=== PATIENT | female | born 1930 | race Caucasian/White ===

== ENCOUNTER 2016-04-22 12:22 | Inpatient (IN) | payer MEDICARE, OTHER ==
[2016-04-22] MEDS ORDERED: FUROSEMIDE 10 MG/ML 4 ML VIAL IV STA (12:24)
[2016-04-22] MEDS ORDERED: IPRATROPIUM-ALBUTEROL 3 ML NEB INHALATION STA (12:24)
[2016-04-22] MEDS ORDERED: NITROGLYCERIN OINT 1 INCH/GM PACKET TOPICAL STA (12:24)
--- NOTE | 2016-04-22 12:26 | ED ---
SOB HPI - General Stated Complaint: ANGELITA Time Seen by Provider: 04/22/16 12:22 Source: patient, EMS, RN notes reviewed Mode of arrival: EMS - History of Present Illness Initial Comments: This is a 85-year-old female history of CHF who apparently has had 3 days of shortness of breath which is getting progressively worse. She was on Lasix but was given 40 mg Lasix IM this morning at 10 AM without much relief. She was given 2 DuoNeb's and route as well as nitro which did drop her pressure somewhat but also did help the breathing. She did reportedly have audible rhonchi. No fevers chills or sweats reported no chest pain. MD Complaint: shortness of breath - Related Data Home Medications Medication Instructions Recorded Confirmed Memantine [Namenda] 10 mg PO BID 04/10/15 04/22/16 Acetaminophen Tab [Tylenol Tab] 650 mg PO Q4H PRN 04/22/16 04/22/16 Ascorbic Acid [Vitamin C] 500 mg PO HS 04/22/16 04/22/16 Biotin 250 mg PO DAILY 04/22/16 04/22/16 Bisacodyl 10 mg RECTAL DAILY PRN 04/22/16 04/22/16 Dermaseptin Ointment 1 applic TOPICAL TID 04/22/16 04/22/16 Furosemide [Lasix] 40 mg PO ONCE 04/22/16 04/22/16 Ipratropium-Albuterol Nebulize 3 ml INHALATION Q6H PRN 04/22/16 04/22/16 [Duoneb 0.5 mg-3 mg/3 ml Soln] Magnesium Oxide [Mag-Ox] 250 mg PO DAILY 04/22/16 04/22/16 Multivitamins, Thera [Multivitamin] 1 tab PO HS 04/22/16 04/22/16 [place]-3 Fatty Acids/Fish Oil [Fish 1 cap PO HS 04/22/16 04/22/16 Oil 1,000 mg Softgel] Ubidecarenone [Co Q-10] 200 mg PO DAILY 04/22/16 04/22/16 Zinc 50 mg PO DAILY 04/22/16 04/22/16 guaiFENesin-DM 100-10MG/5ML 10 ml PO Q6H PRN 04/22/16 04/22/16 [Robitussin DM] predniSONE 40 mg PO DAILY 04/22/16 04/22/16 Previous Rx's Medication Instructions Recorded Aspirin 81 mg PO DAILY #1 chew 03/17/14 Allergies Allergy/AdvReac Type Severity Reaction Status Date / Time No Known Allergies Allergy Verified 04/22/16 12:36 Review of Systems ROS Statement: Those systems with pertinent positive or pertinent negative responses have been documented in the HPI. ROS Other: All systems not noted in ROS Statement are negative. Past Medical History Past Medical History: Heart Failure, Dementia, Thyroid Disorder History of Any Multi-Drug Resistant Organisms: None Reported Past Surgical History: Tonsillectomy Past Anesthesia/Blood Transfusion Reactions: No Reported Reaction Past Psychological History: No Psychological Hx Reported Smoking Status: Former smoker Past Alcohol Use History: None Reported Past Drug Use History: None Reported - Past Family History Mother Family Medical History: Diabetes Mellitus Father Family Medical History: No Reported History General Exam - General Exam Comments Initial Comments: This is a well-developed well-nourished awake alert anxious appearing female Limitations: no limitations General appearance: alert, anxious, in distress Head exam: Present: atraumatic, normocephalic, normal inspection Eye exam: Present: normal appearance, PERRL, EOMI. Absent: scleral icterus, conjunctival injection, periorbital swelling ENT exam: Present: mucous membranes dry Neck exam: Present: normal inspection. Absent: tenderness, meningismus, lymphadenopathy Respiratory exam: Present: rales, rhonchi, accessory muscle use, decreased breath sounds. Absent: respiratory distress, wheezes, stridor Cardiovascular Exam: Present: normal rhythm, tachycardia, normal heart sounds. Absent: systolic murmur, diastolic murmur, rubs, gallop, clicks GI/Abdominal exam: Present: soft, normal bowel sounds. Absent: distended, tenderness, guarding, rebound, rigid Extremities exam: Present: normal inspection, full ROM, normal capillary refill. Absent: tenderness, pedal edema, joint swelling, calf tenderness Back exam: Present: normal inspection Neurological exam: Present: alert, oriented X3, CN II-XII intact Psychiatric exam: Present: anxious Skin exam: Present: warm, dry, intact, normal color. Absent: rash Course Vital Signs 04/22/16 04/22/16 04/22/16 12:27 13:00 13:14 Temperature 97.5 F L Pulse Rate 90 94 105 H Respiratory 24 36 H 33 H Rate Blood Pressure 136/59 O2 Sat by Pulse 96 Oximetry 04/22/16 04/22/16 04/22/16 13:32 14:25 15:19 Temperature Pulse Rate 111 H 105 H 104 H Respiratory 22 18 22 Rate Blood Pressure 133/59 147/65 145/61 O2 Sat by Pulse 96 94 L 94 L Oximetry 04/22/16 17:09 Temperature Pulse Rate 133 H Respiratory 18 Rate Blood Pressure 113/69 O2 Sat by Pulse 97 Oximetry - Reevaluation(s) Reevaluation #1: 04/22/16 17:12 I did reevaluate the patient several occasions she get some improvement with the initial treatment. She still remained tachycardic. Reevaluation #2: 04/22/16 17:13 I did discuss the case with Dr. Pedroza did come in the emergency department see the patient. Pulmonalis and was considered. CAT scan was performed and there is no definitive evidence of embolism at this time. Pulmonary fibrotic changes are present however. Medical Decision Making - Medical Decision Making The patient will be admitted for evaluation of dyspnea. She is a former smoker primary fibrosis is considered as well as COPD. Though clinically the patient did appear to have evidence of congestive failure her BMP was within normal limits for her age. - Lab Data Result diagrams: 04/22/16 12:39 04/22/16 12:39 Lab Results 04/22/16 04/22/16 04/22/16 Range/Units 12:39 12:39 12:39 WBC 5.6 (3.8-10.6) k/uL RBC 4.22 (3.80-5.40) m/uL Hgb 13.2 (11.4-16.0) gm/dL Hct 39.7 (34.0-46.0) % MCV 94.2 (80.0-100.0) fL MCH 31.2 (25.0-35.0) pg MCHC 33.1 (31.0-37.0) g/dL RDW 12.4 (11.5-15.5) % Plt Count 169 (150-450) k/uL Neutrophils % 86 % Lymphocytes % 10 % Monocytes % 3 % Eosinophils % 0 % Basophils % 0 % Neutrophils # 4.8 (1.3-7.7) k/uL Lymphocytes # 0.6 L (1.0-4.8) k/uL Monocytes # 0.1 (0-1.0) k/uL Eosinophils # 0.0 (0-0.7) k/uL Basophils # 0.0 (0-0.2) k/uL PT (9.0-12.0) sec INR (<1.1) APTT (22.0-30.0) sec Sodium 135 L (137-145) mmol/L Potassium 4.5 (3.5-5.1) mmol/L Chloride 93 L (98-107) mmol/L Carbon Dioxide 31 H (22-30) mmol/L Anion Gap 11 mmol/L BUN 12 (7-17) mg/dL Creatinine 0.51 L (0.52-1.04) mg/dL Est GFR (MDRD) Af Amer >60 (>60 ml/min/1.73 sqM) Est GFR (MDRD) Non-Af >60 (>60 ml/min/1.73 sqM) Glucose 176 H (74-99) mg/dL Calcium 9.7 (8.4-10.2) mg/dL Magnesium 1.7 (1.6-2.3) mg/dL Total Bilirubin 0.3 (0.2-1.3) mg/dL AST 18 (14-36) U/L ALT 25 (9-52) U/L Alkaline Phosphatase 131 H (38-126) U/L Total Creatine Kinase <20 L (30-135) U/L CK-MB (CK-2) 0.7 (0.0-2.4) ng/mL CK-MB (CK-2) Rel Index 0.0 Troponin I <0.012 (0.000-0.034) ng/mL NT-Pro-B Natriuret Pep pg/mL Total Protein 6.9 (6.3-8.2) g/dL Albumin 3.7 (3.5-5.0) g/dL 04/22/16 04/22/16 Range/Units 12:39 12:39 WBC (3.8-10.6) k/uL RBC (3.80-5.40) m/uL Hgb (11.4-16.0) gm/dL Hct (34.0-46.0) % MCV (80.0-100.0) fL MCH (25.0-35.0) pg MCHC (31.0-37.0) g/dL RDW (11.5-15.5) % Plt Count (150-450) k/uL Neutrophils % % Lymphocytes % % Monocytes % % Eosinophils % % Basophils % % Neutrophils # (1.3-7.7) k/uL Lymphocytes # (1.0-4.8) k/uL Monocytes # (0-1.0) k/uL Eosinophils # (0-0.7) k/uL Basophils # (0-0.2) k/uL PT 10.1 (9.0-12.0) sec INR 1.0 (<1.1) APTT 23.5 (22.0-30.0) sec Sodium (137-145) mmol/L Potassium (3.5-5.1) mmol/L Chloride (98-107) mmol/L Carbon Dioxide (22-30) mmol/L Anion Gap mmol/L BUN (7-17) mg/dL Creatinine (0.52-1.04) mg/dL Est GFR (MDRD) Af Amer (>60 ml/min/1.73 sqM) Est GFR (MDRD) Non-Af (>60 ml/min/1.73 sqM) Glucose (74-99) mg/dL Calcium (8.4-10.2) mg/dL Magnesium (1.6-2.3) mg/dL Total Bilirubin (0.2-1.3) mg/dL AST (14-36) U/L ALT (9-52) U/L Alkaline Phosphatase (38-126) U/L Total Creatine Kinase (30-135) U/L CK-MB (CK-2) (0.0-2.4) ng/mL CK-MB (CK-2) Rel Index Troponin I (0.000-0.034) ng/mL NT-Pro-B Natriuret Pep 532 pg/mL Total Protein (6.3-8.2) g/dL Albumin (3.5-5.0) g/dL - EKG Data -: EKG Interpreted by Nd EKG shows normal: sinus rhythm (Sinus rhythm rate 92 [place] interval 150 QRS duration 90 QT/QTC of 336/[address] changes artifact is present) - Radiology Data Radiology results: report reviewed (I did review the x-rays and a CAT scan reports. There is evidence of pulmonary fibrotic changes no definite evidence of pulmonary embolism no filling defects. No hilar masses no mediastinal adenopathy. There is erythematous thoracic aorta.), image reviewed Critical Care Time Critical Care Time: Yes Critical Care Time: 34 minutes of critical care time which included initial monitoring the EMS run and discussed with paramedics. Social history and physical the patient. Labs and x-ray orders as well as evaluation of same. Evaluation the patient on multiple occasions for responsive therapy. Discussion with family members discussion with family. Discussion with the admitting physician. Admission orders and documentation of the above. Disposition Clinical Impression: Acute exacerbation of chronic obstructive airways disease, Adult respiratory distress syndrome, Pulmonary fibrosis, Tachycardia Disposition: ADMITTED IP TO THIS HOSP Condition: Stable
[2016-04-22 12:49] LABS: Basophils % (A) 0 %; CH 31.9; CHCM 34.1; Eosinophils % (A) 0 %; HCT 39.7 % (34.0-46.0); HDW 2.43; HGB 13.2 gm/dL (11.4-16.0); Luc # (Auto) 0.05; Luc % (Auto) 1; Lymphocytes # (A) 0.6 k/uL (1.0-4.8); Lymphocytes % (A) 10 %; MCH 31.2 pg (25.0-35.0); MCHC 33.1 g/dL (31.0-37.0); MCV 94.2 fL (80.0-100.0); Mean Platelet Volume 7.3; Monocytes # (A) 0.1 k/uL (0-1.0); Monocytes % (A) 3 %; Neutrophils # (A) 4.8 k/uL (1.3-7.7); Neutrophils % (A) 86 %; RBC 4.22 m/uL (3.80-5.40); RDW 12.4 % (11.5-15.5); WBC 5.6 k/uL (3.8-10.6); WBC (Perox) 5.62
[2016-04-22 12:57] LABS: ALT 25 U/L (9-52); AST 18 U/L (14-36); Alkaline Phosphatase 131 U/L (38-126); Anion Gap 11 mmol/L; Blood Urea Nitrogen 12 mg/dL (7-17); Calcium 9.7 mg/dL (8.4-10.2); Carbon Dioxide 31 mmol/L (22-30); Chloride 93 mmol/L (98-107); Glucose 176 mg/dL (74-99); Magnesium 1.7 mg/dL (1.6-2.3); Non-African American GFR(MDRD) >60 (>60 ml/min/1.73 sqM); Potassium 4.5 mmol/L (3.5-5.1); Sodium 135 mmol/L (137-145); Total Bilirubin 0.3 mg/dL (0.2-1.3); Total Protein 6.9 g/dL (6.3-8.2)
[2016-04-22 12:58] LABS: Partial Thromboplastin Time 23.5 sec (22.0-30.0); Prothrombin Time 10.1 sec (9.0-12.0)
--- NOTE | 2016-04-22 13:00 | XR ---
EXAMINATION TYPE: XR chest 2V DATE OF EXAM: 04/22/2016 12:52 PM COMPARISON: 04/09/2015 HISTORY: Difficulty breathing FINDINGS: The lungs are clear and there is no pneumothorax, pleural effusion, or focal pneumonia. The heart is enlarged. Diffuse osteopenia and arthropathy of the shoulders noted. Coarsened interstitium noted correlate for underlying COPD and interstitial lung disease. Hypertrophic and degenerative change of the spine. IMPRESSION: 1. Correlate for COPD. Interstitium is coarsened which can be seen with chronic interstitial lung dis ease. Acute interstitial pneumonitis or mild venous congestion not excluded correlate clinically.
[2016-04-22 13:11] LABS: Creatine Kinase <20 U/L (30-135)
[2016-04-22 13:24] LABS: Creatine Kinase MB 0.7 ng/mL (0.0-2.4); Troponin I <0.012 ng/mL (0.000-0.034)
[2016-04-22] MEDS ORDERED: guaiFENesin-DM 100-10MG/5ML 10 ML CUP PO PRN (15:33)
[2016-04-22] MEDS ORDERED: IPRATROPIUM-ALBUTEROL 3 ML NEB INHALATION PRN ×2 (15:33→20:38)
[2016-04-22] MEDS ORDERED: RX INFO: IV CONTRAST WAS GIVEN 1 EACH MISC MISCELLANE PRN (15:42)
--- NOTE | 2016-04-22 16:53 | CT ---
EXAMINATION TYPE: CT angio chest DATE OF EXAM: 04/22/2016 4:43 PM COMPARISON: NONE HISTORY: Patient poor historian. Patient shows signs of difficulty breathing and chest congestion. CT DLP: 286.9 mGycm Automated exposure control for dose reduction was used. CONTRAST: CTA scan of the thorax is performed with IV Contrast, patient injected with 100 mL of Omnipaque 350, pulmonary embolism protocol. MIP images are created and reviewed. 3D reconstructed images are creat ed on an independent workstation and reviewed. FINDINGS: There is mild coarsening of interstitial markings. There is no sign of a pulmonary mass. Heart is enl arged. Exam is limited slightly by motion. I see no filling defects in the pulmonary arteries. There are no hilar masses. There is no mediastina l adenopathy. Thoracic aorta is atheromatous. IMPRESSION: PULMONARY FIBROTIC CHANGES. CARDIOMEGALY. LIMITED EXAM DUE TO MOTION. NO DEFINITE EVIDENCE FOR PULMON JEWEL EMBOLISM.
[2016-04-22] MEDS ORDERED: ACETAMINOPHEN TAB 325 MG TAB PO PRN (17:24)
[2016-04-22] MEDS ORDERED: methylPREDNISolone SOD SUCCI 125 MG/2 ML VIAL IV SCH (18:00)
[2016-04-22] MEDS: SODIUM CHLORIDE 0.9% 1,000 ML IV SCH (18:50)
--- NOTE | 2016-04-22 19:23 | P.HPIM ---
History of Present Illness H&P Date: 04/22/16 Chief Complaint: Difficulty breathing 84-year-old female who is currently a resident of [facility] is admitted to the hospital with complaints of difficulty breathing. Patient was accompanied by her daughter's friend who apparently noted that she was in her normal health until 2 days ago. Patient apparently was progressively gotten worse in regards to her breathing and hence was sent to the hospital by the [place] [facility]. Most of the history is obtained from the chart as patient is minimally responsive to questions. States that she is fine. Denies having any cough, chest pain, abdominal pain or diarrhea. In the ER an EKG did not reveal any ST-T wave changes. A chest x-ray initially showed increased interstitial markings. Patient was on prednisone 40 mg prior to admission. Patient apparently does have a remote history of smoking. She was tachycardic and with patient being nonambulatory and suspicion of a pulmonary embolism a CT angiogram was done which was negative. Patient however does have signs of pulmonary fibrosis and increased interstitial markings. Review of Systems All systems: negative (Described in HPI) Past Medical History Past Medical History: Heart Failure, Dementia, Thyroid Disorder Additional Past Medical History / Comment(s): Parkinsons Disease History of Any Multi-Drug Resistant Organisms: None Reported Past Surgical History: Tonsillectomy Additional Past Surgical History / Comment(s): Right hip replacement Past Anesthesia/Blood Transfusion Reactions: No Reported Reaction Past Psychological History: No Psychological Hx Reported Smoking Status: Former smoker Past Alcohol Use History: None Reported Past Drug Use History: None Reported - Past Family History Mother Family Medical History: Diabetes Mellitus Father Family Medical History: No Reported History Medications and Allergies Home Medications Medication Instructions Recorded Confirmed Type Memantine [Namenda] 10 mg PO BID 04/10/15 04/22/16 History Acetaminophen Tab [Tylenol Tab] 650 mg PO Q4H PRN 04/22/16 04/22/16 History Ascorbic Acid [Vitamin C] 500 mg PO HS 04/22/16 04/22/16 History Biotin 250 mg PO DAILY 04/22/16 04/22/16 History Bisacodyl 10 mg RECTAL DAILY PRN 04/22/16 04/22/16 History Dermaseptin Ointment 1 applic TOPICAL TID 04/22/16 04/22/16 History Furosemide [Lasix] 40 mg PO ONCE 04/22/16 04/22/16 History Ipratropium-Albuterol Nebulize 3 ml INHALATION Q6H PRN 04/22/16 04/22/16 History [Duoneb 0.5 mg-3 mg/3 ml Soln] Magnesium Oxide [Mag-Ox] 250 mg PO DAILY 04/22/16 04/22/16 History Multivitamins, Thera [Multivitamin] 1 tab PO HS 04/22/16 04/22/16 History [place]-3 Fatty Acids/Fish Oil [Fish 1 cap PO HS 04/22/16 04/22/16 History Oil 1,000 mg Softgel] Ubidecarenone [Co Q-10] 200 mg PO DAILY 04/22/16 04/22/16 History Zinc 50 mg PO DAILY 04/22/16 04/22/16 History guaiFENesin-DM 100-10MG/5ML 10 ml PO Q6H PRN 04/22/16 04/22/16 History [Robitussin DM] predniSONE 40 mg PO DAILY 04/22/16 04/22/16 History Allergies Allergy/AdvReac Type Severity Reaction Status Date / Time No Known Allergies Allergy Verified 04/22/16 12:36 Physical Exam Vitals: Vital Signs Temp Pulse Pulse Resp BP BP Pulse Ox 04/22/16 18:38 97.4 F L 107 H 20 142/66 95 04/22/16 17:54 98.4 F 94 22 144/65 100 04/22/16 17:28 98.2 F 104 H 24 125/57 104 H Intake and Output 04/22/16 04/22/16 04/22/16 06:59 14:59 22:59 Other: Weight 61.235 kg Patient Weight 04/23/16 06:59 Weight 61.235 kg Gen. appearance patient answers only a few questions in no distress Lungs diffuse wheezes and no rhonchi appreciated Heart slightly tachycardic no murmur appreciated Abdomen is soft nontender no organomegaly. Lower extremity is 1+ edema is appreciated Neurologically moves all 4 extremities however does not follow all commands at this time. Results CBC & Chem 7: 04/22/16 12:39 04/22/16 12:39 Assessment and Plan Plan: #1 acute hypoxic respiratory failure secondary to an acute exacerbation of COPD likely from tracheobronchitis #2 history of diastolic heart failure #3 history of hypertension #4 history of dementia #5 previous history of a right hip fracture #6 metabolic alkalosis #7 debility Plan Start patient on IV Solu-Medrol 40 mg every 8 hours. Breathing treatments as scheduled.Code status will need to be addressed DVT prophyalxis.
[2016-04-22] MEDS ORDERED: IPRATROPIUM-ALBUTEROL 3 ML NEB INHALATION SCH (20:00)
[2016-04-22] MEDS ORDERED: NON-FORMULARY DRUG (Omega-3 Fatty Acids/Fish Oil [Fish Oil 1,000 Mg Softgel] 1 CAP) PO SCH (21:00)
[2016-04-22] MEDS: MULTIVITAMINS, THERA 1 EACH TAB PO SCH (21:04)
[2016-04-22] MEDS: MEMANTINE 10 MG TAB PO SCH (21:04)
[2016-04-22] MEDS: ASCORBIC ACID 500 MG TAB PO SCH (21:04)
[2016-04-22] MEDS: AZITHROMYCIN 250 MG TAB PO SCH (21:04)
[2016-04-23] MEDS: methylPREDNISolone SOD SUCCI 40 MG/ML 1 ML VIAL IV SCH ×4 (00:12→23:14)
[2016-04-23] MEDS: IPRATROPIUM-ALBUTEROL 3 ML NEB INHALATION SCH ×4 (07:09→20:02)
[2016-04-23] MEDS: ASPIRIN 81 MG CHEW PO SCH (08:09)
[2016-04-23] MEDS: MEMANTINE 10 MG TAB PO SCH ×2 (08:09→20:22)
[2016-04-23] MEDS: AZITHROMYCIN 250 MG TAB PO SCH (08:09)
[2016-04-23] MEDS: ZINC GLUCONATE 50 MG TAB PO SCH (08:09)
[2016-04-23] MEDS: MAGNESIUM OXIDE 250 MG TAB PO SCH (08:09)
[2016-04-23] MEDS ORDERED: AZITHROMYCIN 250 MG TAB PO SCH (09:00)
[2016-04-23] MEDS ORDERED: NON-FORMULARY DRUG (Ubidecarenone [Co Q-10] 200 MG) PO SCH (09:00)
[2016-04-23] MEDS ORDERED: predniSONE 20 MG TAB PO SCH (09:00)
[2016-04-23 09:27] LABS: Basophils % (A) 0 %; CH 31.5; Eosinophils % (A) 0 %; HCT 39.1 % (34.0-46.0); HDW 2.35; HGB 12.9 gm/dL (11.4-16.0); Luc # (Auto) 0.02; Luc % (Auto) 0; Lymphocytes # (A) 0.6 k/uL (1.0-4.8); Lymphocytes % (A) 6 %; MCH 30.9 pg (25.0-35.0); MCHC 33.1 g/dL (31.0-37.0); MCV 93.2 fL (80.0-100.0); Mean Platelet Volume 7.6; Monocytes # (A) 0.3 k/uL (0-1.0); Monocytes % (A) 4 %; Neutrophils # (A) 8.8 k/uL (1.3-7.7); Neutrophils % (A) 90 %; RDW 12.4 % (11.5-15.5); WBC 9.8 k/uL (3.8-10.6); WBC (Perox) 9.91
[2016-04-23 09:48] LABS: ALT 31 U/L (9-52); AST 15 U/L (14-36); Alkaline Phosphatase 133 U/L (38-126); Anion Gap 12 mmol/L; Blood Urea Nitrogen 18 mg/dL (7-17); Calcium 10.1 mg/dL (8.4-10.2); Carbon Dioxide 32 mmol/L (22-30); Chloride 96 mmol/L (98-107); Glucose 150 mg/dL (74-99); Non-African American GFR(MDRD) >60 (>60 ml/min/1.73 sqM); Potassium 3.8 mmol/L (3.5-5.1); Sodium 140 mmol/L (137-145); Total Bilirubin 0.3 mg/dL (0.2-1.3); Total Protein 6.7 g/dL (6.3-8.2)
[2016-04-23] MEDS: SODIUM CHLORIDE 0.9% 1,000 ML IV SCH (18:15)
[2016-04-23] MEDS: ASCORBIC ACID 500 MG TAB PO SCH (20:22)
[2016-04-23] MEDS: MULTIVITAMINS, THERA 1 EACH TAB PO SCH (20:22)
--- NOTE | 2016-04-23 21:00 | P.PN ---
Subjective Principal diagnosis: Change in mental status. 84-year-old female with history of COPD is admitted to the hospital with acute change in mental status. Patient initially was noted to have some changes in the interstitium. Patient was triaged to the hospital from a half-way where she currently resides. During my examination the ER on the day of admission patient was not able to answer any questions. Patient was noted to be wheezing. A CT angiogram was done to rule out PE which was noted to have some pulmonary fibrosis and no signs of pneumonia. Today patient is more arousable states her her breathing is significantly better. Is able to answer questions more appropriately. Denies having any fevers, chills, nausea, vomiting. Objective - Vital Signs Vital signs: Vital Signs Temp 97.4 F L 04/23/16 14:56 Pulse 80 04/23/16 20:12 Resp 20 04/23/16 14:56 BP 128/64 04/23/16 14:56 Pulse Ox 93 L 04/23/16 14:56 Intake & Output 04/23/16 04/23/16 04/24/16 06:59 18:59 06:59 Intake Total 100 Balance 100 Weight 71.5 kg Intake: Oral 100 Other: # Voids 2 3 # Bowel Movements 2 2 - Exam Gen. appearance alert oriented 3 in no distress Lungs good air movement trace respiratory crackles at the bases no wheezing appreciated today Heart regular rate and rhythm no murmurs appreciated Abdomen is soft nontender no organomegaly Lower extremities trace edema appreciated Neurologically is moving all 4 ext. cranial nerves 2-12 grossly intact - Labs CBC & Chem 7: 04/23/16 08:05 04/23/16 08:05 Labs: Abnormal Lab Results - Last 24 Hours (Table) 04/23/16 04/23/16 Range/Units 08:05 08:05 Neutrophils # 8.8 H (1.3-7.7) k/uL Lymphocytes # 0.6 L (1.0-4.8) k/uL Chloride 96 L (98-107) mmol/L Carbon Dioxide 32 H (22-30) mmol/L BUN 18 H (7-17) mg/dL Glucose 150 H (74-99) mg/dL Alkaline Phosphatase 133 H (38-126) U/L Assessment and Plan Plan: #1 acute hypoxic respiratory failure secondary to an acute exacerbation of COPD likely from tracheobronchitis #2 history of diastolic heart failure #3 history of hypertension #4 history of dementia #5 previous history of a right hip fracture #6 metabolic alkalosis #7 debility 8. Acute metabolic encephalopathy that is improved Plan Continue IV Solu-Medrol 40 mg every 8 hours. Breathing treatments as scheduled.Code status will need to be addressed Urinanalysis. Continue ongoing care. Dispo: if improvement continues, likely in the next 24-48 hrs. DVT prophyalxis.
[2016-04-24] MEDS: MEMANTINE 10 MG TAB PO SCH ×2 (08:06→20:53)
[2016-04-24] MEDS: ASPIRIN 81 MG CHEW PO SCH (08:06)
[2016-04-24] MEDS: MAGNESIUM OXIDE 250 MG TAB PO SCH (08:06)
[2016-04-24] MEDS: ZINC GLUCONATE 50 MG TAB PO SCH (08:06)
[2016-04-24] MEDS: AZITHROMYCIN 250 MG TAB PO SCH (08:06)
[2016-04-24] MEDS: methylPREDNISolone SOD SUCCI 40 MG/ML 1 ML VIAL IV SCH ×3 (08:06→23:05)
[2016-04-24] MEDS: IPRATROPIUM-ALBUTEROL 3 ML NEB INHALATION SCH ×4 (09:50→20:39)
[2016-04-24] MEDS ORDERED: FUROSEMIDE 10 MG/ML 4 ML VIAL IV STA (09:50)
[2016-04-24 10:24] LABS: Basophils % (A) 0 %; CH 31.1; CHCM 32.3; Eosinophils % (A) 0 %; HCT 42.6 % (34.0-46.0); HDW 2.33; HGB 13.5 gm/dL (11.4-16.0); Luc # (Auto) 0.05; Luc % (Auto) 1; Lymphocytes # (A) 0.8 k/uL (1.0-4.8); Lymphocytes % (A) 8 %; MCH 30.7 pg (25.0-35.0); MCHC 31.8 g/dL (31.0-37.0); MCV 96.5 fL (80.0-100.0); Mean Platelet Volume 6.6; Monocytes # (A) 0.2 k/uL (0-1.0); Monocytes % (A) 3 %; Neutrophils # (A) 8.5 k/uL (1.3-7.7); Neutrophils % (A) 89 %; RBC 4.42 m/uL (3.80-5.40); RDW 12.4 % (11.5-15.5); WBC 9.6 k/uL (3.8-10.6); WBC (Perox) 9.95
[2016-04-24 10:26] LABS: ALT 30 U/L (9-52); AST 30 U/L (14-36); Alkaline Phosphatase 107 U/L (38-126); Anion Gap 13 mmol/L; Blood Urea Nitrogen 21 mg/dL (7-17); Carbon Dioxide 30 mmol/L (22-30); Chloride 99 mmol/L (98-107); Glucose 215 mg/dL (74-99); Non-African American GFR(MDRD) >60 (>60 ml/min/1.73 sqM); Potassium 3.8 mmol/L (3.5-5.1); Sodium 142 mmol/L (137-145); Total Bilirubin 0.4 mg/dL (0.2-1.3); Total Protein 6.8 g/dL (6.3-8.2)
[2016-04-24 11:23] LABS: Appearance,Urine Clear (Clear); Bilirubin,Urine Negative (Negative); Glucose,Urine (UA) Negative (Negative); Ketones,Urine Negative (Negative); Leukocyte Esterase,Urine Negative (Negative); Nitrite,Urine Negative (Negative); PH, Urine 6.5 (5.0-8.0); Protein,Urine Negative (Negative); Specific Gravity,Urine 1.004 (1.001-1.035); UA Billing (MACRO vs. MICRO) CHEM; Urobilinogen,Urine <2.0 mg/dL (<2.0)
[2016-04-24] MEDS: SODIUM CHLORIDE 0.9% 1,000 ML IV SCH (15:23)
[2016-04-24] MEDS: ASCORBIC ACID 500 MG TAB PO SCH (20:53)
[2016-04-24] MEDS: MULTIVITAMINS, THERA 1 EACH TAB PO SCH (20:53)
--- NOTE | 2016-04-24 21:44 | P.PN ---
Subjective Principal diagnosis: Change in mental status. 84-year-old female with history of COPD is admitted to the hospital with acute change in mental status. Patient initially was noted to have some changes in the interstitium. Patient was triaged to the hospital from a intermediate where she currently resides. During my examination the ER on the day of admission patient was not able to answer any questions. Patient was noted to be wheezing. A CT angiogram was done to rule out PE which was noted to have some pulmonary fibrosis and no signs of pneumonia. Today patient is more arousable states her her breathing is significantly better. Is able to answer questions more appropriately. Denies having any fevers, chills, nausea, vomiting. 04/24/16 Is awake, answers questions. Cough is reported. No fevers, chills, change in bowel habits are reported. Spoke to the daughter in detail, her baseline is that she has dementia, answers some questions appropriately. Objective - Vital Signs Vital signs: Vital Signs Temp 97.3 F L 04/24/16 15:00 Pulse 100 04/24/16 20:49 Resp 16 04/24/16 15:00 BP 140/65 04/24/16 15:00 Pulse Ox 98 04/24/16 15:00 Intake & Output 04/24/16 04/24/16 04/25/16 06:59 18:59 06:59 Intake Total 350 Balance 350 Weight 73.5 kg Intake: Oral 350 Other: # Voids 3 2 - Exam Gen. appearance alert oriented 3 in no distress Lungs good air movement trace respiratory crackles at the bases no wheezing appreciated today Heart regular rate and rhythm no murmurs appreciated Abdomen is soft nontender no organomegaly Lower extremities trace edema appreciated Neurologically is moving all 4 ext. cranial nerves 2-12 grossly intact - Labs CBC & Chem 7: 04/24/16 09:57 04/24/16 09:57 Labs: Abnormal Lab Results - Last 24 Hours (Table) 04/24/16 04/24/16 Range/Units 09:57 09:57 Neutrophils # 8.5 H (1.3-7.7) k/uL Lymphocytes # 0.8 L (1.0-4.8) k/uL BUN 21 H (7-17) mg/dL Creatinine 0.45 L (0.52-1.04) mg/dL Glucose 215 H (74-99) mg/dL Microbiology - Last 24 Hours (Table) 04/24/16 11:00 Urine Culture - Preliminary Urine,Clean Catch Assessment and Plan Plan: #1 acute hypoxic respiratory failure secondary to an acute exacerbation of COPD likely from tracheobronchitis #2 history of diastolic heart failure #3 history of hypertension #4 history of dementia #5 previous history of a right hip fracture #6 metabolic alkalosis #7 debility 8. Acute metabolic encephalopathy that is improved Plan Continue IV Solu-Medrol 40 mg every 8 hours. Breathing treatments as scheduled.Code status will need to be addressed. Currently a Full code. Continue ongoing care. Dispo: once breathing imrproves, will likely dc home in the next 24-48 hrs.
[2016-04-25] MEDS: MEMANTINE 10 MG TAB PO SCH ×2 (07:49→20:33)
[2016-04-25] MEDS: ASPIRIN 81 MG CHEW PO SCH (07:50)
[2016-04-25] MEDS: MAGNESIUM OXIDE 250 MG TAB PO SCH (07:50)
[2016-04-25] MEDS: ZINC GLUCONATE 50 MG TAB PO SCH (07:50)
[2016-04-25] MEDS: methylPREDNISolone SOD SUCCI 40 MG/ML 1 ML VIAL IV SCH ×3 (07:50→23:55)
[2016-04-25] MEDS: AZITHROMYCIN 250 MG TAB PO SCH (07:50)
[2016-04-25 08:09] LABS: ALT 34 U/L (9-52); AST 23 U/L (14-36); Alkaline Phosphatase 105 U/L (38-126); Anion Gap 9 mmol/L; Blood Urea Nitrogen 23 mg/dL (7-17); Calcium 10.2 mg/dL (8.4-10.2); Carbon Dioxide 37 mmol/L (22-30); Chloride 97 mmol/L (98-107); Glucose 142 mg/dL (74-99); Non-African American GFR(MDRD) >60 (>60 ml/min/1.73 sqM); Potassium 4.1 mmol/L (3.5-5.1); Sodium 143 mmol/L (137-145); Total Bilirubin 0.3 mg/dL (0.2-1.3); Total Protein 6.6 g/dL (6.3-8.2)
[2016-04-25 08:10] LABS: Basophils % (A) 0 %; CH 31.2; CHCM 33.1; Eosinophils % (A) 0 %; HCT 42.5 % (34.0-46.0); HDW 2.39; HGB 13.7 gm/dL (11.4-16.0); Luc # (Auto) 0.06; Luc % (Auto) 1; Lymphocytes # (A) 0.7 k/uL (1.0-4.8); Lymphocytes % (A) 9 %; MCH 30.4 pg (25.0-35.0); MCHC 32.2 g/dL (31.0-37.0); MCV 94.5 fL (80.0-100.0); Mean Platelet Volume 6.5; Monocytes # (A) 0.3 k/uL (0-1.0); Monocytes % (A) 4 %; Neutrophils # (A) 7.3 k/uL (1.3-7.7); Neutrophils % (A) 87 %; RDW 12.3 % (11.5-15.5); WBC 8.4 k/uL (3.8-10.6)
[2016-04-25] MEDS: IPRATROPIUM-ALBUTEROL 3 ML NEB INHALATION SCH ×4 (08:55→20:28)
--- NOTE | 2016-04-25 15:48 | XR ---
EXAMINATION TYPE: XR chest 2V DATE OF EXAM: 04/25/2016 3:30 PM COMPARISON: Prior chest x-ray 22 April 2016 HISTORY: Congestive heart failure, cough and shortness of breath TECHNIQUE: Frontal and lateral views of the chest are obtained. FINDINGS: The heart remains enlarged, although patient is rotated. There is some improvement in aera tion. No pneumothorax or pleural effusion. Minimal patchy basilar density is noted. Prominent lung vo lumes suggests underlying COPD. Interstitium is less conspicuous. IMPRESSION: There is improvement in aeration, volume status. Follow-up as indicated.
[2016-04-25] MEDS: SODIUM CHLORIDE 0.9% 1,000 ML IV SCH (15:52)
--- NOTE | 2016-04-25 15:58 | P.PN ---
Subjective Principal diagnosis: Change in mental status. 84-year-old female with history of COPD is admitted to the hospital with acute change in mental status. Patient initially was noted to have some changes in the interstitium. Patient was triaged to the hospital from a assisted where she currently resides. During my examination the ER on the day of admission patient was not able to answer any questions. Patient was noted to be wheezing. A CT angiogram was done to rule out PE which was noted to have some pulmonary fibrosis and no signs of pneumonia. Today patient is more arousable states her her breathing is significantly better. Is able to answer questions more appropriately. Denies having any fevers, chills, nausea, vomiting. 04/24/16 Is awake, answers questions. Cough is reported. No fevers, chills, change in bowel habits are reported. Spoke to the daughter in detail, her baseline is that she has dementia, answers some questions appropriately. 04/25/2016. Patient's daughter was at bedside. Patient was having a significant amount of cough however was able to eat her entire meal. Patient has a lot of upper respiratory issues however she is not able to cough appropriately to bring her sputum. Objective - Vital Signs Vital signs: Vital Signs Temp 96.5 F L 04/25/16 07:00 Pulse 96 04/25/16 13:10 Resp 24 04/25/16 07:00 BP 150/75 04/25/16 07:00 Pulse Ox 96 04/25/16 07:00 Intake & Output 04/24/16 04/25/16 04/25/16 18:59 06:59 18:59 Weight 73.5 kg Other: # Voids 2 3 2 # Bowel Movements 1 - Exam Gen. appearance alert oriented 3 in no distress Lungs good air movement trace respiratory crackles at the bases no wheezing appreciated today Heart regular rate and rhythm no murmurs appreciated Abdomen is soft nontender no organomegaly Lower extremities trace edema appreciated Neurologically is moving all 4 ext. cranial nerves 2-12 grossly intact - Labs CBC & Chem 7: 04/25/16 07:25 04/25/16 07:25 Labs: Abnormal Lab Results - Last 24 Hours (Table) 04/25/16 04/25/16 Range/Units 07:25 07:25 Lymphocytes # 0.7 L (1.0-4.8) k/uL Chloride 97 L (98-107) mmol/L Carbon Dioxide 37 H (22-30) mmol/L BUN 23 H (7-17) mg/dL Creatinine 0.48 L (0.52-1.04) mg/dL Glucose 142 H (74-99) mg/dL Microbiology - Last 24 Hours (Table) 04/24/16 11:00 Urine Culture - Preliminary Urine,Clean Catch Gram Neg Bacilli Assessment and Plan Plan: #1 acute hypoxic respiratory failure secondary to an acute exacerbation of COPD likely from tracheobronchitis #2 history of diastolic heart failure #3 history of hypertension #4 history of dementia #5 previous history of a right hip fracture #6 metabolic alkalosis #7 debility 8. Acute metabolic encephalopathy that is improved Plan Continue IV Solu-Medrol 40 mg every 8 hours. Breathing treatments as scheduled.Code status will need to be addressed. Currently a Full code. Continue ongoing care. We'll need one time nasopharyngeal suctioning done by respiratory therapy. Patient will be continued on Mucinex. Patient also also be started on Lasix 20 mg by mouth daily. Dispo: once breathing imrproves, will likely dc home in the next 24-48 hrs.
[2016-04-25] MEDS: FUROSEMIDE 20 MG TAB PO SCH (17:41)
[2016-04-25] MEDS: MULTIVITAMINS, THERA 1 EACH TAB PO SCH (20:33)
[2016-04-25] MEDS: ASCORBIC ACID 500 MG TAB PO SCH (20:33)
[2016-04-26] MEDS: ASPIRIN 81 MG CHEW PO SCH (08:15)
[2016-04-26] MEDS: AZITHROMYCIN 250 MG TAB PO SCH (08:15)
[2016-04-26] MEDS: methylPREDNISolone SOD SUCCI 40 MG/ML 1 ML VIAL IV SCH ×3 (08:15→23:35)
[2016-04-26] MEDS: FUROSEMIDE 20 MG TAB PO SCH (08:15)
[2016-04-26] MEDS: ZINC GLUCONATE 50 MG TAB PO SCH (08:16)
[2016-04-26] MEDS: MAGNESIUM OXIDE 250 MG TAB PO SCH (08:16)
[2016-04-26] MEDS: MEMANTINE 10 MG TAB PO SCH ×2 (08:16→20:47)
[2016-04-26 09:15] LABS: Basophils % (A) 0 %; CH 31.4; CHCM 33.2; Eosinophils % (A) 0 %; HCT 42.8 % (34.0-46.0); HDW 2.39; HGB 13.7 gm/dL (11.4-16.0); Luc # (Auto) 0.08; Luc % (Auto) 1; Lymphocytes # (A) 0.7 k/uL (1.0-4.8); Lymphocytes % (A) 9 %; MCH 30.4 pg (25.0-35.0); MCHC 32.1 g/dL (31.0-37.0); MCV 94.8 fL (80.0-100.0); Mean Platelet Volume 7.3; Monocytes # (A) 0.4 k/uL (0-1.0); Monocytes % (A) 5 %; Neutrophils # (A) 6.7 k/uL (1.3-7.7); Neutrophils % (A) 85 %; RBC 4.52 m/uL (3.80-5.40); RDW 12.2 % (11.5-15.5); WBC 7.8 k/uL (3.8-10.6); WBC (Perox) 8.32
[2016-04-26 09:26] LABS: ALT 77 U/L (9-52); AST 45 U/L (14-36); Alkaline Phosphatase 106 U/L (38-126); Anion Gap 10 mmol/L; Blood Urea Nitrogen 23 mg/dL (7-17); Carbon Dioxide 37 mmol/L (22-30); Chloride 95 mmol/L (98-107); Glucose 142 mg/dL (74-99); Non-African American GFR(MDRD) >60 (>60 ml/min/1.73 sqM); Potassium 4.2 mmol/L (3.5-5.1); Sodium 142 mmol/L (137-145); Total Bilirubin 0.4 mg/dL (0.2-1.3); Total Protein 6.7 g/dL (6.3-8.2)
[2016-04-26] MEDS: IPRATROPIUM-ALBUTEROL 3 ML NEB INHALATION SCH ×4 (09:26→20:24)
[2016-04-26] MEDS: SODIUM CHLORIDE 0.9% 1,000 ML IV SCH (17:03)
[2016-04-26] MEDS: ASCORBIC ACID 500 MG TAB PO SCH (20:47)
[2016-04-26] MEDS: MULTIVITAMINS, THERA 1 EACH TAB PO SCH (20:47)
--- NOTE | 2016-04-27 07:44 | XR ---
EXAMINATION TYPE: XR chest 2V DATE OF EXAM: 04/27/2016 7:26 AM COMPARISON: 04/15/2016 HISTORY: Shortness of breath TECHNIQUE: Frontal and lateral views of the chest are obtained. FINDINGS: Scattered senescent parenchymal changes noted. Hyperinflation compatible with COPD. No evidence for infiltrate. No evidence for atelectasis. Heart size is stable. Improving pulmonary venous congestion without overt failure. Mediastinal structures are stable and grossly unremarkable. No evidence for hilar prominence. Degenerative changes dorsal spine. IMPRESSION: 1. Improving pulmonary venous congestion without overt failure.
[2016-04-27] MEDS: IPRATROPIUM-ALBUTEROL 3 ML NEB INHALATION SCH ×4 (08:38→18:57)
[2016-04-27 09:05] LABS: Basophils % (A) 0 %; CHCM 32.6; Eosinophils % (A) 0 %; HCT 42.6 % (34.0-46.0); HDW 2.39; HGB 13.7 gm/dL (11.4-16.0); Luc # (Auto) 0.06; Luc % (Auto) 1; Lymphocytes # (A) 0.6 k/uL (1.0-4.8); Lymphocytes % (A) 10 %; MCH 30.7 pg (25.0-35.0); MCHC 32.2 g/dL (31.0-37.0); MCV 95.4 fL (80.0-100.0); Mean Platelet Volume 6.5; Monocytes # (A) 0.2 k/uL (0-1.0); Monocytes % (A) 4 %; Neutrophils # (A) 5.6 k/uL (1.3-7.7); Neutrophils % (A) 86 %; RBC 4.46 m/uL (3.80-5.40); RDW 12.1 % (11.5-15.5); WBC 6.6 k/uL (3.8-10.6); WBC (Perox) 7.47
[2016-04-27] MEDS: methylPREDNISolone SOD SUCCI 40 MG/ML 1 ML VIAL IV SCH ×3 (09:08→23:56)
[2016-04-27] MEDS: FUROSEMIDE 20 MG TAB PO SCH ×2 (09:09→16:58)
[2016-04-27] MEDS: AZITHROMYCIN 250 MG TAB PO SCH (09:09)
[2016-04-27] MEDS: MAGNESIUM OXIDE 250 MG TAB PO SCH (09:09)
[2016-04-27] MEDS: ASPIRIN 81 MG CHEW PO SCH (09:09)
[2016-04-27] MEDS: MEMANTINE 10 MG TAB PO SCH ×2 (09:09→20:24)
[2016-04-27 09:10] LABS: ALT 87 U/L (9-52); AST 42 U/L (14-36); Alkaline Phosphatase 92 U/L (38-126); Anion Gap 11 mmol/L; Blood Urea Nitrogen 21 mg/dL (7-17); Carbon Dioxide 34 mmol/L (22-30); Chloride 98 mmol/L (98-107); Glucose 204 mg/dL (74-99); Non-African American GFR(MDRD) >60 (>60 ml/min/1.73 sqM); Sodium 143 mmol/L (137-145); Total Bilirubin 0.4 mg/dL (0.2-1.3); Total Protein 6.4 g/dL (6.3-8.2)
[2016-04-27] MEDS: ZINC GLUCONATE 50 MG TAB PO SCH (09:10)
--- NOTE | 2016-04-27 15:55 | P.PN ---
Subjective Principal diagnosis: Change in mental status. 84-year-old female with history of COPD is admitted to the hospital with acute change in mental status. Patient initially was noted to have some changes in the interstitium. Patient [facility]. During my examination the ER on the day of admission patient was not able to answer any questions. Patient was noted to be wheezing. A CT angiogram was done to rule out PE which was noted to have some pulmonary fibrosis and no signs of pneumonia. Today patient is more arousable states her her breathing is significantly better. Is able to answer questions more appropriately. Denies having any fevers, chills, nausea, vomiting. 04/24/16 Is awake, answers questions. Cough is reported. No fevers, chills, change in bowel habits are reported. Spoke to the daughter in detail, her baseline is that she has dementia, answers some questions appropriately. 04/25/2016. Patient's daughter was at bedside. Patient was having a significant amount of cough however was able to eat her entire meal. Patient has a lot of upper respiratory issues however she is not able to cough appropriately to bring her sputum. Patient was seen on 04/26/2016 04/27/2016 On 04/26/2016 patient continued to have a cough there was some difficulty with swallowing. A swallow eval was obtained. On 04/27/2016 patient stated to have improved continues to have a cough however is weak and has been nonproductive. However her breathing has significant improvement. Objective - Vital Signs Vital signs: Vital Signs Temp 97.2 F L 04/27/16 15:00 Pulse 90 04/27/16 15:23 Resp 20 04/27/16 15:00 BP 132/63 04/27/16 15:00 Pulse Ox 96 04/27/16 15:00 Intake & Output 04/26/16 04/27/16 04/27/16 18:59 06:59 18:59 Intake Total 240 480 700 Output Total 1 Balance 240 480 699 Weight 77.5 kg Intake: Oral 240 480 700 Output: Urine 1 Other: Voiding Method Diaper Diaper Diaper Incontinent Incontinent Incontinent # Voids 1 1 1 # Bowel Movements 0 1 - Exam Gen. appearance alert oriented 3 in no distress Lungs good air movement trace respiratory crackles at the bases no wheezing appreciated today Heart regular rate and rhythm no murmurs appreciated Abdomen is soft nontender no organomegaly Lower extremities trace edema appreciated Neurologically is moving all 4 ext. cranial nerves 2-12 grossly intact - Labs CBC & Chem 7: 04/27/16 08:15 04/27/16 08:15 Labs: Abnormal Lab Results - Last 24 Hours (Table) 04/27/16 04/27/16 Range/Units 08:15 08:15 Lymphocytes # 0.6 L (1.0-4.8) k/uL Carbon Dioxide 34 H (22-30) mmol/L BUN 21 H (7-17) mg/dL Creatinine 0.47 L (0.52-1.04) mg/dL Glucose 204 H (74-99) mg/dL AST 42 H (14-36) U/L ALT 87 H (9-52) U/L Albumin 3.4 L (3.5-5.0) g/dL Microbiology - Last 24 Hours (Table) 04/24/16 11:00 Urine Culture - Final Urine,Clean Catch Escherichia coli Assessment and Plan Plan: #1 acute hypoxic respiratory failure secondary to an acute exacerbation of COPD likely from tracheobronchitis #2 HF PEF with a mild exacerbation as patient is improving on by mouth Lasix. #3 history of hypertension #4 history of dementia #5 previous history of a right hip fracture #6 metabolic alkalosis #7 debility 8. Acute metabolic encephalopathy that is improved Plan Continue IV Solu-Medrol 40 mg every 8 hours. Breathing treatments as scheduled.Code status will need to be addressed. Currently a Full code. Continue ongoing care. We'll need one time nasopharyngeal suctioning done by respiratory therapy. Patient will be continued on Mucinex. Lasix will be increased to 20 mgs twice a day. Repeat labs name. Anticipate discharge in the next 24-48 hours. =.
[2016-04-27] MEDS: SODIUM CHLORIDE 0.9% 1,000 ML IV SCH (17:00)
[2016-04-27] MEDS: ASCORBIC ACID 500 MG TAB PO SCH (20:24)
[2016-04-27] MEDS: MULTIVITAMINS, THERA 1 EACH TAB PO SCH (20:24)
[2016-04-28] MEDS: IPRATROPIUM-ALBUTEROL 3 ML NEB INHALATION SCH ×4 (08:40→19:40)
[2016-04-28 08:44] LABS: Basophils % (A) 0 %; CH 31.3; CHCM 33.3; Eosinophils % (A) 0 %; HCT 42.1 % (34.0-46.0); HDW 2.41; HGB 13.5 gm/dL (11.4-16.0); Luc # (Auto) 0.05; Luc % (Auto) 1; Lymphocytes # (A) 0.6 k/uL (1.0-4.8); Lymphocytes % (A) 7 %; MCH 30.3 pg (25.0-35.0); MCHC 32.1 g/dL (31.0-37.0); MCV 94.4 fL (80.0-100.0); Mean Platelet Volume 7.5; Monocytes # (A) 0.4 k/uL (0-1.0); Monocytes % (A) 5 %; Neutrophils # (A) 6.8 k/uL (1.3-7.7); Neutrophils % (A) 87 %; RBC 4.46 m/uL (3.80-5.40); RDW 12.3 % (11.5-15.5); WBC 7.8 k/uL (3.8-10.6); WBC (Perox) 8.29
[2016-04-28 08:52] LABS: ALT 114 U/L (9-52); AST 48 U/L (14-36); Alkaline Phosphatase 85 U/L (38-126); Anion Gap 6 mmol/L; Blood Urea Nitrogen 22 mg/dL (7-17); Calcium 9.7 mg/dL (8.4-10.2); Carbon Dioxide 38 mmol/L (22-30); Chloride 98 mmol/L (98-107); Glucose 156 mg/dL (74-99); Magnesium 2.4 mg/dL (1.6-2.3); Non-African American GFR(MDRD) >60 (>60 ml/min/1.73 sqM); Potassium 4.2 mmol/L (3.5-5.1); Sodium 142 mmol/L (137-145); Total Bilirubin 0.4 mg/dL (0.2-1.3); Total Protein 5.7 g/dL (6.3-8.2)
[2016-04-28] MEDS: ASPIRIN 81 MG CHEW PO SCH (09:51)
[2016-04-28] MEDS: ZINC GLUCONATE 50 MG TAB PO SCH (09:51)
[2016-04-28] MEDS: MEMANTINE 10 MG TAB PO SCH ×2 (09:51→20:28)
[2016-04-28] MEDS: methylPREDNISolone SOD SUCCI 40 MG/ML 1 ML VIAL IV SCH ×3 (09:51→23:22)
[2016-04-28] MEDS: MAGNESIUM OXIDE 250 MG TAB PO SCH (09:51)
[2016-04-28] MEDS: AZITHROMYCIN 250 MG TAB PO SCH (09:51)
[2016-04-28] MEDS: FUROSEMIDE 20 MG TAB PO SCH ×2 (09:52→18:04)
[2016-04-28 13:51] VITALS: BMI 26.9
--- NOTE | 2016-04-28 16:07 | P.PN ---
Subjective Principal diagnosis: Change in mental status. 84-year-old female with history of COPD is admitted to the hospital with acute change in mental status. Patient initially was noted to have some changes in the interstitium. Patient was triaged to the hospital from a care home where she currently resides. During my examination the ER on the day of admission patient was not able to answer any questions. Patient was noted to be wheezing. A CT angiogram was done to rule out PE which was noted to have some pulmonary fibrosis and no signs of pneumonia. Today patient is more arousable states her her breathing is significantly better. Is able to answer questions more appropriately. Denies having any fevers, chills, nausea, vomiting. 04/24/16 Is awake, answers questions. Cough is reported. No fevers, chills, change in bowel habits are reported. Spoke to the daughter in detail, her baseline is that she has dementia, answers some questions appropriately. 04/25/2016. Patient's daughter was at bedside. Patient was having a significant amount of cough however was able to eat her entire meal. Patient has a lot of upper respiratory issues however she is not able to cough appropriately to bring her sputum. Patient was seen on 04/26/2016 04/27/2016 On 04/26/2016 patient continued to have a cough there was some difficulty with swallowing. A swallow eval was obtained. On 04/27/2016 patient stated to have improved continues to have a cough however is weak and has been nonproductive. However her breathing has significant improvement. 04/28/2016 Patient states to be improved significantly. Continue weak cough. Denies having any fevers, chills, nausea, vomiting. Currently on 2 L of supplement oxygen. No other overnight events reported by the staff. Objective - Vital Signs Vital signs: Vital Signs Temp 97.0 F L 04/28/16 15:00 Pulse 96 04/28/16 15:00 Resp 24 04/28/16 15:00 BP 160/78 04/28/16 15:00 Pulse Ox 96 04/28/16 15:00 Intake & Output 04/27/16 04/28/16 04/28/16 18:59 06:59 18:59 Intake Total 700 1140 Output Total 1 Balance 699 1140 Weight 78 kg 78 kg Intake: Oral 700 1140 Output: Urine 1 Other: Voiding Method Diaper Diaper Diaper Incontinent Incontinent Incontinent # Voids 1 2 2 # Bowel Movements 1 1 - Exam Gen. appearance alert oriented 3 in no distress Lungs good air movement no wheezing or rhonchi appreciated Heart regular rate and rhythm no murmurs appreciated Abdomen is soft nontender no organomegaly Lower extremities trace edema appreciated Neurologically is moving all 4 ext. cranial nerves 2-12 grossly intact - Labs CBC & Chem 7: 04/28/16 08:01 04/28/16 08:01 Labs: Abnormal Lab Results - Last 24 Hours (Table) 04/28/16 04/28/16 Range/Units 08:01 08:01 Lymphocytes # 0.6 L (1.0-4.8) k/uL Carbon Dioxide 38 H (22-30) mmol/L BUN 22 H (7-17) mg/dL Creatinine 0.40 L (0.52-1.04) mg/dL Glucose 156 H (74-99) mg/dL Magnesium 2.4 H (1.6-2.3) mg/dL AST 48 H (14-36) U/L ALT 114 H (9-52) U/L Total Protein 5.7 L (6.3-8.2) g/dL Albumin 3.1 L (3.5-5.0) g/dL Assessment and Plan Plan: #1 acute hypoxic respiratory failure secondary to an acute exacerbation of COPD likely from tracheobronchitis #2 HF PEF with a mild exacerbation as patient is improving on by mouth Lasix. #3 history of hypertension #4 history of dementia #5 previous history of a right hip fracture #6 metabolic alkalosis #7 debility 8. Acute metabolic encephalopathy that is improved Plan Continue IV Solu-Medrol 40 mg every 8 hours. Breathing treatments as scheduled.Code status will need to be addressed. Currently a Full code. Continue ongoing care. Patient is improving. However continues to have a weak cough hence her difficulty breathing has been prolonged. We'll likely discharge the patient 24-48 hours back to [facility]. This was discussed with the patient's daughter =.
[2016-04-28] MEDS: SODIUM CHLORIDE 0.9% 1,000 ML IV SCH (18:05)
[2016-04-28] MEDS: ASCORBIC ACID 500 MG TAB PO SCH (20:28)
[2016-04-28] MEDS: MULTIVITAMINS, THERA 1 EACH TAB PO SCH (20:28)
[2016-04-29 08:04] LABS: Basophils % (A) 0 %; CH 31.2; CHCM 33.1; Eosinophils % (A) 0 %; HCT 45.4 % (34.0-46.0); HDW 2.39; HGB 14.4 gm/dL (11.4-16.0); Luc # (Auto) 0.05; Luc % (Auto) 1; Lymphocytes # (A) 0.7 k/uL (1.0-4.8); Lymphocytes % (A) 8 %; MCH 29.9 pg (25.0-35.0); MCHC 31.6 g/dL (31.0-37.0); MCV 94.8 fL (80.0-100.0); Mean Platelet Volume 7.2; Monocytes # (A) 0.4 k/uL (0-1.0); Monocytes % (A) 4 %; Neutrophils # (A) 7.8 k/uL (1.3-7.7); Neutrophils % (A) 87 %; RBC 4.79 m/uL (3.80-5.40); RDW 12.3 % (11.5-15.5); WBC 8.9 k/uL (3.8-10.6); WBC (Perox) 9.48
[2016-04-29] MEDS: methylPREDNISolone SOD SUCCI 40 MG/ML 1 ML VIAL IV SCH ×2 (08:05→20:02)
[2016-04-29] MEDS: ASPIRIN 81 MG CHEW PO SCH (08:07)
[2016-04-29] MEDS: AZITHROMYCIN 250 MG TAB PO SCH (08:07)
[2016-04-29] MEDS: MAGNESIUM OXIDE 250 MG TAB PO SCH (08:07)
[2016-04-29] MEDS: FUROSEMIDE 20 MG TAB PO SCH ×2 (08:07→15:40)
[2016-04-29] MEDS: ZINC GLUCONATE 50 MG TAB PO SCH (08:07)
[2016-04-29] MEDS: IPRATROPIUM-ALBUTEROL 3 ML NEB INHALATION SCH ×4 (08:23→18:58)
[2016-04-29 08:29] LABS: ALT 135 U/L (9-52); AST 41 U/L (14-36); Alkaline Phosphatase 91 U/L (38-126); Blood Urea Nitrogen 25 mg/dL (7-17); Chloride 94 mmol/L (98-107); Glucose 156 mg/dL (74-99); Non-African American GFR(MDRD) >60 (>60 ml/min/1.73 sqM); Potassium 4.4 mmol/L (3.5-5.1); Sodium 144 mmol/L (137-145); Total Bilirubin 0.5 mg/dL (0.2-1.3); Total Protein 6.3 g/dL (6.3-8.2)
[2016-04-29 08:35] LABS: Anion Gap 12 mmol/L; Carbon Dioxide 38 mmol/L (22-30)
[2016-04-29] MEDS: MEMANTINE 10 MG TAB PO SCH ×2 (09:21→20:02)
--- NOTE | 2016-04-29 12:06 | P.PN ---
Subjective Principal diagnosis: Change in mental status. 84-year-old female with history of COPD is admitted to the hospital with acute change in mental status. Patient initially was noted to have some changes in the interstitium. Patient was triaged to the [facility] where she currently resides. During my examination the ER on the day of admission patient was not able to answer any questions. Patient was noted to be wheezing. A CT angiogram was done to rule out PE which was noted to have some pulmonary fibrosis and no signs of pneumonia. Today patient is more arousable states her her breathing is significantly better. Is able to answer questions more appropriately. Denies having any fevers, chills, nausea, vomiting. 04/24/16 Is awake, answers questions. Cough is reported. No fevers, chills, change in bowel habits are reported. Spoke to the daughter in detail, her baseline is that she has dementia, answers some questions appropriately. 04/25/2016. Patient's daughter was at bedside. Patient was having a significant amount of cough however was able to eat her entire meal. Patient has a lot of upper respiratory issues however she is not able to cough appropriately to bring her sputum. Patient was seen on 04/26/2016 04/27/2016 On 04/26/2016 patient continued to have a cough there was some difficulty with swallowing. A swallow eval was obtained. On 04/27/2016 patient stated to have improved continues to have a cough however is weak and has been nonproductive. However her breathing has significant improvement. 04/28/2016 Patient states to be improved significantly. Continue weak cough. Denies having any fevers, chills, nausea, vomiting. Currently on 2 L of supplement oxygen. No other overnight events reported by the staff. 04/29/2016 Patient states to improved significantly. Minimal oral secretions are reported. No fevers, chills, nausea, vomiting. Objective - Vital Signs Vital signs: Vital Signs Temp 97.2 F L 04/29/16 07:00 Pulse 76 04/29/16 11:51 Resp 16 04/29/16 11:45 BP 151/65 04/29/16 07:00 Pulse Ox 95 04/29/16 07:00 Intake & Output 04/28/16 04/29/16 04/29/16 18:59 06:59 18:59 Intake Total 300 Balance 300 Weight 78 kg 76 kg Intake: Oral 300 Other: Voiding Method Diaper Diaper Diaper Incontinent Incontinent Incontinent # Voids 2 2 # Bowel Movements 1 1 - Exam Gen. appearance alert oriented 3 in no distress Lungs good air movement no wheezing. Patient is doing well today. Heart regular rate and rhythm no murmurs appreciated Abdomen is soft nontender no organomegaly Lower extremities trace edema appreciated Neurologically is moving all 4 ext. cranial nerves 2-12 grossly intact - Labs CBC & Chem 7: 04/29/16 07:35 04/29/16 07:35 Labs: Abnormal Lab Results - Last 24 Hours (Table) 04/29/16 04/29/16 Range/Units 07:35 07:35 Neutrophils # 7.8 H (1.3-7.7) k/uL Lymphocytes # 0.7 L (1.0-4.8) k/uL Chloride 94 L (98-107) mmol/L Carbon Dioxide 38 H (22-30) mmol/L BUN 25 H (7-17) mg/dL Creatinine 0.42 L (0.52-1.04) mg/dL Glucose 156 H (74-99) mg/dL AST 41 H (14-36) U/L ALT 135 H (9-52) U/L Albumin 3.4 L (3.5-5.0) g/dL Assessment and Plan Plan: #1 acute hypoxic respiratory failure secondary to an acute exacerbation of COPD likely from tracheobronchitis #2 HF PEF with a mild exacerbation as patient is improving on by mouth Lasix. #3 history of hypertension #4 history of dementia #5 previous history of a right hip fracture #6 metabolic alkalosis #7 debility 8. Acute metabolic encephalopathy that is improved Plan Continue IV Solu-Medrol 40 mg every 8 hours. Breathing treatments as scheduled.Code status will need to be addressed. Currently a Full code. Decrease steroids to Solu-Medrol 39 g every 12 hours. Significantly improved. We'll likely discharge the patient on taper steroids. Discharged in the next 24 hours to [facility]. =.
[2016-04-29] MEDS: SODIUM CHLORIDE 0.9% 1,000 ML IV SCH (17:08)
[2016-04-29] MEDS: MULTIVITAMINS, THERA 1 EACH TAB PO SCH (20:02)
[2016-04-29] MEDS: ASCORBIC ACID 500 MG TAB PO SCH (20:02)
[2016-04-30] MEDS: IPRATROPIUM-ALBUTEROL 3 ML NEB INHALATION SCH ×3 (08:50→15:48)
[2016-04-30] MEDS: FUROSEMIDE 20 MG TAB PO SCH ×2 (10:03→16:08)
[2016-04-30] MEDS: ASPIRIN 81 MG CHEW PO SCH (10:03)
[2016-04-30] MEDS: AZITHROMYCIN 250 MG TAB PO SCH (10:03)
[2016-04-30] MEDS: MAGNESIUM OXIDE 250 MG TAB PO SCH (10:03)
[2016-04-30] MEDS: methylPREDNISolone SOD SUCCI 40 MG/ML 1 ML VIAL IV SCH (10:03)
[2016-04-30] MEDS: MEMANTINE 10 MG TAB PO SCH (10:03)
[2016-04-30] MEDS: ZINC GLUCONATE 50 MG TAB PO SCH (10:04)
[2016-04-30 10:41] VITALS: RESP 18
--- NOTE | 2016-04-30 14:47 | P.DS ---
Providers Date of admission: 04/22/16 17:21 Expected date of discharge: 04/30/16 Attending physician: Yaw Pedroza MD [facility] Course: Change in mental status. 84-year-old female with history of COPD is admitted to the hospital with acute change in mental status. Patient initially was noted to have some changes in the interstitium. Patient [facility]. During my examination the ER on the day of admission patient was not able to answer any questions. Patient was noted to be wheezing. A CT angiogram was done to rule out PE which was noted to have some pulmonary fibrosis and no signs of pneumonia. Today patient is more arousable states her her breathing is significantly better. Is able to answer questions more appropriately. Denies having any fevers, chills, nausea, vomiting. 04/24/16 Is awake, answers questions. Cough is reported. No fevers, chills, change in bowel habits are reported. Spoke to the daughter in detail, her baseline is that she has dementia, answers some questions appropriately. 04/25/2016. Patient's daughter was at bedside. Patient was having a significant amount of cough however was able to eat her entire meal. Patient has a lot of upper respiratory issues however she is not able to cough appropriately to bring her sputum. Patient was seen on 04/26/2016 04/27/2016 On 04/26/2016 patient continued to have a cough there was some difficulty with swallowing. A swallow eval was obtained. On 04/27/2016 patient stated to have improved continues to have a cough however is weak and has been nonproductive. However her breathing has significant improvement. 04/28/2016 Patient states to be improved significantly. Continue weak cough. Denies having any fevers, chills, nausea, vomiting. Currently on 2 L of supplement oxygen. No other overnight events reported by the staff. 04/29/2016 Patient states to improved significantly. Minimal oral secretions are reported. No fevers, chills, nausea, vomiting. - Exam Gen. appearance alert oriented 3 in no distress Lungs good air movement no wheezing. Patient is doing well today. Heart regular rate and rhythm no murmurs appreciated Abdomen is soft nontender no organomegaly Lower extremities trace edema appreciated Neurologically is moving all 4 ext. cranial nerves 2-12 grossly intact Assessment and Plan Plan: #1 acute hypoxic respiratory failure secondary to an acute exacerbation of COPD likely from tracheobronchitis #2 HF pEF with a mild exacerbation as patient is improving on by mouth Lasix. #3 history of hypertension #4 history of dementia #5 previous history of a right hip fracture #6 metabolic alkalosis #7 debility 8. Acute metabolic encephalopathy that is improved. Patient will be discharged on a prolonged taper of steroids. To continue Ceftin for the next 7 days. Patient is to have scheduled breathing treatments through the day. Patient is encouraged to cough. Patient is ideally weaker has a weak cough hence required a prolonged hospitalization for treatment of tracheo bronchitis. Patient Condition at Discharge: Stable Plan - Discharge Summary New Discharge Prescriptions: Budesonide-Formot 160-4.5 Mcg [Symbicort 160-4.5 Mcg Inhaler] 2 puff INHALATION BID #1 inhaler Cefuroxime Axetil [Ceftin] 500 mg PO BID #10 tab predniSONE 10 mg PO DIRECTED #30 tab Discharge Medication List Aspirin 81 mg PO DAILY #1 chew 03/17/14 [Rx] Memantine [Namenda] 10 mg PO BID 04/10/15 [History] Acetaminophen Tab [Tylenol] 650 mg PO Q4H PRN 04/22/16 [History] Ascorbic Acid [Vitamin C] 500 mg PO HS 04/22/16 [History] Biotin 250 mg PO DAILY 04/22/16 [History] Bisacodyl 10 mg RECTAL DAILY PRN 04/22/16 [History] Dermaseptin Ointment 1 applic TOPICAL TID 04/22/16 [History] Magnesium Oxide [Mag-Ox] 250 mg PO DAILY 04/22/16 [History] Multivitamins, Thera [Multivitamin] 1 tab PO HS 04/22/16 [History] Rawlings-3 Fatty Acids/Fish Oil [Fish Oil 1,000 mg Softgel] 1 cap PO HS 04/22/16 [ History] Ubidecarenone [Co Q-10] 200 mg PO DAILY 04/22/16 [History] Zinc 50 mg PO DAILY 04/22/16 [History] guaiFENesin-DM 100-10MG/5ML [Robitussin DM] 10 ml PO Q6H PRN 04/22/16 [History] Budesonide-Formot 160-4.5 Mcg [Symbicort 160-4.5 Mcg Inhaler] 2 puff INHALATION BID #1 inhaler 04/30/16 [Rx] Cefuroxime Axetil [Ceftin] 500 mg PO BID #10 tab 04/30/16 [Rx] Furosemide [Lasix] 20 mg PO BID@0900,1600 tab 04/30/16 [Rx] Ipratropium-Albuterol Nebulize [Duoneb 0.5 mg-3 mg/3 ml Soln] 3 ml INHALATION Q4H PRN #0 ampul.neb 04/30/16 [Rx] Ipratropium-Albuterol Nebulize [Duoneb 0.5 mg-3 mg/3 ml Soln] 3 ml INHALATION RT -QID ampul.neb 04/30/16 [Rx] predniSONE 10 mg PO DIRECTED #30 tab 04/30/16 [Rx] Follow up Appointment(s)/Referral(s): Milton Cheung MD [Primary Care Provider] - 3 Days Patient Instructions/Handouts: Heart Failure (DC), COPD (Chronic Obstructive Pulmonary Disease) (DC) Activity/Diet/Wound Care/Special Instructions: [facility] Cardiac diet/pured, honey thickened/strict aspiration precautions. CBC, BMP in 3 days Discharge Disposition: TRANSFER TO SNF/ECF
[2016-04-30 17:05] VITALS: BP 125/58; PULSE 98; TEMP 97.3
[2016-04-30] MEDS: SODIUM CHLORIDE 0.9% 1,000 ML IV SCH (18:30)
== END 2016-04-30 19:50 | DRG 190 ==
LOC: EC 12:22 → 5MS5E 17:21 → 4MS4W 17:39
PROVIDERS: ADMIT Internal Medicine; ATTEND Internal Medicine
DX: J44.0 Chronic obstructive pulmonary disease with (acute) lower respiratory infection (principal); G93.41 Metabolic encephalopathy; J96.01 Acute respiratory failure with hypoxia; E87.3 Alkalosis; I50.32 Chronic diastolic (congestive) heart failure; I11.0 Hypertensive heart disease with heart failure; J44.1 Chronic obstructive pulmonary disease with (acute) exacerbation; F03.90 Unspecified dementia, unspecified severity, without behavioral disturbance, psychotic disturbance, mood disturbance, and anxiety; G20 Parkinson's disease; J84.10 Pulmonary fibrosis, unspecified; J20.9 Acute bronchitis, unspecified; Z79.82 Long term (current) use of aspirin; Z87.891 Personal history of nicotine dependence; Z79.899 Other long term (current) drug therapy
CPT/HCPCS: 36415; 71020; 71275; 80053; 81003; 82550; 82553; 83735; 83880; 84484; 85025; 85610; 85730; 87077; 87086; 87186; 93005; 94640; 94760; 96374; 99291

== ENCOUNTER 2016-05-01 03:44 | Inpatient (IN) | payer MEDICARE, OTHER ==
[2016-05-01] MEDS ORDERED: IPRATROPIUM-ALBUTEROL 3 ML NEB INHALATION STA (03:46)
--- NOTE | 2016-05-01 03:49 | ED ---
General Adult HPI - General Stated complaint: ANGELITA Time Seen by Provider: 05/01/16 03:46 Source: patient, EMS, RN notes reviewed Mode of arrival: EMS Limitations: physical limitation - History of Present Illness Initial comments: Patient is a pleasant 85-year-old female presenting to the emergency department complaining of difficulty in breathing. Patient is on CPAP and is a poor historian. Patient amiss to having problems breathing. Patient was reportedly recently just discharged from the hospital with congestive heart failure and COPD. No leg pain or leg swelling. - Related Data Home Medications Medication Instructions Recorded Confirmed Memantine [Namenda] 10 mg PO BID 04/10/15 04/22/16 Acetaminophen Tab [Tylenol] 650 mg PO Q4H PRN 04/22/16 04/22/16 Ascorbic Acid [Vitamin C] 500 mg PO HS 04/22/16 04/22/16 Biotin 250 mg PO DAILY 04/22/16 04/22/16 Bisacodyl 10 mg RECTAL DAILY PRN 04/22/16 04/22/16 Dermaseptin Ointment 1 applic TOPICAL TID 04/22/16 04/22/16 Magnesium Oxide [Mag-Ox] 250 mg PO DAILY 04/22/16 04/22/16 Multivitamins, Thera [Multivitamin] 1 tab PO HS 04/22/16 04/22/16 [place]-3 Fatty Acids/Fish Oil [Fish 1 cap PO HS 04/22/16 04/22/16 Oil 1,000 mg Softgel] Ubidecarenone [Co Q-10] 200 mg PO DAILY 04/22/16 04/22/16 Zinc 50 mg PO DAILY 04/22/16 04/22/16 guaiFENesin-DM 100-10MG/5ML 10 ml PO Q6H PRN 04/22/16 04/22/16 [Robitussin DM] Previous Rx's Medication Instructions Recorded Aspirin 81 mg PO DAILY #1 chew 03/17/14 Budesonide-Formot 160-4.5 Mcg 2 puff INHALATION BID #1 inhaler 04/30/16 [Symbicort 160-4.5 Mcg Inhaler] Cefuroxime Axetil [Ceftin] 500 mg PO BID #10 tab 04/30/16 Furosemide [Lasix] 20 mg PO BID@0900,1600 tab 04/30/16 Ipratropium-Albuterol Nebulize 3 ml INHALATION Q4H PRN #0 04/30/16 [Duoneb 0.5 mg-3 mg/3 ml Soln] ampul.neb Ipratropium-Albuterol Nebulize 3 ml INHALATION RT-QID ampul.neb 04/30/16 [Duoneb 0.5 mg-3 mg/3 ml Soln] predniSONE 10 mg PO DIRECTED #30 tab 04/30/16 Allergies Allergy/AdvReac Type Severity Reaction Status Date / Time No Known Allergies Allergy Verified 05/01/16 03:59 Review of Systems ROS Statement: Those systems with pertinent positive or pertinent negative responses have been documented in the HPI. ROS Other: All systems not noted in ROS Statement are negative. Constitutional: Denies: fever Eyes: Denies: eye pain ENT: Denies: ear pain Respiratory: Reports: dyspnea Cardiovascular: Denies: palpitations Endocrine: Reports: fatigue Gastrointestinal: Denies: abdominal pain Genitourinary: Denies: urgency Musculoskeletal: Denies: back pain Skin: Denies: rash Neurological: Denies: headache Past Medical History Past Medical History: Heart Failure, Dementia, Thyroid Disorder Additional Past Medical History / Comment(s): Parkinsons Disease History of Any Multi-Drug Resistant Organisms: None Reported Past Surgical History: Tonsillectomy Additional Past Surgical History / Comment(s): Right hip replacement Past Anesthesia/Blood Transfusion Reactions: No Reported Reaction Past Psychological History: No Psychological Hx Reported Smoking Status: Former smoker Past Alcohol Use History: None Reported Past Drug Use History: None Reported - Past Family History Mother Family Medical History: Diabetes Mellitus Father Family Medical History: No Reported History General Exam Limitations: physical limitation General appearance: alert, in distress Head exam: Present: atraumatic Eye exam: Present: normal appearance ENT exam: Present: normal oropharynx Neck exam: Present: normal inspection Respiratory exam: Present: respiratory distress, wheezes, rales, accessory muscle use Cardiovascular Exam: Present: regular rate, normal rhythm GI/Abdominal exam: Present: soft. Absent: tenderness Extremities exam: Present: normal inspection. Absent: pedal edema, calf tenderness Neurological exam: Present: alert Psychiatric exam: Present: normal affect, normal mood Skin exam: Absent: rash Course Vital Signs 05/01/16 05/01/16 05/01/16 03:50 03:51 04:05 Temperature 98.7 F Pulse Rate 74 78 81 Respiratory 24 Rate Blood Pressure 188/81 O2 Sat by Pulse 98 Oximetry EKG Findings - EKG Comments: EKG Findings:: Sinus rhythm at 78 with PACs in the pattern of bigeminy. Normal intervals. Normal axis. T-wave inversion in leads V3 through V6. Medical Decision Making - Medical Decision Making Patient reexamined and improved with BiPAP. Patient updated on results and plan. Case discussed with practitioner Jamilah, who will admit for Dr. giraldo, will admit for Dr. Cheung. - Lab Data Result diagrams: 05/01/16 03:53 05/01/16 03:53 Lab Results 05/01/16 05/01/16 05/01/16 Range/Units 03:53 03:53 03:53 WBC 16.7 H (3.8-10.6) k/uL RBC 4.83 (3.80-5.40) m/uL Hgb 15.0 (11.4-16.0) gm/dL Hct 45.2 (34.0-46.0) % MCV 93.5 (80.0-100.0) fL MCH 31.1 (25.0-35.0) pg MCHC 33.3 (31.0-37.0) g/dL RDW 12.2 (11.5-15.5) % Plt Count 219 (150-450) k/uL Neutrophils % 81 % Lymphocytes % 11 % Monocytes % 6 % Eosinophils % 0 % Basophils % 1 % Neutrophils # 13.6 H (1.3-7.7) k/uL Lymphocytes # 1.9 (1.0-4.8) k/uL Monocytes # 1.0 (0-1.0) k/uL Eosinophils # 0.0 (0-0.7) k/uL Basophils # 0.1 (0-0.2) k/uL PT (9.0-12.0) sec INR (<1.1) APTT (22.0-30.0) sec Sodium 139 (137-145) mmol/L Potassium 4.8 (3.5-5.1) mmol/L Chloride 95 L (98-107) mmol/L Carbon Dioxide 39 H (22-30) mmol/L Anion Gap 5 mmol/L BUN 25 H (7-17) mg/dL Creatinine 0.40 L (0.52-1.04) mg/dL Est GFR (MDRD) Af Amer >60 (>60 ml/min/1.73 sqM) Est GFR (MDRD) Non-Af >60 (>60 ml/min/1.73 sqM) Glucose 128 H (74-99) mg/dL Calcium 9.6 (8.4-10.2) mg/dL Total Bilirubin 0.8 (0.2-1.3) mg/dL AST 20 (14-36) U/L ALT 81 H (9-52) U/L Alkaline Phosphatase 90 (38-126) U/L Total Creatine Kinase <20 L (30-135) U/L CK-MB (CK-2) 0.4 (0.0-2.4) ng/mL CK-MB (CK-2) Rel Index 0.0 Troponin I 0.024 (0.000-0.034) ng/mL NT-Pro-B Natriuret Pep pg/mL Total Protein 6.1 L (6.3-8.2) g/dL Albumin 3.3 L (3.5-5.0) g/dL 05/01/16 05/01/16 Range/Units 03:53 03:53 WBC (3.8-10.6) k/uL RBC (3.80-5.40) m/uL Hgb (11.4-16.0) gm/dL Hct (34.0-46.0) % MCV (80.0-100.0) fL MCH (25.0-35.0) pg MCHC (31.0-37.0) g/dL RDW (11.5-15.5) % Plt Count (150-450) k/uL Neutrophils % % Lymphocytes % % Monocytes % % Eosinophils % % Basophils % % Neutrophils # (1.3-7.7) k/uL Lymphocytes # (1.0-4.8) k/uL Monocytes # (0-1.0) k/uL Eosinophils # (0-0.7) k/uL Basophils # (0-0.2) k/uL PT 10.5 (9.0-12.0) sec INR 1.0 (<1.1) APTT 19.9 L (22.0-30.0) sec Sodium (137-145) mmol/L Potassium (3.5-5.1) mmol/L Chloride (98-107) mmol/L Carbon Dioxide (22-30) mmol/L Anion Gap mmol/L BUN (7-17) mg/dL Creatinine (0.52-1.04) mg/dL Est GFR (MDRD) Af Amer (>60 ml/min/1.73 sqM) Est GFR (MDRD) Non-Af (>60 ml/min/1.73 sqM) Glucose (74-99) mg/dL Calcium (8.4-10.2) mg/dL Total Bilirubin (0.2-1.3) mg/dL AST (14-36) U/L ALT (9-52) U/L Alkaline Phosphatase (38-126) U/L Total Creatine Kinase (30-135) U/L CK-MB (CK-2) (0.0-2.4) ng/mL CK-MB (CK-2) Rel Index Troponin I (0.000-0.034) ng/mL NT-Pro-B Natriuret Pep 861 pg/mL Total Protein (6.3-8.2) g/dL Albumin (3.5-5.0) g/dL - Radiology Data Radiology results: image reviewed (X-ray shows mild left-sided effusion, increased from previous. mild pulmonary vascular congestion) Critical Care Time Critical Care Time: Yes Total Critical Care Time: 32 Disposition Clinical Impression: Acute exacerbation of chronic obstructive airways disease, Acute respiratory failure Disposition: ADMITTED IP TO THIS HOSP
[2016-05-01 04:19] LABS: Basophils # (A) 0.1 k/uL (0-0.2); Basophils % (A) 1 %; CH 31.3; CHCM 33.6; Eosinophils % (A) 0 %; HCT 45.2 % (34.0-46.0); HDW 2.37; Luc # (Auto) 0.08; Luc % (Auto) 1; Lymphocytes # (A) 1.9 k/uL (1.0-4.8); Lymphocytes % (A) 11 %; MCH 31.1 pg (25.0-35.0); MCHC 33.3 g/dL (31.0-37.0); MCV 93.5 fL (80.0-100.0); Mean Platelet Volume 7.2; Monocytes % (A) 6 %; Neutrophils # (A) 13.6 k/uL (1.3-7.7); Neutrophils % (A) 81 %; RBC 4.83 m/uL (3.80-5.40); RDW 12.2 % (11.5-15.5); WBC 16.7 k/uL (3.8-10.6); WBC (Perox) 16.71
[2016-05-01 04:37] LABS: Prothrombin Time 10.5 sec (9.0-12.0)
[2016-05-01 04:43] LABS: ALT 81 U/L (9-52); AST 20 U/L (14-36); Alkaline Phosphatase 90 U/L (38-126); Anion Gap 5 mmol/L; Blood Urea Nitrogen 25 mg/dL (7-17); Calcium 9.6 mg/dL (8.4-10.2); Carbon Dioxide 39 mmol/L (22-30); Chloride 95 mmol/L (98-107); Creatine Kinase <20 U/L (30-135); Glucose 128 mg/dL (74-99); Non-African American GFR(MDRD) >60 (>60 ml/min/1.73 sqM); Potassium 4.8 mmol/L (3.5-5.1); Sodium 139 mmol/L (137-145); Total Bilirubin 0.8 mg/dL (0.2-1.3); Total Protein 6.1 g/dL (6.3-8.2)
[2016-05-01 04:48] LABS: Partial Thromboplastin Time 19.9 sec (22.0-30.0)
[2016-05-01 04:56] LABS: Creatine Kinase MB 0.4 ng/mL (0.0-2.4); Troponin I 0.024 ng/mL (0.000-0.034)
--- NOTE | 2016-05-01 04:56 | XR ---
EXAMINATION TYPE: XR chest 1V portable DATE OF EXAM: 05/01/2016 4:10 AM COMPARISON: 04/27/2016 HISTORY: Difficulty in breathing TECHNIQUE: Single frontal view of the chest is obtained. FINDINGS: There is mild left-sided pleural effusion and left basilar lung infiltrates and atelectasis. There is mild pulmonary vascular congestion. There is mild cardiomegaly. The osseous structures are intact. IMPRESSION: 1. Mild left-sided pleural effusion and left basilar lung infiltrate and atelectasis. 2. There is mild pulmonary vascular congestion.
[2016-05-01] MEDS ORDERED: IPRATROPIUM-ALBUTEROL 3 ML NEB INHALATION PRN (05:14)
[2016-05-01] MEDS: IPRATROPIUM-ALBUTEROL 3 ML NEB INHALATION SCH ×4 (07:58→19:20)
[2016-05-01] MEDS: methylPREDNISolone SOD SUCCI 125 MG/2 ML VIAL IV SCH ×3 (08:12→17:29)
[2016-05-01 08:19] LABS: Glucose,Whole Blood 170 mg/dL (75-99)
[2016-05-01] MEDS: INSULIN LISPRO (humaLOG) 300 UNIT/3 ML VIAL SQ SCH ×4 (08:21→22:20)
[2016-05-01] MEDS ORDERED: FUROSEMIDE 10 MG/ML 4 ML VIAL IV STA (10:24)
--- NOTE | 2016-05-01 10:51 | XR ---
EXAMINATION TYPE: XR chest 1V portable DATE OF EXAM: 05/01/2016 10:43 AM HISTORY: Shortness of breath. COMPARISON: 05/01/2016 TECHNIQUE: Single view of the chest is submitted. FINDINGS: Demonstrated are scattered senescent parenchymal change. There is no evidence for focal infiltrate. The heart is stable. Hilar and mediastinal structures are within normal limits. Degenerative changes are seen of the dorsal spine. IMPRESSION: 1. Chronic changes without evidence for acute pulmonary disease.
--- NOTE | 2016-05-01 11:06 | P.CNPUL ---
History of Present Illness Consult date: 05/01/16 Requesting physician: [place] Reason for consult: dyspnea Chief complaint: Shortness of breath History of present illness: This is an 85-year-old female who is a very poor historian, known history of dementia, patient was recently inpatient for shortness of breath which was felt to be related to COPD and congestive heart failure. She was discharged only yesterday, and she was readmitted similar symptoms. The patient herself is a poor historian, and she cannot volunteer any information. Looking at the records and the chart from the ER, patient was brought in with difficulty in breathing, she was on CPAP and her chest x-ray showed evidence of a left lower lobe atelectasis and possible left pleural effusion. I repeated the chest x- ray upon my evaluation, and the left lower lobe atelectasis has completely resolved, and there is no evidence of pleural effusion. Actually there is no evidence of active disease noted on the follow-up chest x-ray this morning. Patient remains on BiPAP, and she does not seem to be in any form of distress. Looking back at her last admission, the patient was just discharged on 04/30/2016 , and her admission diagnoses was COPD and change in mental status. We were not consulted on her last admission. Her other medical diagnoses included debility, metabolic encephalopathy, dementia, and hypertension. Review of Systems Review of systems cannot be obtained, patient is a very poor historian. Past Medical History Past Medical History: Heart Failure, COPD, Dementia, Hypertension, Musculoskeletal Disorder, Neurologic Disorder, Thyroid Disorder Additional Past Medical History / Comment(s): Pt recently admitted to [facility] On 04/22/16 with acute hypoxic respiratory failure, acute exacerbation of COPD likely from tracheobronchitis, CHF, acute metabolic encephalopathy. Other hx: Parkinsons Disease, hypothyroidism. History of Any Multi-Drug Resistant Organisms: None Reported Past Surgical History: Tonsillectomy Additional Past Surgical History / Comment(s): Right hip hemiarthroplasty. Past Anesthesia/Blood Transfusion Reactions: No Reported Reaction Past Psychological History: No Psychological Hx Reported Additional Psychological History / Comment(s): Pt resides at [facility]. She is nonambulatory. She is a mechanical lift to chair. She needs assist with all ADLs. Smoking Status: Former smoker Past Alcohol Use History: None Reported Past Drug Use History: None Reported - Past Family History Mother Family Medical History: Diabetes Mellitus Father Family Medical History: No Reported History Medications and Allergies Home Medications Medication Instructions Recorded Confirmed Type Memantine [Namenda] 10 mg PO BID 04/10/15 05/01/16 History Acetaminophen Tab [Tylenol] 650 mg PO Q4H PRN 04/22/16 05/01/16 History Ascorbic Acid [Vitamin C] 500 mg PO HS 04/22/16 05/01/16 History Biotin 250 mg PO DAILY 04/22/16 05/01/16 History Dermaseptin Ointment 1 applic TOPICAL TID 04/22/16 05/01/16 History Magnesium Oxide [Mag-Ox] 250 mg PO DAILY 04/22/16 05/01/16 History Multivitamins, Thera [Multivitamin] 1 tab PO HS 04/22/16 05/01/16 History [place]-3 Fatty Acids/Fish Oil [Fish 1 cap PO HS 04/22/16 05/01/16 History Oil 1,000 mg Softgel] Ubidecarenone [Co Q-10] 200 mg PO DAILY 04/22/16 05/01/16 History Zinc 50 mg PO DAILY 04/22/16 05/01/16 History guaiFENesin-DM 100-10MG/5ML 10 ml PO Q6H PRN 04/22/16 05/01/16 History [Robitussin DM] Budesonide-Formot 160-4.5 Mcg 2 puff INHALATION RT-BID 05/01/16 05/01/16 History [Symbicort 160-4.5 Mcg Inhaler] Ipratropium-Albuterol Nebulize 3 ml INHALATION RT-Q4H PRN 05/01/16 05/01/16 History [Duoneb 0.5 mg-3 mg/3 ml Soln] Ipratropium-Albuterol Nebulize 3 ml INHALATION RT-TID 05/01/16 05/01/16 History [Duoneb 0.5 mg-3 mg/3 ml Soln] predniSONE See Taper PO DAILY 05/01/16 05/01/16 History Allergies Allergy/AdvReac Type Severity Reaction Status Date / Time No Known Allergies Allergy Verified 05/01/16 03:59 Physical Exam Vitals: Vital Signs Temp Pulse Pulse Resp BP BP Pulse Ox 05/01/16 08:13 82 05/01/16 07:59 80 05/01/16 07:04 97.7 F 76 20 156/72 97 05/01/16 06:24 97.0 F L 72 19 136/92 99 05/01/16 05:21 71 18 147/66 96 Intake and Output 04/30/16 05/01/16 05/01/16 22:59 06:59 14:59 Intake Total 0 Balance 0 Intake: Oral 0 Physical Exam: Revealed an 85-year-old female in no distress on BiPAP. HEENT:[Neck is supple.] [No neck masses.] [No thyromegaly.] [No JVD.] Chest: [Diminished breath sounds at the bases, no crackles, no rhonchi, no wheezes.] Cardiac Exam: [Normal S1 and S2, no S3 gallop, no murmur.] Abdomen: [Soft, nontender, no megaly, no rebound, no guarding, normal bowel sounds.] Extremities: [No clubbing, no edema, no cyanosis.] Neurological Exam: Confused otherwise no focal neurologic deficit. Results - Laboratory Findings CBC and BMP: 05/01/16 03:53 05/01/16 03:53 PT/INR, D-dimer PT 10.5 sec (9.0-12.0) 05/01/16 03:53 INR 1.0 (<1.1) 05/01/16 03:53 Abnormal lab findings: Abnormal Labs 05/01/16 08:16 POC Glucose (mg/dL) 170 H - Diagnostic Findings Chest x-ray: image reviewed (2 x-rays were reviewed, the follow-up chest x-ray done at the time of my evaluation showed complete resolution of the left lower lobe atelectasis, and no evidence of pleural effusion.) Assessment and Plan Plan: Impression: Chronic hypoxic respiratory failure secondary to underlying COPD. Acute left lower lobe atelectasis resolved once the patient was placed on BiPAP. And follow-up chest x-ray this morning is reassuring. There is no evidence of pneumonia. History of multiple comorbidities including diastolic heart failure, hypertension, dementia, history of right hip fracture, and history of medical debility. Recommendation: Continue present treatment plan, continue bronchodilators, diuretics, incentive spirometry, updrafts, and we'll continue to follow. Time with Patient: Greater than 30
[2016-05-01 12:11] LABS: Glucose,Whole Blood 140 mg/dL (75-99)
[2016-05-01 13:54] LABS: ABG PCO2 50 mmHg (35-45); ABG PH 7.48 (7.35-7.45)
[2016-05-01 13:55] LABS: ABG Base Excess 12.1 mmol/L; ABG HCO3 37 mmol/L (21-25); ABG PO2 78 mmHg (83-108); ABG TCO2 38 mmol/L (19-24)
--- NOTE | 2016-05-01 14:52 | P.HPIM ---
History of Present Illness H&P Date: 05/01/16 Chief Complaint: Difficulty in breathing 85-year-old female was recently discharged from the hospital after being treated for an acute exacerbation of heart failure comes in to the hospital from medical [place] after patient was noted to be more lethargic in the middle of the night. Patient was hospitalized for a week for an acute bronchitis causing acute exacerbation of COPD. Patient had a weak cough hence required prolonged hospitalization at that time. Patient required minimal amounts of oxygen for comfort. Patient was however discharge on 2 L supplemental oxygen. On the day of discharge patient was able to communicate was able to breathe normally and doing well. However 5-6 hours upon discharge she apparently got more lethargic unsure if patient got hypoxic if oxygen came off her. Patient was started on BiPAP this morning the selective care unit and improved rapidly. Patient continues to have a poor cough even at this time intermittently Patient also noted to be breathing very shallow. Review of Systems All systems: negative (Noted in HPI) Past Medical History Past Medical History: Heart Failure, COPD, Dementia, Hypertension, Musculoskeletal Disorder, Neurologic Disorder, Thyroid Disorder Additional Past Medical History / Comment(s): Pt recently admitted to [facility] On 04/22/16 with acute hypoxic respiratory failure, acute exacerbation of COPD likely from tracheobronchitis, CHF, acute metabolic encephalopathy. Other hx: Parkinsons Disease, hypothyroidism. History of Any Multi-Drug Resistant Organisms: None Reported Past Surgical History: Tonsillectomy Additional Past Surgical History / Comment(s): Right hip hemiarthroplasty. Past Anesthesia/Blood Transfusion Reactions: No Reported Reaction Past Psychological History: No Psychological Hx Reported Additional Psychological History / Comment(s): Pt resides at [facility]. She is nonambulatory. She is a mechanical lift to chair. She needs assist with all ADLs. Smoking Status: Former smoker Past Alcohol Use History: None Reported Past Drug Use History: None Reported - Past Family History Mother Family Medical History: Diabetes Mellitus Father Family Medical History: No Reported History Medications and Allergies Home Medications Medication Instructions Recorded Confirmed Type Memantine [Namenda] 10 mg PO BID 04/10/15 05/01/16 History Acetaminophen Tab [Tylenol] 650 mg PO Q4H PRN 04/22/16 05/01/16 History Ascorbic Acid [Vitamin C] 500 mg PO HS 04/22/16 05/01/16 History Biotin 250 mg PO DAILY 04/22/16 05/01/16 History Dermaseptin Ointment 1 applic TOPICAL TID 04/22/16 05/01/16 History Magnesium Oxide [Mag-Ox] 250 mg PO DAILY 04/22/16 05/01/16 History Multivitamins, Thera [Multivitamin] 1 tab PO HS 04/22/16 05/01/16 History [place]-3 Fatty Acids/Fish Oil [Fish 1 cap PO HS 04/22/16 05/01/16 History Oil 1,000 mg Softgel] Ubidecarenone [Co Q-10] 200 mg PO DAILY 04/22/16 05/01/16 History Zinc 50 mg PO DAILY 04/22/16 05/01/16 History guaiFENesin-DM 100-10MG/5ML 10 ml PO Q6H PRN 04/22/16 05/01/16 History [Robitussin DM] Budesonide-Formot 160-4.5 Mcg 2 puff INHALATION RT-BID 05/01/16 05/01/16 History [Symbicort 160-4.5 Mcg Inhaler] Ipratropium-Albuterol Nebulize 3 ml INHALATION RT-Q4H PRN 05/01/16 05/01/16 History [Duoneb 0.5 mg-3 mg/3 ml Soln] Ipratropium-Albuterol Nebulize 3 ml INHALATION RT-TID 05/01/16 05/01/16 History [Duoneb 0.5 mg-3 mg/3 ml Soln] predniSONE See Taper PO DAILY 05/01/16 05/01/16 History Allergies Allergy/AdvReac Type Severity Reaction Status Date / Time No Known Allergies Allergy Verified 05/01/16 03:59 Physical Exam Vitals: Vital Signs Temp Pulse Pulse Resp BP BP Pulse Ox 05/01/16 12:05 78 05/01/16 12:00 73 18 136/62 99 05/01/16 08:13 82 05/01/16 08:00 96.2 F L 77 18 136/65 91 L 05/01/16 07:59 80 05/01/16 07:04 97.7 F 76 20 156/72 97 05/01/16 06:24 97.0 F L 72 19 136/92 99 05/01/16 05:21 71 18 147/66 96 Intake and Output 04/30/16 05/01/16 05/01/16 22:59 06:59 14:59 Intake Total 90 Balance 90 Intake: Oral 90 Other: Weight 68.5 kg Patient Weight 05/02/16 06:59 Weight 68.5 kg In appearance alert oriented 3. Lungs trace expiratory wheeze noted transited from the hypopharynx appears to be in respiratory distress very poor inspiratory effort Heart regular rate and rhythm no murmurs appreciable Abdomen soft nontender organomegaly Lower activities no edema appreciated Neurologically moves all 4 extremities. Results CBC & Chem 7: 05/01/16 03:53 05/01/16 03:53 Labs: Abnormal Lab Results - Last 24 Hours (Table) 05/01/16 05/01/16 05/01/16 Range/Units 08:16 11:54 13:36 ABG pH (7.35-7.45) ABG pCO2 (35-45) mmHg ABG pO2 (83-108) mmHg ABG HCO3 (21-25) mmol/L ABG Total CO2 (19-24) mmol/L POC Glucose (mg/dL) 170 H 140 H (75-99) mg/dL Plasma Lactic Acid [place] 2.7 H* (0.7-2.0) mmol/L 05/01/16 Range/Units 13:40 ABG pH 7.48 H (7.35-7.45) ABG pCO2 50 H (35-45) mmHg ABG pO2 78 L (83-108) mmHg ABG HCO3 37 H (21-25) mmol/L ABG Total CO2 38 H (19-24) mmol/L POC Glucose (mg/dL) (75-99) mg/dL Plasma Lactic Acid [place] (0.7-2.0) mmol/L Thrombosis Risk Factor Assmnt - Choose All That Apply Any of the Below Risk Factors Present?: Yes Each Factor Represents 1 point: Abnormal pulmonary function (COPD), Heart failure (<1month), Medical pt on bed rest, Obesity (BMI >25) Other Risk Factors: Yes Each Risk Factor Represents 3 Points: Age 75 years or older Other congenital or acquired thrombophilia - If yes, enter type in comment: No Thrombosis Risk Factor Assessment Total Risk Factor Score: 7 Thrombosis Risk Factor Assessment Level: High Risk Assessment and Plan Plan: Acute on chronic hypoxic respiratory failure #2 chronic hypercapnic respiratory failure #3 history of COPD with an acute exacerbation #4 dementia #5 hypertension #6 debility currently a resident of [facility] Plan Continue ongoing care. An ABG will be done. Patient appears to be slightly anxious. Place the patient back on BiPAP at this time. Continue antibiotic therapy. Left lower lobe finding is likely atelectasis. Patient was recently treated for a similar exacerbation was discharged on a prednisone taper and on Ceftin. Patient however had recurrence this is on all likelihood secondary to a weak cough and decreased respiratory drive be central. This could be an aspect of dementia as well. This case was discussed with the terminal makeup operator on the family was also at bedside. Continue ongoing care. Patient does have a history of dementia and as patient is bedridden prognosis does get worse over the next 6 months. DVT prophylaxis with subcu heparin 5000 units every 12 hours and
[2016-05-01 16:36] LABS: Glucose,Whole Blood 208 mg/dL (75-99)
[2016-05-01] MEDS: SYMBICORT 160-4.5 MCG INHALER INHALATION SCH (19:20)
[2016-05-01 20:50] LABS: Glucose,Whole Blood 111 mg/dL (75-99)
[2016-05-01] MEDS: HEPARIN SODIUM,PORCINE 5,000 UNIT/ML 1 ML VIAL SQ SCH (21:30)
[2016-05-01] MEDS: CEFUROXIME 250 MG TAB PO SCH (22:19)
[2016-05-02 05:57] LABS: Glucose,Whole Blood 191 mg/dL (75-99)
[2016-05-02] MEDS: methylPREDNISolone SOD SUCCI 125 MG/2 ML VIAL IV SCH ×4 (06:22→17:02)
[2016-05-02] MEDS: SYMBICORT 160-4.5 MCG INHALER INHALATION SCH ×2 (09:13→20:51)
[2016-05-02] MEDS: IPRATROPIUM-ALBUTEROL 3 ML NEB INHALATION SCH ×4 (09:13→20:51)
--- NOTE | 2016-05-02 09:23 | FL ---
EXAMINATION TYPE: FL sniff test without CXR DATE OF EXAM: 05/02/2016 8:28 AM COMPARISON: Radiograph 05/01/2016 HISTORY: 85-year-old female with shortness of breath. TECHNIQUE: Real time fluoroscopy of the diaphragm during normal respiration, deep breathing, and snif fing maneuver. FINDINGS: There is normal, appropriate movement of the diaphragm during all forms of breathing. There is very m inimal elevation of the left hemidiaphragm. IMPRESSION: Negative exam for diaphragmatic paralysis.
[2016-05-02] MEDS: INSULIN LISPRO (humaLOG) 300 UNIT/3 ML VIAL SQ SCH ×4 (09:38→21:37)
[2016-05-02] MEDS: HEPARIN SODIUM,PORCINE 5,000 UNIT/ML 1 ML VIAL SQ SCH ×2 (09:40→21:36)
[2016-05-02] MEDS ORDERED: FUROSEMIDE 10 MG/ML 4 ML VIAL IV STA (10:26)
[2016-05-02] MEDS: CEFUROXIME 250 MG TAB PO SCH (10:27)
[2016-05-02] MEDS: FUROSEMIDE 20 MG TAB PO SCH ×2 (10:27→16:08)
--- NOTE | 2016-05-02 12:25 | P.PN ---
Subjective Principal diagnosis: Chronic hypoxic respiratory failure This is an 85-year-old female who is a very poor historian, known history of dementia, patient was recently inpatient for shortness of breath which was felt to be related to COPD and congestive heart failure. She was discharged only yesterday, and she was readmitted similar symptoms. The patient herself is a poor historian, and she cannot volunteer any information. Looking at the records and the chart from the ER, patient was brought in with difficulty in breathing, she was on CPAP and her chest x-ray showed evidence of a left lower lobe atelectasis and possible left pleural effusion. I repeated the chest x- ray upon my evaluation, and the left lower lobe atelectasis has completely resolved, and there is no evidence of pleural effusion. Actually there is no evidence of active disease noted on the follow-up chest x-ray this morning. Patient remains on BiPAP, and she does not seem to be in any form of distress. Looking back at her last admission, the patient was just discharged on 04/30/2016 , and her admission diagnoses was COPD and change in mental status. We were not consulted on her last admission. Her other medical diagnoses included debility, metabolic encephalopathy, dementia, and hypertension. Patient was reevaluated today on 05/02/2016, I reviewed her sniff test which came back negative, no evidence of paralysis of hemidiaphragm. Going back to her old x-rays, there seems to be a chronic slight elevation of the left hemidiaphragm, but clearly is not paralyzed based on the sniff test. Her ABG today reflected a picture of metabolic alkalosis with compensatory hypercapnia. Her pO2 was actually 78 and this was on 32% FiO2. Her alkalosis is most likely contraction type of alkalosis, and will likely improve with holding diuretics or hydration slowly, and if we need to use any diuretics, I prefer that we use Diamox. Looking back at her previous history, patient clearly has chronic medical debility, deconditioning, Parkinson's disease, and possible intermittent episodes of aspiration. Patient obviously is having difficulty swallowing, and it may very well be related to her underlying Parkinson's disease. She also has a picture of spastic dysphonia. I believe all of these are factors contributing to her shortness of breath, not to mention the fact that the patient may have some underlying COPD since she had previous remote smoking history. It will be impossible to have a PFT done on this patient, but is not a bad idea to consider ordering a bedside PFT. Objective - Vital Signs Vital signs: Vital Signs Temp 96.9 F L 05/02/16 08:00 Pulse 86 05/02/16 09:28 Resp 20 05/02/16 08:00 BP 126/75 05/02/16 08:00 Pulse Ox 91 L 05/02/16 08:00 Intake & Output 05/01/16 05/02/16 05/02/16 18:59 06:59 18:59 Intake Total 440 480 Output Total 3 Balance 440 477 Weight 68.5 kg 71.5 kg Intake: IV 300 .9 saline 300 Oral 140 480 Output: Stool 3 Other: Voiding Method Diaper Diaper # Voids 1 1 # Bowel Movements 1 1 - Exam Physical Exam: Revealed an 85-year-old female in no distress on BiPAP. HEENT:[Neck is supple.] [No neck masses.] [No thyromegaly.] [No JVD.] Chest: [Diminished breath sounds at the bases, no crackles, no rhonchi, no wheezes.] Cardiac Exam: [Normal S1 and S2, no S3 gallop, no murmur.] Abdomen: [Soft, nontender, no megaly, no rebound, no guarding, normal bowel sounds.] Extremities: [No clubbing, no edema, no cyanosis.] Neurological Exam: Confused otherwise no focal neurologic deficit. - Labs CBC & Chem 7: 05/01/16 03:53 05/01/16 03:53 Labs: Abnormal Lab Results - Last 24 Hours (Table) 05/01/16 05/01/16 05/01/16 Range/Units 13:36 13:40 16:29 ABG pH 7.48 H (7.35-7.45) ABG pCO2 50 H (35-45) mmHg ABG pO2 78 L (83-108) mmHg ABG HCO3 37 H (21-25) mmol/L ABG Total CO2 38 H (19-24) mmol/L POC Glucose (mg/dL) 208 H (75-99) mg/dL Plasma Lactic Acid Saran 2.7 H* (0.7-2.0) mmol/L 05/01/16 05/01/16 05/02/16 Range/Units 17:21 20:45 05:55 ABG pH (7.35-7.45) ABG pCO2 (35-45) mmHg ABG pO2 (83-108) mmHg ABG HCO3 (21-25) mmol/L ABG Total CO2 (19-24) mmol/L POC Glucose (mg/dL) 111 H 191 H (75-99) mg/dL Plasma Lactic Acid Saran 2.2 H* (0.7-2.0) mmol/L Assessment and Plan Plan: Impression: Chronic hypoxic respiratory failure secondary to underlying COPD. Chronic shortness of breath, multifactorial, secondary to COPD, medical debility , deconditioning, Parkinson's disease, and possible intermittent episodes of aspiration. Recommendation: Continue present course of bronchodilators, hold on diuretics, patient developed apparently a picture of contraction metabolic alkalosis and she is developing compensatory hypercapnia. Sniff test was negative for hemidiaphragm paralysis, patient is being evaluated for swallow evaluation which is a good idea, patient may failed the swallow evaluation, and she will be placed on precautions. Patient may also have a component of diastolic heart failure. Acute left lower lobe atelectasis resolved once the patient was placed on BiPAP. And follow-up chest x-ray this morning is reassuring. There is no evidence of pneumonia. History of multiple comorbidities including diastolic heart failure, hypertension, dementia, history of right hip fracture, and history of medical debility. Recommendation: Continue present treatment plan, continue bronchodilators, if diuretics to be used, prefer that we use Diamox instead of Lasix. incentive spirometry, updrafts, and we'll continue to follow. Long-term prognosis remains very poor and guarded. Time with Patient: Less than 30
--- NOTE | 2016-05-02 14:49 | P.PN ---
Subjective 85-year-old female was recently discharged from the hospital after being treated for an acute exacerbation of heart failure comes in to the hospital from medical [facility] after patient was noted to be more lethargic in the middle of the night. Patient was hospitalized for a week for an acute bronchitis causing acute exacerbation of COPD. Patient had a weak cough hence required prolonged hospitalization at that time. Patient required minimal amounts of oxygen for comfort. Patient was however discharge on 2 L supplemental oxygen. On the day of discharge patient was able to communicate was able to breathe normally and doing well. However 5-6 hours upon discharge she apparently got more lethargic unsure if patient got hypoxic if oxygen came off her. Patient was started on BiPAP this morning the selective care unit and improved rapidly. Patient continues to have a poor cough even at this time intermittently Patient also noted to be breathing very shallow. 05/02/2016 Patient underwent a fluoroscopic study to evaluate diaphragmatic paralysis. There is some question regarding underlying parkinsonism. Patient also had an episode of choking. Patient underwent a modified barium swallow and had significant amount of penetration. Objective - Vital Signs Vital signs: Vital Signs Temp 97.1 F L 05/02/16 11:15 Pulse 67 05/02/16 11:15 Resp 22 05/02/16 11:15 BP 132/60 05/02/16 11:15 Pulse Ox 97 05/02/16 11:15 Intake & Output 05/01/16 05/02/16 05/02/16 18:59 06:59 18:59 Intake Total 440 480 Output Total 3 Balance 440 477 Weight 68.5 kg 71.5 kg Intake: IV 300 .9 saline 300 Oral 140 480 Output: Stool 3 Other: Voiding Method Diaper Diaper # Voids 1 1 1 # Bowel Movements 1 1 - Exam gen appearance flat affect is able to answer some questions Lungs wheezing appreciated transmitted from the hypopharynx Heart regular rate and rhythm systolic murmur is appreciated at the aortic region Abdomen is soft nontender no organomegaly bowel sounds are intact Lower extremities no edema is appreciated Neurologically moves all 4 extremities - Labs CBC & Chem 7: 05/01/16 03:53 05/01/16 03:53 Labs: Abnormal Lab Results - Last 24 Hours (Table) 05/01/16 05/01/16 05/01/16 Range/Units 16:29 17:21 20:45 POC Glucose (mg/dL) 208 H 111 H (75-99) mg/dL Plasma Lactic Acid Saran 2.2 H* (0.7-2.0) mmol/L 05/02/16 Range/Units 05:55 POC Glucose (mg/dL) 191 H (75-99) mg/dL Plasma Lactic Acid Saran (0.7-2.0) mmol/L Assessment and Plan Plan: Acute on chronic hypoxic respiratory failure #2 chronic hypercapnic respiratory failure #3 history of COPD with an acute exacerbation #4 dementia #5 hypertension #6 debility currently a resident of [facility] #7 dysphagia #8 parkinsonism? Plan Discussed with the family in regards to patient having dysphagia at this time. An NG tube will be placed temporary feeding will be attempted. Discussed that the tubes in patients with dementia or not indicated according to the current studies. Does not change morbidity or mortality. Patient's daughter seems to verbalized understanding. Stated that attempting temporary feeding and if patient does not tolerate it at that time goals of care will be changed to comfort measures and hospice will be consulted. The daughter stated that it seemed more appropriate. Repeat and serial swallow eval 's will be done by speech therapy as well. Prognosis appears very poor
[2016-05-02 16:47] LABS: Glucose,Whole Blood 188 mg/dL (75-99)
--- NOTE | 2016-05-02 17:29 | FL ---
MODIFIED SWALLOW / DEGLUTITION STUDY EXAMINATION TYPE: FL barium swallow w video DATE OF EXAM: 05/02/2016 1:53 PM CLINICAL HISTORY: 85-year-old female trouble swallowing, abnormal bedside exam. History of Parkinson' s disease. TECHNIQUE: Deglutition study is performed utilizing thin liquid barium and honey thick liquid barium . COMPARISON: None. FINDINGS: There is large amount of aspiration with thin liquid consistencies. Honey thickened liquid consistenc y was attempted and also showed aspiration. The exam was terminated. IMPRESSION: Exam terminated after ewa aspiration with thin liquid and honey thickened liquid consistencies. Ple ase refer to speech therapist notes for further details if necessary.
[2016-05-02 20:45] LABS: Glucose,Whole Blood 134 mg/dL (75-99)
[2016-05-03] MEDS: methylPREDNISolone SOD SUCCI 125 MG/2 ML VIAL IV SCH ×4 (00:41→17:12)
[2016-05-03 06:16] LABS: Glucose,Whole Blood 185 mg/dL (75-99)
[2016-05-03] MEDS: INSULIN LISPRO (humaLOG) 300 UNIT/3 ML VIAL SQ SCH ×4 (06:50→20:34)
[2016-05-03 06:58] LABS: Basophils % (A) 0 %; CH 31.5; CHCM 33.6; Eosinophils % (A) 0 %; HCT 46.1 % (34.0-46.0); HDW 2.28; HGB 14.7 gm/dL (11.4-16.0); Luc # (Auto) 0.02; Luc % (Auto) 0; Lymphocytes # (A) 0.6 k/uL (1.0-4.8); Lymphocytes % (A) 5 %; MCHC 31.8 g/dL (31.0-37.0); MCV 94.2 fL (80.0-100.0); Mean Platelet Volume 7.2; Monocytes # (A) 0.4 k/uL (0-1.0); Monocytes % (A) 4 %; Neutrophils % (A) 91 %; RDW 11.9 % (11.5-15.5); WBC (Perox) 10.91
[2016-05-03 07:20] LABS: ALT 53 U/L (9-52); AST 14 U/L (14-36); Alkaline Phosphatase 98 U/L (38-126); Blood Urea Nitrogen 38 mg/dL (7-17); Calcium 9.6 mg/dL (8.4-10.2); Chloride 94 mmol/L (98-107); Non-African American GFR(MDRD) >60 (>60 ml/min/1.73 sqM); Potassium 3.4 mmol/L (3.5-5.1); Sodium 144 mmol/L (137-145); Total Bilirubin 0.7 mg/dL (0.2-1.3); Total Protein 5.8 g/dL (6.3-8.2)
[2016-05-03 07:27] LABS: Anion Gap 9 mmol/L
[2016-05-03 07:37] LABS: Carbon Dioxide 41 mmol/L (22-30)
[2016-05-03 07:39] LABS: Glucose 184 mg/dL (74-99)
[2016-05-03] MEDS: SYMBICORT 160-4.5 MCG INHALER INHALATION SCH ×2 (08:33→19:29)
[2016-05-03] MEDS: IPRATROPIUM-ALBUTEROL 3 ML NEB INHALATION SCH ×4 (08:33→19:29)
[2016-05-03] MEDS: FUROSEMIDE 20 MG TAB PO SCH ×2 (09:25→16:41)
[2016-05-03] MEDS: HEPARIN SODIUM,PORCINE 5,000 UNIT/ML 1 ML VIAL SQ SCH ×2 (09:27→20:35)
[2016-05-03 11:50] LABS: Glucose,Whole Blood 138 mg/dL (75-99)
--- NOTE | 2016-05-03 12:35 | XR ---
EXAMINATION TYPE: XR abdomen 1V DATE OF EXAM: 05/03/2016 12:28 PM CLINICAL DATA: 85-year-old female verify NG placement for tube feeding, [facility] COMPARISON: None FINDINGS: NG tube courses below the diaphragm and is looped in the gastric fundus region below the left hemidia phragm. Supine imaging limited for assessment of free air. Gassy small bowel and colonic loops with retained oral contrast material in the right hemicolon likel y from patient's modified barium swallow yesterday. There is a large amount of stool within the pelvis distending the rectum up to 8.8 cm wide. IMPRESSION: 1. NG tube extends below the diaphragm and courses to the left upper quadrant with tip and sidehole i n the gastric fundus. 2. No evidence for bowel obstruction. Gassy bowel and oral contrast seen in the right hemicolon. 3. Correlate to exclude fecal impaction (rectum distended up to 8.8 cm wide with stool).
[2016-05-03] MEDS ORDERED: ACETAMINOPHEN IV (For NPO) 1,000 MG in EMPTY BAG 1 BAG IVPB ONE (14:40)
--- NOTE | 2016-05-03 15:30 | P.PN ---
Subjective This is a 85-year-old female patient who has significant dementia. She was admitted on 05/01/2016 for complaints of increasing shortness of breath. Her chest x-ray showed a left lower lobe atelectasis and possible left pleural effusion. There was some evidence of elevated hemidiaphragm however a sniff test was negative and there is no suggestion of paralysis of the hemidiaphragm. Some chronic elevations of the left hemidiaphragm. She had also undergone a swallow evaluation and there which needed to be stopped as she had significant aspiration thin liquids as well as honey thickened liquids. She has a nasogastric tube in place and is receiving tube feedings. She is seen again today in follow-up on the selective care unit. She is awake and alert in no acute distress. She is maintaining good O2 saturations in the mid 90s on 2 L/m per nasal cannula. She's been afebrile. Objective - Vital Signs Vital signs: Vital Signs Temp 98 F 05/03/16 12:00 Pulse 80 05/03/16 12:23 Resp 20 05/03/16 12:00 BP 144/60 05/03/16 12:00 Pulse Ox 95 05/03/16 12:00 Intake & Output 05/02/16 05/03/16 05/03/16 18:59 06:59 18:59 Intake Total 10 Output Total 1 Balance -1 10 Weight 73 kg 73.4 kg 73.4 kg Intake: Tube Feeding 10 Output: Urine/Stool Mix 1 Other: Voiding Method Diaper Diaper # Voids 1 1 - Exam GENERAL EXAM: Alert, confused to time and place, comfortable in no apparent distress. HEAD: Normocephalic. EYES: Normal reaction of pupils, equal size. NOSE: Clear with pink turbinates. Nasogastric tube secured in place. THROAT: No erythema or exudates. NECK: No masses, no JVD. CHEST: No chest wall deformity. LUNGS: Equal air entry with few scattered rhonchi. Diminished in the left base. CVS: S1 and S2 normal with no audible murmurs, regular rhythm. ABDOMEN: Distended, soft hypoactive bowel sounds, no guarding or rigidity. Extrema is: No significant peripheral edema. No clubbing, no cyanosis. Peripheral pulses are intact. - Labs CBC & Chem 7: 05/03/16 06:07 05/03/16 06:07 Labs: Abnormal Lab Results - Last 24 Hours (Table) 05/02/16 05/02/16 05/03/16 Range/Units 16:23 20:44 06:07 WBC 11.0 H (3.8-10.6) k/uL Hct 46.1 H (34.0-46.0) % Neutrophils # 10.0 H (1.3-7.7) k/uL Lymphocytes # 0.6 L (1.0-4.8) k/uL Potassium (3.5-5.1) mmol/L Chloride (98-107) mmol/L Carbon Dioxide (22-30) mmol/L BUN (7-17) mg/dL Creatinine (0.52-1.04) mg/dL Glucose (74-99) mg/dL POC Glucose (mg/dL) 188 H 134 H (75-99) mg/dL ALT (9-52) U/L Total Protein (6.3-8.2) g/dL Albumin (3.5-5.0) g/dL 05/03/16 05/03/16 05/03/16 Range/Units 06:07 06:14 11:39 WBC (3.8-10.6) k/uL Hct (34.0-46.0) % Neutrophils # (1.3-7.7) k/uL Lymphocytes # (1.0-4.8) k/uL Potassium 3.4 L (3.5-5.1) mmol/L Chloride 94 L (98-107) mmol/L Carbon Dioxide 41 H* (22-30) mmol/L BUN 38 H (7-17) mg/dL Creatinine 0.47 L (0.52-1.04) mg/dL Glucose 184 H (74-99) mg/dL POC Glucose (mg/dL) 185 H 138 H (75-99) mg/dL ALT 53 H (9-52) U/L Total Protein 5.8 L (6.3-8.2) g/dL Albumin 3.1 L (3.5-5.0) g/dL Assessment and Plan Plan: Impression: #1 Acute on chronic hypoxic respiratory failure secondary to underlying chronic obstructive pulmonary disease, medical debility, aspiration. #2 Parkinson's disease. #3 Congestive heart failure. #4 Hypothyroidism. #5 Dementia. Plan: The patient was seen and evaluated by Dr. Ashford. The patient is definitely aspirating and her swallow evaluation had to be stopped prematurely secondary to the same. Nasogastric tube remains in place. Tube feedings have been initiated. A sitter is in place. Continue with aspiration precautions. Keep the head of bed elevated. We'll continue to follow make further recommendations based on her clinical status.
[2016-05-03 16:56] LABS: Glucose,Whole Blood 172 mg/dL (75-99)
[2016-05-03 20:33] LABS: Glucose,Whole Blood 156 mg/dL (75-99)
[2016-05-03] MEDS ORDERED: NA PHOS,M-B/NA PHOS,DI-BA 133 ML ENEMA RECTAL ONE ×2 (22:43→22:46)
[2016-05-04] MEDS: methylPREDNISolone SOD SUCCI 125 MG/2 ML VIAL IV SCH ×3 (01:25→14:07)
[2016-05-04 07:35] LABS: Glucose,Whole Blood 205 mg/dL (75-99)
[2016-05-04] MEDS: HEPARIN SODIUM,PORCINE 5,000 UNIT/ML 1 ML VIAL SQ SCH ×2 (07:49→23:02)
[2016-05-04] MEDS: INSULIN LISPRO (humaLOG) 300 UNIT/3 ML VIAL SQ SCH ×4 (07:53→23:15)
[2016-05-04] MEDS: IPRATROPIUM-ALBUTEROL 3 ML NEB INHALATION SCH ×4 (08:46→19:00)
[2016-05-04] MEDS: SYMBICORT 160-4.5 MCG INHALER INHALATION SCH ×2 (08:54→08:58)
[2016-05-04] MEDS ORDERED: ACETAMINOPHEN IV (For NPO) 1,000 MG in EMPTY BAG 1 BAG IVPB PRN (09:56)
--- NOTE | 2016-05-04 10:51 | PN ---
DATE OF SERVICE: 05/03/2016 INTERVAL HISTORY: Ms. Pollock is an 85-year-old female who was recently discharged from the hospital while being treated for acute exacerbation of congestive heart failure, was sent back from [facility] due to worsening short of breath. Patient currently being treated for acute COPD exacerbation. Otherwise, patient has been aspirating and cannot tolerate p.o. diet. Patient had barium swallow study done, which was aborted in the middle of the study due to aspiration. Otherwise, patient was placed on NG tube which the patient pulled by herself. Today after discussing with the patient and also with the family, patient is agreeable for the NG tube to be replaced again. Bedside sitter was placed at this time and patient will be continued on aspiration precautions. Otherwise, the patient will be continued on current management. Her shortness of breath is much improved after BiPAP machine in the intensive care unit. Currently saturating well on nasal cannula. PEG tube placement is not recommended at this time due to underlying dementia and possible risk of aspiration is high as the patient is bedridden. Nutrition has been consulted for tube feedings by NG tube. Pulmonary is following this patient as well. Otherwise, patient denied any complaints of chest pain or shortness of breath. No nausea or vomiting. Patient is a poor historian and could not provide a complete history or review of systems. Current medications include DuoNeb, Symbicort, ceftriaxone, Lasix, heparin subcu, Humalog, methylprednisone. PHYSICAL EXAMINATION: An 85-year-old female, lying in bed, awake, alert, oriented x1 to 2, appears to be in no apparent distress. VITALS: Blood pressure is 162/76. Pulse is 55, respiratory rate 18, temperature afebrile, pulse ox 94% on 2 liters nasal cannula. HEENT: Atraumatic, normocephalic. Neck is supple. No JVD. CVS: S1, S2 heard. Systolic murmur appreciate in the aortic area. LUNGS: Bilateral prolonged expiration and minimal wheezing on the left base. Nonlabored breathing. ABDOMEN: Soft, nontender. Bowel sounds are present. [employer]: Awake, alert, oriented x1 to 2. Appears to be in no focal deficits. Able to move all her extremities. EXTREMITIES: No edema. Pulses palpable bilaterally. No clubbing or cyanosis. PSYCHIATRIC: Cooperative. Could not be assessed completely. LABORATORY DATA: WBC 11.0, hemoglobin 14.7, platelets 189. Sodium 141, potassium 3.4, chloride 94, bicarbonate 41, BUN 38, creatinine 0.47, albumin 3.1. IMPRESSION: 1. Acute on chronic hypoxic and hypercapnic respiratory failure, likely due to chronic obstructive pulmonary disease exacerbation. 2. Acute chronic obstructive pulmonary disease exacerbation. 3. Dementia. 4. Parkinson's disease. 5. Hypertension. 6. Medical debility and bedridden. 7. Poor oral intake due to aspiration and dysphagia. 8. Deep venous thrombosis prophylaxis. DISCUSSION AND PLAN: An 85-year-old female admitted to the hospital with worsening short of breath which is improved with BiPAP machine. Otherwise patient is aspirating with even honey-thickened liquids and failed barium swallow evaluation. NG tube was placed again today. Continue with a bedside sitter. Follow up on the abdominal x-ray. I did discuss with the family in detail. They all were in agreement with NG tube placement. Not a candidate for PEG tube placement due to dementia and possibility of aspiration is high. I will continue the current management. Prognosis is guarded. Further recommendations based on the clinical course. Prognosis appears to be poor. Discussed with family in detail.
[2016-05-04 12:13] LABS: Glucose,Whole Blood 168 mg/dL (75-99)
[2016-05-04 15:29] LABS: Basophils % (A) 0 %; CH 31.4; CHCM 33.5; Eosinophils % (A) 0 %; HCT 43.1 % (34.0-46.0); Luc # (Auto) 0.02; Luc % (Auto) 0; Lymphocytes # (A) 0.2 k/uL (1.0-4.8); Lymphocytes % (A) 2 %; MCH 30.5 pg (25.0-35.0); MCHC 32.5 g/dL (31.0-37.0); MCV 93.9 fL (80.0-100.0); Mean Platelet Volume 7.4; Monocytes # (A) 0.3 k/uL (0-1.0); Monocytes % (A) 3 %; Neutrophils # (A) 9.5 k/uL (1.3-7.7); Neutrophils % (A) 94 %; RBC 4.59 m/uL (3.80-5.40); RDW 11.9 % (11.5-15.5); WBC 10.1 k/uL (3.8-10.6); WBC (Perox) 10.63
[2016-05-04 15:41] LABS: Anion Gap 7 mmol/L; Blood Urea Nitrogen 39 mg/dL (7-17); Calcium 9.4 mg/dL (8.4-10.2); Chloride 97 mmol/L (98-107); Glucose 230 mg/dL (74-99); Non-African American GFR(MDRD) >60 (>60 ml/min/1.73 sqM); Potassium 3.2 mmol/L (3.5-5.1); Sodium 144 mmol/L (137-145)
--- NOTE | 2016-05-04 16:10 | P.PN ---
Subjective This is a 85-year-old female patient who has significant dementia. She was admitted on 05/01/2016 for complaints of increasing shortness of breath. Her chest x-ray showed a left lower lobe atelectasis and possible left pleural effusion. There was some evidence of elevated hemidiaphragm however a sniff test was negative and there is no suggestion of paralysis of the hemidiaphragm. Some chronic elevations of the left hemidiaphragm. She had also undergone a swallow evaluation and there which needed to be stopped as she had significant aspiration thin liquids as well as honey thickened liquids. She has a nasogastric tube in place and is receiving tube feedings. She is seen again today in follow-up on the 17 on the regular medical floor. She is awake and alert in no acute distress. A sitter is at the bedside to assure she does not pull out her NG tube. She is maintaining good O2 saturations in the mid 90s on 2 L/m per nasal cannula. She's been afebrile. Objective - Vital Signs Vital signs: Vital Signs Temp 98.0 F 05/04/16 15:00 Pulse 80 05/04/16 16:01 Resp 14 05/04/16 15:00 BP 138/63 05/04/16 15:00 Pulse Ox 81 L 05/04/16 15:00 Intake & Output 05/03/16 05/04/16 05/04/16 18:59 06:59 18:59 Intake Total 10 265 Balance 10 265 Weight 73.4 kg 72.5 kg Intake: Tube Feeding 10 265 Other: Voiding Method Diaper Diaper Incontinent Incontinent # Voids 1 1 # Bowel Movements 1 - Exam GENERAL EXAM: Alert, confused to time and place, comfortable in no apparent distress. HEAD: Normocephalic. EYES: Normal reaction of pupils, equal size. NOSE: Clear with pink turbinates. Nasogastric tube secured in place. THROAT: No erythema or exudates. NECK: No masses, no JVD. CHEST: No chest wall deformity. LUNGS: Equal air entry with few scattered rhonchi. Diminished in the left base. CVS: S1 and S2 normal with no audible murmurs, regular rhythm. ABDOMEN: Distended, soft hypoactive bowel sounds, no guarding or rigidity. Extrema is: No significant peripheral edema. No clubbing, no cyanosis. Peripheral pulses are intact. - Labs CBC & Chem 7: 05/04/16 15:11 05/04/16 15:11 Labs: Abnormal Lab Results - Last 24 Hours (Table) 05/03/16 05/03/16 05/04/16 Range/Units 16:45 20:32 07:29 Neutrophils # (1.3-7.7) k/uL Lymphocytes # (1.0-4.8) k/uL Potassium (3.5-5.1) mmol/L Chloride (98-107) mmol/L BUN (7-17) mg/dL Creatinine (0.52-1.04) mg/dL Glucose (74-99) mg/dL POC Glucose (mg/dL) 172 H 156 H 205 H (75-99) mg/dL 05/04/16 05/04/16 05/04/16 Range/Units 12:09 15:11 15:11 Neutrophils # 9.5 H (1.3-7.7) k/uL Lymphocytes # 0.2 L (1.0-4.8) k/uL Potassium 3.2 L (3.5-5.1) mmol/L Chloride 97 L (98-107) mmol/L BUN 39 H (7-17) mg/dL Creatinine 0.47 L (0.52-1.04) mg/dL Glucose 230 H (74-99) mg/dL POC Glucose (mg/dL) 168 H (75-99) mg/dL Assessment and Plan Plan: Impression: #1 Acute on chronic hypoxic respiratory failure secondary to underlying chronic obstructive pulmonary disease, medical debility, aspiration. #2 Parkinson's disease. #3 Congestive heart failure. #4 Hypothyroidism. #5 Dementia. Plan: The patient was seen and evaluated by Dr. Ashford. The patient was definitely aspirating and her swallow evaluation had to be stopped prematurely secondary to the same. She remains on antibiotics in the form of ceftriaxone. We'll back off on her steroids. He did desaturate into the 80s on room air. We'll continue O2 by nasal cannula. Nasogastric tube remains in place. Tube feedings have been initiated. A sitter is in place. Continue with aspiration precautions. Keep the head of bed elevated. We'll continue to follow make further recommendations based on her clinical status.
[2016-05-04 18:02] LABS: Glucose,Whole Blood 203 mg/dL (75-99)
[2016-05-04] MEDS: FUROSEMIDE 10 MG/ML 2 ML VIAL IV SCH ×2 (18:52→18:57)
[2016-05-04] MEDS: BUDESONIDE 1 MG/2 ML NEBU INHALATION SCH (19:00)
--- NOTE | 2016-05-04 19:04 | CONS ---
DATE OF CONSULTATION: REASON FOR CONSULTATION: Dysphagia. HISTORY: This is an 85-year-old white female who reportedly had a hip fracture.
--- NOTE | 2016-05-04 19:56 | CONS ---
DATE OF CONSULTATION: REASON FOR CONSULTATION: Dysphagia. HISTORY: This is an 85-year-old white female who reportedly had a hip fracture late March. She was admitted at that time, but then was ultimately discharged, but then readmitted 05/01/2016 with respiratory difficulty with acute exacerbation of COPD and respiratory failure. She has had some dysphagia and due to this had a modified barium swallow, which she failed having eaw aspiration with thin liquids as well as a thickened liquids. Therefore she has had an NG tube placed for nutrition and hydration. She does have dementia and was in a snf prior to coming here and apparently there had been some thought of her having Parkinson's disease. She does see Dr. Dsouza; however, we do not have any of his office notes or hospital notes at least from this admission. I did get history from her daughter as the patient herself is not a good historian due to the dementia and her daughter stated that she was placed on Sinemet at the snf and she had improvement of numerous symptoms. It does not appear that she is on this presently here. She is on IV antibiotics and Lasix as well as steroids. The patient herself is not a good historian and therefore the information was obtained from the hospital records as well as the patient's daughter over the phone. PAST MEDICAL HISTORY: Positive for heart failure, COPD, dementia, hypertension, musculoskeletal disorder, neurological disorder, thyroid disorder. PAST SURGICAL HISTORY: Tonsillectomy, right hip arthroscopy recently. ALLERGIES: No known drug allergies. Medications at the snf as well as here in the hospital will not be re-enumerated, as they are in the chart already. REVIEW OF SYSTEMS: Noncontributory as the patient is a poor historian. PHYSICAL EXAM: The patient is afebrile. Note that her pulse oximetry was low prior to replacing the 2 liters oxygen. She is afebrile. GENERAL: Well-developed, elderly white female in no acute distress. She is awake and alert, but not oriented. HEENT: Her voice is wet, but no hoarseness otherwise. HEAD: Normocephalic and atraumatic. EARS: Bilateral canals clear, tympanic membranes unremarkable and mobile. Nose shows NG-tube on the right. Left nasal cavity unremarkable. Oral cavity and oropharynx shows no abnormal masses or lesions. Normal palatal mobility. Neck is supple without adenopathy or tenderness. Hypopharynx and larynx attempted to be evaluated through the left nasal cavity with flexible laryngoscopy was not tolerated and the patient could not cooperate with this at all and therefore, this was not evaluated fully. ASSESSMENT: Dysphagia which is most likely neuromuscular in nature. This can be as a result of the dementia and Parkinson's, which apparently is thought to be part of her diagnosis. I did discuss her case with her daughter, who apparently thought that she might be a candidate for Botox for achalasia but she does not have evidence of achalasia including on her modified barium swallow. She should continue to be n.p.o. with tube feedings. Certainly, if her condition is not improved then PEG tube placement would be preferable to the NG tube for comfort as well as long-term as well as avoids long-term complications from NG tube. I did discuss this with her daughter in detail. I would recommend Neurology consult as her daughter feels that her neurologic symptoms and barium swallow from her previous admission had worsened. It does not appear that she is being actively treated for Parkinson's presently. Her general neurologist is Dr. Dsouza; however, I did explain to her that he may not be corrections cadet, and she may have another neurologist see her. I will leave this consultation to her primary service to decide as far as if this appropriate or not. If there are questions or concerns please feel free to contact me.
[2016-05-04] MEDS ORDERED: POTASSIUM CHLORIDE 20 MEQ in WATER FOR INJECTION 1 100ML.BAG IVPB STA (21:53)
[2016-05-04 23:21] LABS: Glucose,Whole Blood 166 mg/dL (75-99)
[2016-05-04] MEDS: POTASSIUM CHLORIDE 10 MEQ, LIDOCAINE 2% INJ 10 MG in SODIUM CHLORIDE 0.9% 100 ML IVPB SCH (23:59)
[2016-05-05] MEDS: FUROSEMIDE 10 MG/ML 2 ML VIAL IV SCH ×2 (00:02→08:59)
[2016-05-05] MEDS: methylPREDNISolone SOD SUCCI 40 MG/ML 1 ML VIAL IV SCH ×4 (00:09→23:06)
[2016-05-05] MEDS: POTASSIUM CHLORIDE 10 MEQ, LIDOCAINE 2% INJ 10 MG in SODIUM CHLORIDE 0.9% 100 ML IVPB SCH ×3 (02:00→21:55)
[2016-05-05 07:20] LABS: Glucose,Whole Blood 203 mg/dL (75-99)
[2016-05-05] MEDS: IPRATROPIUM-ALBUTEROL 3 ML NEB INHALATION SCH ×4 (07:20→19:33)
[2016-05-05] MEDS: BUDESONIDE 1 MG/2 ML NEBU INHALATION SCH ×2 (07:20→19:33)
--- NOTE | 2016-05-05 07:27 | PN ---
DATE OF SERVICE: 05/04/2016 INTERVAL HISTORY: Ms. Pollock is an 85-year-old female who recently was admitted for chronic obstructive pulmonary disease exacerbation, came to the hospital with worsening shortness of breath. Currently being treated for acute on chronic hypoxic respiratory failure secondary to chronic obstructive pulmonary disease. Otherwise, the patient is currently n.p.o. due to aspiration and barium swallow evaluation done, which could not be completed due to aspiration. Patient is currently maintained on NG tube feeding. Even though patient's dysphagia is most likely secondary to neuromuscular related secondary to underlying dementia and Parkinson disease. Upon her daughter's insistence, ENT has been consulted for further evaluation who recommended consultation with neurology at this time. Otherwise, patient is being treated for COPD exacerbation, saturating on oxygen via nasal cannula and she has been reduced to Solu-Medrol 40 mg q.8 hourly currently. The patient currently denied any complaints of worsening short of breath or chest pain. The patient is awake and alert and could not provide much history due to underlying dementia. Patient otherwise did have a bowel movement last night, which resolved her fecal impaction. Complete review of systems could not be obtained from the patient. CURRENT MEDICATIONS: Reviewed. PHYSICAL EXAMINATION: An 85-year-old female, lying in the bed, awake, alert, and oriented x1, appears to be in no apparent distress. VITALS: Blood pressure is 138/63, pulse is 92, respirations 14, temperature afebrile. Pulse ox is 81% on room air and saturated well on nasal cannula at 93% on 2 liters nasal cannula. HEENT: Atraumatic, normocephalic. Neck is supple. No JVD. NG tube is in place. CVS: S1, S2 heard. No murmurs, no gallop. LUNGS: Bilateral air entry is present. Diminished breath sounds basally. Prolonged expiratory phase and no wheezing noted. ABDOMEN: Soft, nontender. Bowel sounds are present. TRANSPLANT CASE MANAGER: Awake, alert, oriented x1. Able to move all her extremities. PSYCHIATRIC: Cooperative. Could not be assessed completely. LABORATORY DATA: WBC 10.1, hemoglobin 14.0, platelets 167. Sodium 144, potassium 3.2, chloride 97. BUN 39, creatinine 0.7. Blood sugar is 230, calcium 9.4. IMPRESSION: 1. Acute on chronic hypoxic respiratory failure secondary to chronic obstructive pulmonary disease exacerbation, currently maintained on nasal cannula. 2. Dysphagia, most likely neuromuscular related. Patient failed barium swallow evaluation. Currently n.p.o. and is on NG tube feeding. 3. Dementia. 4. Parkinson disease. 5. Hypertension. 6. Medical debility and bedridden. 7. Poor oral intake due to dysphagia and possibility of aspiration. Currently n.p.o. 8. Deep venous thrombosis prophylaxis. 9. Patient has poor prognosis. DISCUSSION AND PLAN: An 85-year-old female admitted to the hospital with worsening shortness of breath, improved with BiPAP machine and currently maintained on nasal cannula. Continue with steroids, continue with breathing treatments and antibiotics. Continue NG tube feeding and ENT says no intervention from their standpoint. Otherwise, will discuss with the family regarding long-term nutrition care including PEG tube placement. Further recommendations based on clinical course. Prognosis is poor.
[2016-05-05] MEDS: INSULIN LISPRO (humaLOG) 300 UNIT/3 ML VIAL SQ SCH ×4 (08:58→23:08)
[2016-05-05] MEDS: HEPARIN SODIUM,PORCINE 5,000 UNIT/ML 1 ML VIAL SQ SCH ×2 (08:59→20:44)
[2016-05-05 11:11] LABS: Glucose,Whole Blood 182 mg/dL (75-99)
[2016-05-05 11:37] LABS: Basophils % (A) 0 %; CHCM 32.7; Eosinophils # (A) 0.1 k/uL (0-0.7); Eosinophils % (A) 1 %; HCT 47.6 % (34.0-46.0); HDW 2.35; HGB 15.4 gm/dL (11.4-16.0); Luc # (Auto) 0.02; Luc % (Auto) 0; Lymphocytes # (A) 0.4 k/uL (1.0-4.8); Lymphocytes % (A) 4 %; MCH 30.7 pg (25.0-35.0); MCHC 32.3 g/dL (31.0-37.0); MCV 94.8 fL (80.0-100.0); Mean Platelet Volume 6.7; Monocytes # (A) 0.4 k/uL (0-1.0); Monocytes % (A) 4 %; Neutrophils # (A) 10.1 k/uL (1.3-7.7); Neutrophils % (A) 92 %; RBC 5.02 m/uL (3.80-5.40); RDW 11.9 % (11.5-15.5)
[2016-05-05 12:03] LABS: Blood Urea Nitrogen 39 mg/dL (7-17); Calcium 9.9 mg/dL (8.4-10.2); Chloride 98 mmol/L (98-107); Glucose 200 mg/dL (74-99); Non-African American GFR(MDRD) >60 (>60 ml/min/1.73 sqM); Potassium 3.1 mmol/L (3.5-5.1); Sodium 149 mmol/L (137-145)
[2016-05-05 12:10] LABS: Anion Gap 10 mmol/L
[2016-05-05 12:16] LABS: Carbon Dioxide 41 mmol/L (22-30)
--- NOTE | 2016-05-05 12:16 | XR ---
EXAMINATION TYPE: XR chest 2V DATE OF EXAM: 05/05/2016 11:43 AM COMPARISON: 05/01/2016 INDICATION: Recent NG tube, difficulty swallowing TECHNIQUE: Frontal and lateral views of the chest are obtained. FINDINGS: The heart size is normal. The pulmonary vasculature is normal. The lungs are clear. IMPRESSION: 1. No acute pulmonary process.
[2016-05-05] MEDS ORDERED: Potassium Replacement Protocol 1 EACH MISC MISCELLANE PRN (13:10)
[2016-05-05] MEDS: POTASSIUM CHLORIDE 10 MEQ, LIDOCAINE 2% INJ 10 MG in SODIUM CHLORIDE 0.9% 100 ML IV SCH ×2 (14:58→16:40)
[2016-05-05] MEDS: DEXTROSE 5%-0.45% NACL 1,000 ML IV SCH (15:41)
[2016-05-05 18:41] LABS: Glucose,Whole Blood 164 mg/dL (75-99)
[2016-05-05] MEDS ORDERED: FUROSEMIDE 10 MG/ML 2 ML VIAL IV SCH (21:00)
[2016-05-05 23:27] LABS: Glucose,Whole Blood 179 mg/dL (75-99)
[2016-05-06] MEDS: POTASSIUM CHLORIDE 10 MEQ, LIDOCAINE 2% INJ 10 MG in SODIUM CHLORIDE 0.9% 100 ML IVPB SCH ×2 (01:47→03:07)
[2016-05-06 05:17] LABS: Glucose,Whole Blood 151 mg/dL (75-99)
[2016-05-06] MEDS: INSULIN LISPRO (humaLOG) 300 UNIT/3 ML VIAL SQ SCH ×4 (05:17→23:15)
[2016-05-06] MEDS: IPRATROPIUM-ALBUTEROL 3 ML NEB INHALATION SCH ×4 (07:29→20:06)
[2016-05-06] MEDS: BUDESONIDE 1 MG/2 ML NEBU INHALATION SCH ×2 (07:29→20:06)
[2016-05-06] MEDS ORDERED: hydrALAZINE HCL 20 MG/ML 1 ML VIAL IVP STA (07:41)
[2016-05-06] MEDS: FUROSEMIDE 10 MG/ML 2 ML VIAL IV SCH (08:25)
[2016-05-06] MEDS: HEPARIN SODIUM,PORCINE 5,000 UNIT/ML 1 ML VIAL SQ SCH ×2 (08:25→20:36)
[2016-05-06] MEDS: methylPREDNISolone SOD SUCCI 40 MG/ML 1 ML VIAL IV SCH ×3 (08:25→20:36)
[2016-05-06 12:04] LABS: Glucose,Whole Blood 254 mg/dL (75-99)
--- NOTE | 2016-05-06 12:12 | P.CNNES ---
History of Present Illness Consult date: 05/06/16 Requesting physician: Argentina Angeles Reason for Consult: Dysphagia/parkinsonism History of Present Illness: Patient is a pleasant 85-year-old female who is being evaluated by the neurology service on 05/06/2016 per the request of Dr. Michele and Dr. Angeles for the above-mentioned complaints. Patient has a history of dementia and currently lives in a halfway. Patient had recent hospital admission for exacerbation of COPD was treated and sent back to halfway. Patient was home less than 24 hours and returned with same complaints. This admission, daughter states patient swallow worsened. ENT was consulted and did a barium swallow which patient failed. NG tube was placed however, patient unable to tolerate NG tube and continues to pull it out. Patient's dysphagia most likely consistent with underlying dementia and Parkinson's disease. Daughter states patient did have swallowing improvement when taking Sinemet. However now the patient is unable to swallow Sinemet cannot be given. Patient is currently being treated for COPD. At the time of my evaluation, patient is resting comfortably in bed and appears to be in no acute distress. Review of Systems REVIEW OF SYSTEMS: Otherwise unremarkable and noncontributory. Past Medical History Past Medical History: Heart Failure, COPD, Dementia, Hypertension, Musculoskeletal Disorder, Neurologic Disorder, Thyroid Disorder Additional Past Medical History / Comment(s): Pt recently admitted to [facility] On 04/22/16 with acute hypoxic respiratory failure, acute exacerbation of COPD likely from tracheobronchitis, CHF, acute metabolic encephalopathy. Other hx: Parkinsons Disease, hypothyroidism. History of Any Multi-Drug Resistant Organisms: None Reported Past Surgical History: Tonsillectomy Additional Past Surgical History / Comment(s): Right hip hemiarthroplasty. Past Anesthesia/Blood Transfusion Reactions: No Reported Reaction Past Psychological History: No Psychological Hx Reported Additional Psychological History / Comment(s): Pt resides at [facility]. She is nonambulatory. She is a mechanical lift to chair. She needs assist with all ADLs. Smoking Status: Former smoker Past Alcohol Use History: None Reported Past Drug Use History: None Reported - Past Family History Mother Family Medical History: Diabetes Mellitus Father Family Medical History: No Reported History Medications and Allergies Home Medications Medication Instructions Recorded Confirmed Type Memantine [Namenda] 10 mg PO BID 04/10/15 05/01/16 History Acetaminophen Tab [Tylenol] 650 mg PO Q4H PRN 04/22/16 05/01/16 History Ascorbic Acid [Vitamin C] 500 mg PO HS 04/22/16 05/01/16 History Biotin 250 mg PO DAILY 04/22/16 05/01/16 History Dermaseptin Ointment 1 applic TOPICAL TID 04/22/16 05/01/16 History Magnesium Oxide [Mag-Ox] 250 mg PO DAILY 04/22/16 05/01/16 History Multivitamins, Thera [Multivitamin] 1 tab PO HS 04/22/16 05/01/16 History Bicknell-3 Fatty Acids/Fish Oil [Fish 1 cap PO HS 04/22/16 05/01/16 History Oil 1,000 mg Softgel] Ubidecarenone [Co Q-10] 200 mg PO DAILY 04/22/16 05/01/16 History Zinc 50 mg PO DAILY 04/22/16 05/01/16 History guaiFENesin-DM 100-10MG/5ML 10 ml PO Q6H PRN 04/22/16 05/01/16 History [Robitussin DM] Budesonide-Formot 160-4.5 Mcg 2 puff INHALATION RT-BID 05/01/16 05/01/16 History [Symbicort 160-4.5 Mcg Inhaler] Ipratropium-Albuterol Nebulize 3 ml INHALATION RT-Q4H PRN 05/01/16 05/01/16 History [Duoneb 0.5 mg-3 mg/3 ml Soln] Ipratropium-Albuterol Nebulize 3 ml INHALATION RT-TID 05/01/16 05/01/16 History [Duoneb 0.5 mg-3 mg/3 ml Soln] predniSONE See Taper PO DAILY 05/01/16 05/01/16 History Allergies Allergy/AdvReac Type Severity Reaction Status Date / Time No Known Allergies Allergy Verified 05/01/16 03:59 Physical Examination - Vital Signs Vital Signs: Vital Signs Temp Pulse Pulse Resp BP BP BP 05/06/16 11:38 72 05/06/16 11:31 72 05/06/16 07:47 80 05/06/16 07:31 76 05/06/16 07:00 97.7 F 68 18 160/105 192/100 05/06/16 03:10 16 05/06/16 02:00 97.8 F 60 16 144/69 05/05/16 23:56 16 05/05/16 20:00 98.1 F 83 16 143/77 05/05/16 19:46 81 05/05/16 19:35 81 05/05/16 16:19 61 05/05/16 16:09 65 05/05/16 14:44 97.8 F 69 16 142/67 05/05/16 12:05 81 Pulse Ox 05/06/16 11:38 05/06/16 11:31 05/06/16 07:47 05/06/16 07:31 05/06/16 07:00 94 L 05/06/16 03:10 05/06/16 02:00 96 05/05/16 23:56 05/05/16 20:00 95 05/05/16 19:46 05/05/16 19:35 96 05/05/16 16:19 05/05/16 16:09 05/05/16 14:44 93 L 05/05/16 12:05 Intake and Output 05/05/16 05/06/16 05/06/16 22:59 06:59 14:59 Other: Voiding Method Diaper Diaper Diaper Incontinent Incontinent Incontinent # Voids 1 1 Weight 70 kg PHYSICAL EXAM: GENERAL APPEARANCE: Patient is a well-developed, female who appears to be in no acute distress. HEENT: Normocephalic, atraumatic, no facial asymmetry is seen. Neck is supple with no masses felt. CARDIOVASCULAR: Regular rate and rhythm. ABDOMEN: Nontender, nondistended. EXTREMITIES: Show no edema or clubbing. NEUROLOGICAL EXAM: Patient is awake, alert, and oriented 2. Patient knows year and self but is unable to state where she is. Speech is mildly dysarthric. Voice is weak. Language is normal. Rigidity is noted in all 4 extremities. Patient able to move all 4 extremities on her own. No facial asymmetry on cranial nerve testing. Motor/sensory exam difficult to assess due to patient dementia. No tremors or seizure-like activity is noted. Results - Laboratory Findings CBC and BMP: 05/05/16 11:17 05/06/16 05:16 Abnormal Lab Findings: Abnormal Labs 05/01/16 05/01/16 05/01/16 08:16 11:54 13:36 WBC Hct Neutrophils # Lymphocytes # ABG pH ABG pCO2 ABG pO2 ABG HCO3 ABG Total CO2 Sodium Potassium Chloride Carbon Dioxide BUN Creatinine Glucose POC Glucose (mg/dL) 170 H 140 H Plasma Lactic Acid Saran 2.7 H* ALT Total Protein Albumin 05/01/16 05/01/16 05/01/16 13:40 16:29 17:21 WBC Hct Neutrophils # Lymphocytes # ABG pH 7.48 H ABG pCO2 50 H ABG pO2 78 L ABG HCO3 37 H ABG Total CO2 38 H Sodium Potassium Chloride Carbon Dioxide BUN Creatinine Glucose POC Glucose (mg/dL) 208 H Plasma Lactic Acid Saran 2.2 H* ALT Total Protein Albumin 05/01/16 05/02/16 05/02/16 20:45 05:55 16:23 WBC Hct Neutrophils # Lymphocytes # ABG pH ABG pCO2 ABG pO2 ABG HCO3 ABG Total CO2 Sodium Potassium Chloride Carbon Dioxide BUN Creatinine Glucose POC Glucose (mg/dL) 111 H 191 H 188 H Plasma Lactic Acid Saran ALT Total Protein Albumin 05/02/16 05/03/16 05/03/16 20:44 06:07 06:07 WBC 11.0 H Hct 46.1 H Neutrophils # 10.0 H Lymphocytes # 0.6 L ABG pH ABG pCO2 ABG pO2 ABG HCO3 ABG Total CO2 Sodium Potassium 3.4 L Chloride 94 L Carbon Dioxide 41 H* BUN 38 H Creatinine 0.47 L Glucose 184 H POC Glucose (mg/dL) 134 H Plasma Lactic Acid Saran ALT 53 H Total Protein 5.8 L Albumin 3.1 L 05/03/16 05/03/16 05/03/16 06:14 11:39 16:45 WBC Hct Neutrophils # Lymphocytes # ABG pH ABG pCO2 ABG pO2 ABG HCO3 ABG Total CO2 Sodium Potassium Chloride Carbon Dioxide BUN Creatinine Glucose POC Glucose (mg/dL) 185 H 138 H 172 H Plasma Lactic Acid Saran ALT Total Protein Albumin 05/03/16 05/04/16 05/04/16 20:32 07:29 12:09 WBC Hct Neutrophils # Lymphocytes # ABG pH ABG pCO2 ABG pO2 ABG HCO3 ABG Total CO2 Sodium Potassium Chloride Carbon Dioxide BUN Creatinine Glucose POC Glucose (mg/dL) 156 H 205 H 168 H Plasma Lactic Acid Saran ALT Total Protein Albumin 05/04/16 05/04/1617 15:11 15:11 17:32 WBC Hct Neutrophils # 9.5 H Lymphocytes # 0.2 L ABG pH ABG pCO2 ABG pO2 ABG HCO3 ABG Total CO2 Sodium Potassium 3.2 L Chloride 97 L Carbon Dioxide BUN 39 H Creatinine 0.47 L Glucose 230 H POC Glucose (mg/dL) 203 H Plasma Lactic Acid Saran ALT Total Protein Albumin 05/04/16 05/05/16 05/05/16 23:05 07:07 11:09 WBC Hct Neutrophils # Lymphocytes # ABG pH ABG pCO2 ABG pO2 ABG HCO3 ABG Total CO2 Sodium Potassium Chloride Carbon Dioxide BUN Creatinine Glucose POC Glucose (mg/dL) 166 H 203 H 182 H Plasma Lactic Acid Saran ALT Total Protein Albumin 05/05/16 05/05/16 05/05/16 11:17 11:17 18:29 WBC 11.0 H Hct 47.6 H Neutrophils # 10.1 H Lymphocytes # 0.4 L ABG pH ABG pCO2 ABG pO2 ABG HCO3 ABG Total CO2 Sodium 149 H Potassium 3.1 L Chloride Carbon Dioxide 41 H* BUN 39 H Creatinine 0.38 L Glucose 200 H POC Glucose (mg/dL) 164 H Plasma Lactic Acid Saran ALT Total Protein Albumin 05/05/16 05/06/16 23:08 05:16 WBC Hct Neutrophils # Lymphocytes # ABG pH ABG pCO2 ABG pO2 ABG HCO3 ABG Total CO2 Sodium Potassium Chloride Carbon Dioxide BUN Creatinine Glucose POC Glucose (mg/dL) 179 H 151 H Plasma Lactic Acid Saran ALT Total Protein Albumin Assessment and Plan Plan: Impression: 1. Dysphagia, consistent with dementia and parkinsonian-like symptoms 2. Dementia 3. Hypertension 4. Debility/bed bound Recommendation: It does appear the patient has dysphagia which is consistent with dementia and underlying Parkinsonian like symptoms. Patient does have muscle rigidity in all 4 extremities. Patient is not ambulatory and has been bed bound for some time now. Daughter states patient did do better with swallowing when placed on Sinemet. Patient is unable to swallow at this point. I recommend PEG placement and Neupro patch 2 mg/every 24 hours with titration up to therapeutic dose. Neupro patch is not formulary here therefore I recommend Sinemet which may be restarted via PEG tube once placed. In time, if swallow improves with Sinemet dosing, patient may be reevaluated for possible pured diet. I will continue to follow with you on an as-needed basis. Feel free to call with any questions or concerns. Thank you for allowing me to participate in the care of your patient. Feel free to call with any questions or concerns. I performed an examination of the patient and discussed the management with the TYPISTS SUPERVISOR. I have reviewed the TYPISTS SUPERVISOR notes and agree with the findings and plan of care.
[2016-05-06] MEDS: DEXTROSE 5%-0.45% NACL 1,000 ML IV SCH (13:40)
[2016-05-06] MEDS ORDERED: SODIUM CHLORIDE 0.45% 1,000 ML IV SCH (13:45)
[2016-05-06 17:37] LABS: Glucose,Whole Blood 122 mg/dL (75-99)
[2016-05-06] MEDS: cloNIDine 0.1 MG/24HR PATCH 1 PATCH PATCH TRANSDERM SCH (17:45)
[2016-05-06 23:34] LABS: Glucose,Whole Blood 170 mg/dL (75-99)
[2016-05-07] MEDS: INSULIN LISPRO (humaLOG) 300 UNIT/3 ML VIAL SQ SCH ×3 (05:36→18:15)
[2016-05-07 05:40] LABS: Glucose,Whole Blood 185 mg/dL (75-99)
[2016-05-07 07:20] LABS: Basophils % (A) 0 %; CH 30.6; CHCM 31.9; Eosinophils % (A) 0 %; HCT 44.9 % (34.0-46.0); HDW 2.28; HGB 14.1 gm/dL (11.4-16.0); Luc # (Auto) 0.01; Luc % (Auto) 0; Lymphocytes # (A) 0.5 k/uL (1.0-4.8); Lymphocytes % (A) 6 %; MCH 30.3 pg (25.0-35.0); MCHC 31.5 g/dL (31.0-37.0); MCV 96.2 fL (80.0-100.0); Mean Platelet Volume 6.6; Monocytes # (A) 0.3 k/uL (0-1.0); Monocytes % (A) 3 %; Neutrophils # (A) 7.3 k/uL (1.3-7.7); Neutrophils % (A) 90 %; RBC 4.67 m/uL (3.80-5.40); RDW 11.9 % (11.5-15.5); WBC 8.1 k/uL (3.8-10.6); WBC (Perox) 8.12
[2016-05-07 07:48] LABS: Blood Urea Nitrogen 34 mg/dL (7-17); Chloride 106 mmol/L (98-107); Glucose 166 mg/dL (74-99); Non-African American GFR(MDRD) >60 (>60 ml/min/1.73 sqM); Sodium 154 mmol/L (137-145)
[2016-05-07 07:54] LABS: Anion Gap 8 mmol/L
[2016-05-07 08:01] LABS: Carbon Dioxide 40 mmol/L (22-30)
[2016-05-07] MEDS: BUDESONIDE 1 MG/2 ML NEBU INHALATION SCH ×2 (08:49→20:34)
[2016-05-07] MEDS: IPRATROPIUM-ALBUTEROL 3 ML NEB INHALATION SCH ×4 (08:49→20:34)
[2016-05-07] MEDS: HEPARIN SODIUM,PORCINE 5,000 UNIT/ML 1 ML VIAL SQ SCH ×2 (09:08→20:11)
[2016-05-07] MEDS: POTASSIUM CHLORIDE 10 MEQ, LIDOCAINE 2% INJ 10 MG in SODIUM CHLORIDE 0.9% 100 ML IV SCH ×2 (09:08→13:15)
[2016-05-07] MEDS: methylPREDNISolone SOD SUCCI 40 MG/ML 1 ML VIAL IV SCH ×2 (09:09→20:11)
[2016-05-07] MEDS: FUROSEMIDE 10 MG/ML 2 ML VIAL IV SCH (09:09)
[2016-05-07 11:34] LABS: Glucose,Whole Blood 143 mg/dL (75-99)
[2016-05-07] MEDS: DEXTROSE 5% IN WATER 1,000 ML with POTASSIUM CHLORIDE 40 MEQ IV SCH (13:04)
--- NOTE | 2016-05-07 14:49 | PN ---
DATE OF SERVICE: 05/05/2016 INTERVAL HISTORY: Mrs. Pollock is an 85 -year-old female who was recently admitted to the hospital for chronic obstructive pulmonary disease exacerbation admitted to the hospital with worsening short of breath. Currently being treated for acute on chronic hypoxic respiratory failure secondary to COPD exacerbation. Breathing ( ) much improved now. Otherwise, steroid dose has been reduced and currently patient failed swallowing study and currently n.p.o. and the patient pulled out NG tube but unsuccessful. ( ) the patient will be started on IV fluids now. Otherwise, the patient was seen by ENT and recommended neurology consultation, dysphagia most likely secondary to ( ) dementia and Parkinson disease. Sinemet could not be started with the patient being n.p.o. Otherwise patient denied any complaints of chest pain or worsening short of breath. The patient is a poor historian due to underlying dementia. I did discuss with her daughter at the bedside in detail. Neurology has been consulted for further evaluation. Complete review of systems could not be obtained from the patient. CURRENT MEDICATIONS: Reviewed. PHYSICAL EXAMINATION: An 85 -year-old female lying in the bed. Awake, alert, oriented, x3. Appears to be in no apparent distress. VITALS: Blood pressure is 143/77, pulse 83, respirations 16, temperature afebrile, pulse ox 95% on 3 liters nasal cannula. HEENT: Atraumatic. Normocephalic. Neck is supple. No JVD. CARDIOVASCULAR: S1, S2 heard. No murmurs. No gallops. LUNGS: Bilateral air entry is present. Basilar crackles positive. Nonlabored breathing. ABDOMEN: Soft, nontender. Bowel sounds present. BLOWN FILM EXTRUSION OPERATOR: Awake, alert and oriented times one. Able to move all her extremities. EXTREMITIES: No edema. Pulses palpable bilaterally. No clubbing or cyanosis. PSYCHIATRY: Cooperative. LABORATORY DATA: Reviewed. WBC 11.0, hemoglobin 15.4, platelets 152. Sodium 114, potassium 3.1, chloride 98, bicarb is 41, BUN 39, creatinine 0.38, calcium 9.9. IMPRESSION: 1. Dysphagia most likely neuromuscular related with underlying delirium and dementia and Parkinson disease. Neurology has been consulted for further evaluation. 2. The patient pulled out NG tube. Currently n.p.o. and family wanting the PEG tube to be placed after neurology evaluation. 3. Acute on chronic hypoxic respiratory failure secondary to chronic obstructive pulmonary disease exacerbation, improving now. 4. Dementia. 5. Parkinson's disease. 6. Hypertension. 7. Medical debility and bedridden. 8. Failed barium swallow ( ) and aspiration. Currently n.p.o. 9. Deep venous thrombosis prophylaxis. 10. The patient has poor prognosis. DISCUSSION AND PLAN: 85 -year-old female admitted to the hospital for worsening shortness of breath. Breathing status improved now. Otherwise, the patient has significant dysphagia with failed swallow evaluation and barium swallow. Currently n.p.o. and continue with IV fluids, continue to monitor electrolytes. Neurology has been consulted for further evaluation. I discussed with the family regarding mental status and poor prognosis with the family in detail.
--- NOTE | 2016-05-07 15:47 | PN ---
DATE OF SERVICE: 05/06/2016 INTERVAL HISTORY: Ms. Pollock is an 85 -year-old female with known history of COPD exacerbation, was admitted to hospital with COPD exacerbation ( ). Breathing ( ) much improved now. Otherwise, the patient is still n.p.o. and failed swallow evaluation. Continued on IV fluids. Neurology recommended starting on Sinemet once the patient able to tolerate p.o. diet ( ) PEG tube placement. The family wants PEG tube to be placed and I did consult Dr. Watt for evaluation of the PEG tube placement. Otherwise, the patient remains on NPO now. We will continue to replace electrolytes and follow up closely. We will get the Solu-Medrol to 40 mg q.12. Complete review of systems could not be obtained from the patient. CURRENT MEDICATIONS: Reviewed. PHYSICAL EXAMINATION: An 85 -year-old female lying in the bed, awake, alert and oriented times one, appears to be in no apparent distress. VITALS: Blood pressure is 144/69, pulse is 60, respiration 16, temperature afebrile, pulse ox 96% on 3 L nasal cannula. HEENT: Atraumatic, normocephalic. Neck is supple. No JVD. CVS: S1, S2 heard. No murmurs, no gallop. LUNGS: Bilateral air entry is present. No wheezing. No crackles. Nonlabored breathing. ABDOMEN: Soft, nontender. Bowel sounds present. CENTRAL NERVOUS SYSTEM: Awake, alert, oriented x1. Able to move all her extremities. No focal deficit. EXTREMITIES: No edema. Pulses palpable bilaterally. ( ). No clubbing or cyanosis. PSYCHIATRIC: Cooperative. LABORATORY DATA: Reviewed. IMPRESSION: 1. Dysphagia, failed swallow evaluation with barium swallow and most likely neuromuscular in nature. Upon discussion with the family, the patient is being evaluated for PEG tube placement. We will consult general surgeon at this time. Continue with the IV fluids. 2. Acute chronic obstructive pulmonary disease exacerbation, currently ( ) have been reduced now and currently ( ) nasal cannula. 3. Dementia. 4. Parkinson's disease. 5. Medical debility and bedridden. 6. Hypertension. 7. Poor oral intake and dysphagia, with aspiration. 8. Deep venous thrombosis prophylaxis. 9. Prognosis poor. 10. FULL CODE. DISCUSSION AND PLAN: An 85 -year-old female admitted to the hospital with worsening short of breath and currently the patient is having dysphagia, failed swallow evaluation. Currently being evaluated for percutaneous endoscopic gastrostomy feeding tube placement. ( ) discussed with the family in detail. Spent more than 45 minutes in patient care and coordinating care. Further recommendations based on clinical course.
[2016-05-07 17:30] LABS: Glucose,Whole Blood 192 mg/dL (75-99)
--- NOTE | 2016-05-07 19:11 | P.GSCN ---
History of Present Illness Consult date: 05/07/16 Reason for Consult: Malnutrition History of present illness: We're asked see this patient for PEG tube placement. She has had very poor oral intake over the last 2 weeks per the family. She did have a feeding tube in last week but was never up to goal feeds. She has failed her bedside swallow evaluations. She had previously failed her modified barium swallow. The patient's family is concerned that the patient does not need a feeding tube in that she is in fact able to swallow. They do believe she is getting weaker as it relates to her poor nutritional status. Apparently they went through something very similar this with her father recently. Review of Systems ROS unobtainable: due to mental status Past Medical History Past Medical History: Heart Failure, COPD, Dementia, Hypertension, Musculoskeletal Disorder, Neurologic Disorder, Thyroid Disorder Additional Past Medical History / Comment(s): Pt recently admitted to [facility] On 04/22/16 with acute hypoxic respiratory failure, acute exacerbation of COPD likely from tracheobronchitis, CHF, acute metabolic encephalopathy. Other hx: Parkinsons Disease, hypothyroidism. History of Any Multi-Drug Resistant Organisms: None Reported Past Surgical History: Tonsillectomy Additional Past Surgical History / Comment(s): Right hip hemiarthroplasty. Past Anesthesia/Blood Transfusion Reactions: No Reported Reaction Past Psychological History: No Psychological Hx Reported Additional Psychological History / Comment(s): Pt resides at [facility]. She is nonambulatory. She is a mechanical lift to chair. She needs assist with all ADLs. Smoking Status: Former smoker Past Alcohol Use History: None Reported Past Drug Use History: None Reported - Past Family History Mother Family Medical History: Diabetes Mellitus Father Family Medical History: No Reported History Medications and Allergies Home Medications Medication Instructions Recorded Confirmed Type Memantine [Namenda] 10 mg PO BID 04/10/15 05/01/16 History Acetaminophen Tab [Tylenol] 650 mg PO Q4H PRN 04/22/16 05/01/16 History Ascorbic Acid [Vitamin C] 500 mg PO HS 04/22/16 05/01/16 History Biotin 250 mg PO DAILY 04/22/16 05/01/16 History Dermaseptin Ointment 1 applic TOPICAL TID 04/22/16 05/01/16 History Magnesium Oxide [Mag-Ox] 250 mg PO DAILY 04/22/16 05/01/16 History Multivitamins, Thera [Multivitamin] 1 tab PO HS 04/22/16 05/01/16 History [place]-3 Fatty Acids/Fish Oil [Fish 1 cap PO HS 04/22/16 05/01/16 History Oil 1,000 mg Softgel] Ubidecarenone [Co Q-10] 200 mg PO DAILY 04/22/16 05/01/16 History Zinc 50 mg PO DAILY 04/22/16 05/01/16 History guaiFENesin-DM 100-10MG/5ML 10 ml PO Q6H PRN 04/22/16 05/01/16 History [Robitussin DM] Budesonide-Formot 160-4.5 Mcg 2 puff INHALATION RT-BID 05/01/16 05/01/16 History [Symbicort 160-4.5 Mcg Inhaler] Ipratropium-Albuterol Nebulize 3 ml INHALATION RT-Q4H PRN 05/01/16 05/01/16 History [Duoneb 0.5 mg-3 mg/3 ml Soln] Ipratropium-Albuterol Nebulize 3 ml INHALATION RT-TID 05/01/16 05/01/16 History [Duoneb 0.5 mg-3 mg/3 ml Soln] predniSONE See Taper PO DAILY 05/01/16 05/01/16 History Allergies Allergy/AdvReac Type Severity Reaction Status Date / Time No Known Allergies Allergy Verified 05/01/16 03:59 Surgical - Exam Vital Signs Pulse 74 05/01/16 03:50 Physical exam: General: Elderly white female in no distress HEENT: Normocephalic, sclerae nonicteric Abdomen: Nontender, nondistended Extremities: No edema Neuro: Unable to speak well Results - Labs 05/07/16 06:45 05/07/16 06:45 Abnormal Lab Results - Last 24 Hours (Table) 05/06/16 05/07/16 05/07/16 Range/Units 23:14 05:35 06:45 Plt Count (150-450) k/uL Lymphocytes # (1.0-4.8) k/uL Sodium 154 H (137-145) mmol/L Potassium 3.0 L* (3.5-5.1) mmol/L Carbon Dioxide 40 H* (22-30) mmol/L BUN 34 H (7-17) mg/dL Creatinine 0.45 L (0.52-1.04) mg/dL Glucose 166 H (74-99) mg/dL POC Glucose (mg/dL) 170 H 185 H (75-99) mg/dL 05/07/16 05/07/16 05/07/16 Range/Units 06:45 11:31 17:26 Plt Count 100 L (150-450) k/uL Lymphocytes # 0.5 L (1.0-4.8) k/uL Sodium (137-145) mmol/L Potassium (3.5-5.1) mmol/L Carbon Dioxide (22-30) mmol/L BUN (7-17) mg/dL Creatinine (0.52-1.04) mg/dL Glucose (74-99) mg/dL POC Glucose (mg/dL) 143 H 192 H (75-99) mg/dL Diabetes panel 05/07/16 Range/Units 06:45 Sodium 154 H (137-145) mmol/L Potassium 3.0 L* (3.5-5.1) mmol/L Chloride 106 (98-107) mmol/L Carbon Dioxide 40 H* (22-30) mmol/L BUN 34 H (7-17) mg/dL Creatinine 0.45 L (0.52-1.04) mg/dL Glucose 166 H (74-99) mg/dL Calcium 10.0 (8.4-10.2) mg/dL Calcium panel 05/07/16 Range/Units 06:45 Calcium 10.0 (8.4-10.2) mg/dL Pituitary panel 05/07/16 Range/Units 06:45 Sodium 154 H (137-145) mmol/L Potassium 3.0 L* (3.5-5.1) mmol/L Chloride 106 (98-107) mmol/L Carbon Dioxide 40 H* (22-30) mmol/L BUN 34 H (7-17) mg/dL Creatinine 0.45 L (0.52-1.04) mg/dL Glucose 166 H (74-99) mg/dL Calcium 10.0 (8.4-10.2) mg/dL Adrenal panel 05/07/16 Range/Units 06:45 Sodium 154 H (137-145) mmol/L Potassium 3.0 L* (3.5-5.1) mmol/L Chloride 106 (98-107) mmol/L Carbon Dioxide 40 H* (22-30) mmol/L BUN 34 H (7-17) mg/dL Creatinine 0.45 L (0.52-1.04) mg/dL Glucose 166 H (74-99) mg/dL Calcium 10.0 (8.4-10.2) mg/dL Assessment and Plan (1) Malnutrition Narrative/Plan: The patient's family plans to discuss this further with the admitting physicians. We'll also try to touch base with them. Will remain on standby for possible PEG tube placement if needed. The risks of the PEG tube were discussed with the family. These were noted to include but not limited to bleeding, infection, bowel injury, and anesthesia-related complications Status: Acute
[2016-05-08] MEDS: INSULIN LISPRO (humaLOG) 300 UNIT/3 ML VIAL SQ SCH ×4 (00:22→20:37)
[2016-05-08 00:28] LABS: Glucose,Whole Blood 186 mg/dL (75-99)
[2016-05-08] MEDS: DEXTROSE 5% IN WATER 1,000 ML with POTASSIUM CHLORIDE 40 MEQ IV SCH ×2 (01:30→11:40)
[2016-05-08] MEDS: POTASSIUM CHLORIDE 10 MEQ in WATER FOR INJECTION 1 100ML.BAG IVPB SCH ×2 (04:30→06:08)
[2016-05-08 06:02] LABS: Glucose,Whole Blood 174 mg/dL (75-99)
[2016-05-08] MEDS: IPRATROPIUM-ALBUTEROL 3 ML NEB INHALATION SCH ×4 (07:06→21:11)
[2016-05-08] MEDS: BUDESONIDE 1 MG/2 ML NEBU INHALATION SCH ×2 (07:06→21:10)
[2016-05-08 07:53] LABS: Basophils % (A) 0 %; CH 30.6; CHCM 31.8; Eosinophils % (A) 1 %; HCT 44.6 % (34.0-46.0); HDW 2.28; HGB 14.3 gm/dL (11.4-16.0); Luc # (Auto) 0.02; Luc % (Auto) 0; Lymphocytes # (A) 0.6 k/uL (1.0-4.8); Lymphocytes % (A) 7 %; MCHC 32.1 g/dL (31.0-37.0); MCV 96.7 fL (80.0-100.0); Mean Platelet Volume 7.2; Monocytes # (A) 0.2 k/uL (0-1.0); Monocytes % (A) 2 %; Neutrophils # (A) 7.3 k/uL (1.3-7.7); Neutrophils % (A) 90 %; RBC 4.61 m/uL (3.80-5.40); RDW 11.9 % (11.5-15.5); WBC 8.1 k/uL (3.8-10.6); WBC (Perox) 8.91
[2016-05-08 08:03] LABS: Anion Gap 7 mmol/L; Blood Urea Nitrogen 34 mg/dL (7-17); Calcium 9.8 mg/dL (8.4-10.2); Carbon Dioxide 36 mmol/L (22-30); Chloride 109 mmol/L (98-107); Glucose 141 mg/dL (74-99); Non-African American GFR(MDRD) >60 (>60 ml/min/1.73 sqM); Potassium 4.9 mmol/L (3.5-5.1); Sodium 152 mmol/L (137-145)
[2016-05-08 08:47] LABS: Manual Review Performed
[2016-05-08 08:48] LABS: RBC Morphology Normal
--- NOTE | 2016-05-08 09:47 | PN ---
DATE OF SERVICE: 05/07/2016 INTERVAL HISTORY: Ms. Pollock is an 85-year-old female with known history of COPD with recent exacerbation admitted to the hospital with worsening short of breath. Otherwise, the patient is also having difficulty breathing. Also has dysphagia mostly secondary to neuromuscular related. Currently, patient is n.p.o. and failed swallow evaluation at bedside as well as barium swallow. Otherwise, the patient seems very dehydrated today and pulled out her IV female line. Upon family request, I consulted General Surgery, Dr. Watt for evaluation for PEG tube placement. Otherwise, the patient is a poor historian. Awake, alert, could not provide any history. Patient does have underlying dementia. No acute overnight issues. Complete review of systems could not be obtained from the patient. CURRENT MEDICATIONS: Reviewed. PHYSICAL EXAMINATION: An 85-year-old female, lying in the bed, awake, alert. Could not provide any history. Awake, alert, oriented x1. VITALS: Blood pressure is 136/64, pulse is 60, respirations 16, temperature afebrile, pulse ox 98% on room air. HEENT: Atraumatic, normocephalic. Neck is supple. No JVD. CVS EXAM: S1, S2 heard. No murmurs. No gallop. LUNGS: Bilateral air entry is present. No wheezing, no crackles. ABDOMEN: Soft, nontender. Bowel sounds are present. COSTUME DRAPER: Awake, alert, oriented x1. Able to move all her extremities. EXTREMITIES: No edema. Pulses palpable bilaterally. No clubbing or cyanosis. PSYCHIATRIC: Cooperative. LABORATORY DATA: Sodium 154, potassium 3.0, chloride 106, bicarb is 40, BUN 34, creatinine 0.45. WBC 8.1, hemoglobin 14.1, platelets 100. Calcium 10.0. IMPRESSION: 1. Dysphagia, failed swallow evaluation with barium swallow. This is most likely secondary to neuromuscular in nature. Patient was evaluated by ENT and Neurology as well. Patient also pulled out IV line today. Patient will be continued on IV fluids. General Surgery has been consulted for possible PEG tube evaluation as per family's request. I did explain to the patient's daughter that due to underlying dementia and multiple other medical problems. PEG tube placement is not a good choice for nutrition at this time. 2. Dehydration, volume depletion. 3. Hypernatremia secondary to dehydration. 4. Acute chronic obstructive pulmonary disease exacerbation, improved. 5. Dementia. 6. Parkinson's disease. 7. Medical debility and bedridden. 8. Hypertension, patient is currently on Catapres patch. 9. Deep venous thrombosis prophylaxis. 10. Prognosis poor. 11. FULL CODE. DISCUSSION AND PLAN: An 85-year-old female admitted to the hospital with worsening short of breath and dysphagia. The patient failed barium swallow evaluation and NG tube was placed, but patient pulled out NG tube x3. Patient pulled out IV line as well today. Discussed with her daughter in detail regarding her medical condition and upon her family ( ) towards PEG tube placement I did consult General Surgery for further evaluation. Prognosis poor. Further recommendations based on the clinical course.
[2016-05-08] MEDS: HEPARIN SODIUM,PORCINE 5,000 UNIT/ML 1 ML VIAL SQ SCH ×2 (10:40→22:36)
[2016-05-08] MEDS: methylPREDNISolone SOD SUCCI 40 MG/ML 1 ML VIAL IV SCH ×2 (10:40→22:36)
[2016-05-08 11:58] LABS: Glucose,Whole Blood 123 mg/dL (75-99)
--- NOTE | 2016-05-08 14:21 | FL ---
MODIFIED SWALLOW / DEGLUTITION STUDY DATE OF EXAM: 05/08/2016 2:07 PM CLINICAL HISTORY: 85 year-old female history of Parkinson's with prior exams showing aspiration. This is a follow-up study. TECHNIQUE: Deglutition study is performed utilizing honey thick liquid barium and barium thick apple sauce. COMPARISON: 05/02/2016 FINDINGS: Small quantities of honey thickened liquid were first tested and show ewa aspiration. Pureed was al so tested and also shows aspiration. The study was terminated. IMPRESSION: Exam terminated after ewa aspiration seen with honey thickened liquid and pureed consistencies. Ple ase refer to speech therapist notes for further details if necessary.
--- NOTE | 2016-05-08 16:44 | P.PN ---
Subjective Principal diagnosis: Malnutrition Patient tried another modified barium swallow today and failed that. She is lucid. Denies abdominal pain. Objective - Vital Signs Vital signs: Vital Signs Temp 97.7 F 05/08/16 07:00 Pulse 82 05/08/16 11:12 Resp 16 05/08/16 07:00 BP 159/69 05/08/16 07:00 Pulse Ox 81 L 05/08/16 07:00 Intake & Output 05/07/16 05/08/16 05/08/16 18:59 06:59 18:59 Intake Total 400 875 Balance 400 875 Weight 69.5 kg 68 kg Intake: IV 400 675 .9 saline 400 Dextrose 5% in Water 1, 675 000 ml @ 75 mls/hr IV . [id number] ERIC with Potassium Chloride 40 meq Rx#:[id number] Intake, IV Titration 200 Amount Potassium Chloride 10 meq 200 In Water For Injection 1 100ml.bag @ 100 mls/hr IVPB Q1H ERIC Rx#: [id number] Other: Voiding Method Diaper Diaper Incontinent Incontinent # Voids 1 3 1 - Exam Abdomen: Soft, nontender, nondistended - Labs CBC & Chem 7: 05/08/16 07:26 05/08/16 07:26 Labs: Abnormal Lab Results - Last 24 Hours (Table) 05/07/16 05/07/16 05/08/16 Range/Units 17:26 18:49 00:21 Plt Count (150-450) k/uL Lymphocytes # (1.0-4.8) k/uL Sodium (137-145) mmol/L Potassium 3.4 L (3.5-5.1) mmol/L Chloride (98-107) mmol/L Carbon Dioxide (22-30) mmol/L BUN (7-17) mg/dL Creatinine (0.52-1.04) mg/dL Glucose (74-99) mg/dL POC Glucose (mg/dL) 192 H 186 H (75-99) mg/dL 05/08/16 05/08/16 05/08/16 Range/Units 05:59 07:26 07:26 Plt Count 84 L (150-450) k/uL Lymphocytes # 0.6 L (1.0-4.8) k/uL Sodium 152 H (137-145) mmol/L Potassium (3.5-5.1) mmol/L Chloride 109 H (98-107) mmol/L Carbon Dioxide 36 H (22-30) mmol/L BUN 34 H (7-17) mg/dL Creatinine 0.36 L (0.52-1.04) mg/dL Glucose 141 H (74-99) mg/dL POC Glucose (mg/dL) 174 H (75-99) mg/dL 05/08/16 Range/Units 11:54 Plt Count (150-450) k/uL Lymphocytes # (1.0-4.8) k/uL Sodium (137-145) mmol/L Potassium (3.5-5.1) mmol/L Chloride (98-107) mmol/L Carbon Dioxide (22-30) mmol/L BUN (7-17) mg/dL Creatinine (0.52-1.04) mg/dL Glucose (74-99) mg/dL POC Glucose (mg/dL) 123 H (75-99) mg/dL Assessment and Plan (1) Malnutrition Narrative/Plan: Patient's daughter by with the patient present discussed the options once again. They are at this time agreeable to PEG tube placement. The daughter plans to discuss this further with her brother but would like me to go ahead and schedule. The risks of bleeding, infection, bowel injury, respiratory and cardiac complications were discussed. They understand and wish for us to proceed. Status: Acute
[2016-05-08 17:20] LABS: Glucose,Whole Blood 219 mg/dL (75-99)
[2016-05-08] MEDS: NEUPRO 2 MG/24 HR TRANSDERM SCH (17:27)
[2016-05-09 00:10] LABS: Glucose,Whole Blood 178 mg/dL (75-99)
[2016-05-09] MEDS: INSULIN LISPRO (humaLOG) 300 UNIT/3 ML VIAL SQ SCH ×4 (00:36→18:18)
[2016-05-09 06:09] LABS: Glucose,Whole Blood 172 mg/dL (75-99)
[2016-05-09 07:04] LABS: Basophils % (A) 0 %; CH 30.6; CHCM 31.8; Eosinophils % (A) 0 %; HCT 42.8 % (34.0-46.0); HDW 2.28; HGB 13.7 gm/dL (11.4-16.0); Luc # (Auto) 0.02; Luc % (Auto) 0; Lymphocytes # (A) 0.4 k/uL (1.0-4.8); Lymphocytes % (A) 6 %; MCH 30.9 pg (25.0-35.0); MCV 96.4 fL (80.0-100.0); Mean Platelet Volume 6.9; Monocytes # (A) 0.1 k/uL (0-1.0); Monocytes % (A) 2 %; Neutrophils # (A) 6.4 k/uL (1.3-7.7); Neutrophils % (A) 92 %; RBC 4.44 m/uL (3.80-5.40); RDW 11.8 % (11.5-15.5); WBC 6.9 k/uL (3.8-10.6); WBC (Perox) 7.53
[2016-05-09 07:51] LABS: Anion Gap 7 mmol/L; Blood Urea Nitrogen 28 mg/dL (7-17); Calcium 9.6 mg/dL (8.4-10.2); Carbon Dioxide 33 mmol/L (22-30); Chloride 107 mmol/L (98-107); Glucose 193 mg/dL (74-99); Non-African American GFR(MDRD) >60 (>60 ml/min/1.73 sqM); Potassium 4.5 mmol/L (3.5-5.1); Sodium 147 mmol/L (137-145)
[2016-05-09] MEDS: BUDESONIDE 1 MG/2 ML NEBU INHALATION SCH ×2 (08:16→19:55)
[2016-05-09] MEDS: IPRATROPIUM-ALBUTEROL 3 ML NEB INHALATION SCH ×4 (08:16→19:55)
[2016-05-09 09:11] LABS: INR 1.1 (<1.1); Partial Thromboplastin Time 23.1 sec (22.0-30.0); Prothrombin Time 11.1 sec (9.0-12.0)
[2016-05-09] MEDS: HEPARIN SODIUM,PORCINE 5,000 UNIT/ML 1 ML VIAL SQ SCH ×2 (10:10→20:44)
[2016-05-09] MEDS: methylPREDNISolone SOD SUCCI 40 MG/ML 1 ML VIAL IV SCH ×2 (10:15→20:43)
--- NOTE | 2016-05-09 10:22 | PN ---
DATE OF SERVICE: 05/08/2016 INTERVAL HISTORY: Ms. Pollock is an 85-year-old female with a known history of COPD, dementia, Parkinson's disease and multiple other medical problems, admitted to the hospital with worsening short of breath, and is being treated for acute COPD exacerbation. Her breathing status is much improved now. Otherwise, patient has dysphagia since admission. This is most likely secondary to neuromuscular related. Patient underwent barium swallow evaluation and bedside swallow evaluation and was seen by Speech for swallow evaluation multiple times as per the family's request. Patient was placed on NG tube which patient has pulled 3 times. Today patient had a barium swallow evaluation done again, the second time. Patient's daughter wants her to be placed on PEG tube, currently patient is scheduled for PEG tube placement for tomorrow morning. Otherwise, the patient's breathing status is much improved now. Patient is more awake. Patient is oriented and tries to speak, but patient does have dysarthria. Sodium level improved to 152 today. Patient is being currently continued on D5 water at 75 mL/h. Chest x-ray yesterday showed no cardiopulmonary process. Complete review of systems could not be obtained from the patient. CURRENT MEDICATIONS: DuoNeb, Pulmicort, ceftriaxone, clonidine, Catapres patch, potassium chloride, heparin subQ, Humalog, Solu-Medrol 40 q.12, sodium chloride flush. PHYSICAL EXAMINATION: An 85-year-old female, lying in bed. Awake, alert, oriented x1 to 2, could not provide any history, in no apparent distress. VITALS: Blood pressure is 157/69, pulse is 65, respirations 18, temperature afebrile, pulse ox 95% on 2 L nasal cannula. HEENT: Atraumatic, normocephalic. Neck is supple. No JVD. CVS EXAM: S1, S2 heard. No murmur, no rub. LUNGS: Bilateral air entry is present. No wheezing. No crackles, nonlabored breathing, diminished breath sounds basally. Abdomen is soft, nontender, bowel sounds present. BEADING MACHINE OPERATOR: Awake, alert, oriented x1 to 2. Able to move her extremities. No focal deficit. EXTREMITIES: No edema, pulses palpable bilaterally. No clubbing or cyanosis. PSYCHIATRY: Could not be assessed completely. LABORATORY DATA: WBC is 81, hemoglobin is 14.3, platelets 84. Sodium 152, potassium 4.9, chloride 109, bicarb is 36, BUN 34, creatinine 0.36, calcium 9.8, blood sugar is fairly controlled. Barium swallow exam terminated after ewa aspiration seen with honey-thickened liquid and pureed consistencies. IMPRESSION: 1. Dysphagia, failed swallow evaluation multiple times including barium swallow twice. Her dysphagia is most likely secondary to neuromuscular in nature with underlying dementia and Parkinson's disease. Neurology and the ENT have seen the patient. Neurology recommends Sinemet once patient has access for feeding. even though PEG tube placement in a patient with dementia does not change mortality and morbidity and family insisting on placing the PEG tube and agrees for the PEG tube placement for tomorrow. Dr. Watt is following this patient. Risks and benefits have been discussed in detail with her daughter. Today, patient's daughter wants the patient to be seen by ethics team. Will consult transplant case manager and involve ethics committee at this time. Patient will be discussed further regarding a PEG tube placement and if she wants this consult to be done, it has to be done before the PEG tube placement or any surgical procedure. Otherwise, the patient is scheduled for PEG tube placement for tomorrow morning. Discussed in length with the patient's daughter. 2. Dehydration volume depletion and with hyponatremia, improved with D5 water IV. 3. Acute chronic obstructive pulmonary disease exacerbation on admission, improved now, currently on tapered steroid dose. 4. Dementia. 5. Parkinson's disease. 6. Medical debility and bedridden. 7. Hypertension. Patient is not able to take pills, currently on Catapres patch. 8. Poor prognosis. 9. Deep venous thrombosis prophylaxis with heparin subQ. 10. The patient is a FULL CODE at this time. DISCUSSION AND PLAN: Patient will be continued on IV fluids, continue on breathing treatments and taper the steroids. Will follow up sodium level. The patient failed swallow evaluation multiple times. Currently undergoing PEG tube placement ambulatory placement tomorrow a.m. Patent cannot communicate but seems able to understand and patient's daughter is also in agreement with PEG tube placement. Will continue the current management. Prognosis is poor. Further recommendations based on the clinical course. Discussed multiple times with the patient's family and her daughter. CHE
[2016-05-09 11:24] LABS: Glucose,Whole Blood 147 mg/dL (75-99)
--- NOTE | 2016-05-09 11:51 | P.PN ---
Progress Note - Text Patient was scheduled for PEG tube placement today. Apparently per the hospitalist service the patient's daughter requested a ethics evaluation last night. His appears to be more related to a request for transfer of the patient than the issues surrounding the PEG tube placement. I was notified that the PEG tube would be on hold until the ethics evaluation could be completed as there could be some impact on the decision making regarding the procedure. I will remain on standby for feeding tube placement if needed. Will tentatively plan EGD with PEG tube placement tomorrow at approximately 1 PM if consent is agreed upon by all parties. Consider PPN today if decision for ongoing supportive care is agreed upon.
[2016-05-09] MEDS ORDERED: MVI, ADULT NO.4 WITH VIT K 10 ML, TRACE (CONC-1ML/DOSE) 1 ML in AMINO ACID 4.25%-D10W+L... IV ONE ×3 (15:00)
[2016-05-09 16:54] LABS: Glucose,Whole Blood 245 mg/dL (75-99)
[2016-05-09 17:07] LABS: ALT 45 U/L (9-52); AST 13 U/L (14-36); Alkaline Phosphatase 77 U/L (38-126); Anion Gap 6 mmol/L; Blood Urea Nitrogen 23 mg/dL (7-17); Calcium 9.5 mg/dL (8.4-10.2); Carbon Dioxide 32 mmol/L (22-30); Chloride 103 mmol/L (98-107); Glucose 231 mg/dL (74-99); Magnesium 2.1 mg/dL (1.6-2.3); Non-African American GFR(MDRD) >60 (>60 ml/min/1.73 sqM); Phosphorous 2.9 mg/dL (2.5-4.5); Potassium 4.6 mmol/L (3.5-5.1); Sodium 141 mmol/L (137-145); Total Bilirubin 0.7 mg/dL (0.2-1.3); Total Protein 5.2 g/dL (6.3-8.2); Triglycerides 143 mg/dL (<150)
[2016-05-09] MEDS: FAT EMULSION 20% 250 ML in EMPTY BAG 1 BAG IV SCH (18:19)
[2016-05-09] MEDS: NEUPRO 2 MG/24 HR TRANSDERM SCH (18:19)
--- NOTE | 2016-05-09 19:08 | P.PN ---
Subjective 85-year-old female was recently discharged from the hospital after being treated for an acute exacerbation of heart failure comes in to the hospital from medical [place] after patient was noted to be more lethargic in the middle of the night. Patient was hospitalized for a week for an acute bronchitis causing acute exacerbation of COPD. Patient had a weak cough hence required prolonged hospitalization at that time. Patient required minimal amounts of oxygen for comfort. Patient was however discharge on 2 L supplemental oxygen. On the day of discharge patient was able to communicate was able to breathe normally and doing well. However 5-6 hours upon discharge she apparently got more lethargic unsure if patient got hypoxic if oxygen came off her. Patient was started on BiPAP this morning the selective care unit and improved rapidly. Patient continues to have a poor cough even at this time intermittently Patient also noted to be breathing very shallow. 05/02/2016 Patient underwent a fluoroscopic study to evaluate diaphragmatic paralysis. There is some question regarding underlying parkinsonism. Patient also had an episode of choking. Patient underwent a modified barium swallow and had significant amount of penetration. Intermittent hospital course Patient apparently has not tolerated NG tube treatment. There has been some discussion about a PEG tube placement. However due to misunderstanding and ethics consult was placed. Patient apparently was supposed to undergo a PEG tube placement however that was held up. I had a prolonged discussion with the family and another family member who was admitted bedside that my previous discussion before I went off service was that patient has poor prognosis and that feeding tubes do not prolong patient life and not necessarily require them additional procedures. However, apparently the family is adamant that a PEG be placed. It is also my understanding at that time patient was refusing any IVs or NG tube placements at that time.. Currently there is a long discussion , in questioning in regards to why this tube was in place today. I tried to re-explained the situation that these patients to not do well even if the PEG tube is placed that patient's end up having episodes of aspiration and this does not necessarily decrease the morbidity. . However family appears to be adamant that this be done. PEG tube will be placed. General surgery has evaluated the patient. Patient appears to be weak today does not answer many questions. States that she wants to leave. Objective - Vital Signs Vital signs: Vital Signs Temp 97.7 F 05/09/16 14:54 Pulse 74 05/09/16 16:20 Resp 16 01/25/17 14:54 BP 129/61 05/09/16 14:54 Pulse Ox 99 05/09/16 14:54 Intake & Output 05/08/16 05/09/16 05/09/16 18:59 06:59 18:59 Intake Total 675 Balance 675 Weight 68 kg 68 kg Intake: IV 675 Dextrose 5% in Water 1, 675 000 ml @ 75 mls/hr IV . [id number] ERIC with Potassium Chloride 40 meq Rx#:[id number] Other: Voiding Method Diaper Diaper Diaper Incontinent Incontinent Incontinent # Voids 1 2 1 - Exam gen appearance flat affect is able to answer some questions Lungs wheezing appreciated transmitted from the hypopharynx Heart regular rate and rhythm systolic murmur is appreciated at the aortic region Abdomen is soft nontender no organomegaly bowel sounds are intact Lower extremities no edema is appreciated Neurologically moves all 4 extremities - Labs CBC & Chem 7: 05/09/16 06:47 05/09/16 15:54 Labs: Abnormal Lab Results - Last 24 Hours (Table) 05/08/16 05/09/16 05/09/16 Range/Units 23:53 06:03 06:45 Plt Count (150-450) k/uL Lymphocytes # (1.0-4.8) k/uL Sodium 147 H (137-145) mmol/L Carbon Dioxide 33 H (22-30) mmol/L BUN 28 H (7-17) mg/dL Creatinine 0.41 L (0.52-1.04) mg/dL Glucose 193 H (74-99) mg/dL POC Glucose (mg/dL) 178 H 172 H (75-99) mg/dL AST (14-36) U/L Total Protein (6.3-8.2) g/dL Albumin (3.5-5.0) g/dL 05/09/16 05/09/16 05/09/16 Range/Units 06:47 11:20 15:54 Plt Count 68 L (150-450) k/uL Lymphocytes # 0.4 L (1.0-4.8) k/uL Sodium (137-145) mmol/L Carbon Dioxide 32 H (22-30) mmol/L BUN 23 H (7-17) mg/dL Creatinine 0.45 L (0.52-1.04) mg/dL Glucose 231 H (74-99) mg/dL POC Glucose (mg/dL) 147 H (75-99) mg/dL AST 13 L (14-36) U/L Total Protein 5.2 L (6.3-8.2) g/dL Albumin 2.8 L (3.5-5.0) g/dL 05/09/16 Range/Units 16:52 Plt Count (150-450) k/uL Lymphocytes # (1.0-4.8) k/uL Sodium (137-145) mmol/L Carbon Dioxide (22-30) mmol/L BUN (7-17) mg/dL Creatinine (0.52-1.04) mg/dL Glucose (74-99) mg/dL POC Glucose (mg/dL) 245 H (75-99) mg/dL AST (14-36) U/L Total Protein (6.3-8.2) g/dL Albumin (3.5-5.0) g/dL Assessment and Plan Plan: Acute on chronic hypoxic respiratory failure #2 chronic hypercapnic respiratory failure #3 history of COPD with an acute exacerbation #4 dementia #5 hypertension #6 debility currently a resident of long term #7 dysphagia #8 parkinsonism? Plan I spent over 45 minutes and the patient's family meeting explaining some of my recommendations and answering their questions. It appears there was a lot of miscommunication with the patient's daughter. I have answered this plan on my note does reflect that. However it appears there is still some confusion in regards to why a PEG tube was initially not offered I tried to explain that it's that studies are shown to patients do not necessarily benefit from a feeding tube when they're bedridden and have some degree of dementia. However with the current decision being made a PEG tube will be placed. It PPN was started as patient has been not fed a few days. As goals of care are to feed the patient at this time. I did discuss there is some risks of patient undergoing anesthesia this will also be addressed by the anesthesiologist. A PEG will be placed tomorrow and thereafter disposition will be discussed. Again prognosis appears to be poor
[2016-05-09] MEDS: DEXTROSE 5% IN WATER 1,000 ML with POTASSIUM CHLORIDE 40 MEQ IV SCH (21:58)
[2016-05-10 00:06] LABS: Glucose,Whole Blood 222 mg/dL (75-99)
[2016-05-10] MEDS: INSULIN LISPRO (humaLOG) 300 UNIT/3 ML VIAL SQ SCH ×4 (00:28→17:42)
[2016-05-10 06:14] LABS: Glucose,Whole Blood 306 mg/dL (75-99)
[2016-05-10] MEDS: BUDESONIDE 1 MG/2 ML NEBU INHALATION SCH ×2 (07:50→20:25)
[2016-05-10] MEDS: IPRATROPIUM-ALBUTEROL 3 ML NEB INHALATION SCH ×4 (07:50→20:25)
[2016-05-10 08:47] LABS: Ionized Calcium 5.7 mg/dL (4.5-5.3)
[2016-05-10] MEDS: HEPARIN SODIUM,PORCINE 5,000 UNIT/ML 1 ML VIAL SQ SCH ×2 (09:03→21:30)
[2016-05-10] MEDS: methylPREDNISolone SOD SUCCI 40 MG/ML 1 ML VIAL IV SCH (09:06)
[2016-05-10 09:11] LABS: Anion Gap 6 mmol/L; Blood Urea Nitrogen 25 mg/dL (7-17); Calcium 9.5 mg/dL (8.4-10.2); Carbon Dioxide 30 mmol/L (22-30); Chloride 104 mmol/L (98-107); Glucose 262 mg/dL (74-99); Magnesium 2.3 mg/dL (1.6-2.3); Non-African American GFR(MDRD) >60 (>60 ml/min/1.73 sqM); Potassium 4.7 mmol/L (3.5-5.1); Sodium 140 mmol/L (137-145)
[2016-05-10] MEDS ORDERED: [UNRECOGNIZED DRUG - REMARK] IV SCH ×4 (10:00)
[2016-05-10 11:34] LABS: Glucose,Whole Blood 121 mg/dL (75-99)
[2016-05-10] MEDS: 1: MVI, ADULT NO.4 WITH VIT K 10 ML, TRACE (CONC-1ML/DOSE) 1 ML in AMINO ACID 4.25%-D10W IV SCH ×6 (11:35→21:31)
[2016-05-10] MEDS ORDERED: LIDOCAINE 1% 20 ML VIAL (10MG/ML) FOR IV START SQ ONE (14:00)
[2016-05-10] MEDS ORDERED: PROPOFOL 10 MG/ML 20 ML VIAL IV ONE (14:02)
--- NOTE | 2016-05-10 14:55 | P.PCN ---
Date of Procedure: 05/10/16 Procedure(s) Performed: PREOPERATIVE DIAGNOSIS: Malnutrition POSTOPERATIVE DIAGNOSIS: Same PROCEDURE: EGD with PEG tube placement SURGEON: Alysa EBL: Minimal ANESTHESIA: Sedation COMPLICATIONS: None OPERATIVE PROCEDURE: The patient was placed in the supine position on the endoscopy table. The patient was sedated per anesthesia that time. The Olympus gastroscope was inserted into the oropharynx and passed under direct visualization to the region of the duodenum. No obstruction was seen. The pylorus was widely patent. The stomach was carefully inspected. The stomach was fully insufflated with air. The abdominal wall was inspected. The light was seen shining through the abdominal wall in the left upper quadrant. This site was chosen for PEG tube placement. The area was prepped in the usual sterile fashion. This area was then localized with lidocaine. A small vertical incision was made using the scalpel. The Seldinger needle was advanced into the lumen of the stomach the wire was advanced. The wire was grasped with an endoscopic snare. The wire was pulled through the oropharynx. The catheter was then threaded over the guidewire and the guidewire and catheter were pulled anteriorly until the hub of the PEG tube catheter was seated against the anterior wall the stomach. The circular bolster was applied and tightened down. The endoscope was then readvanced into the stomach. There was no evidence of any bleeding and there was appropriate tightness on the bolster. The catheter was cut appropriately. The dual port feeding adapter was applied. DISPOSITION: Stable to recovery room
[2016-05-10 17:29] LABS: Glucose,Whole Blood 240 mg/dL (75-99)
[2016-05-10] MEDS: FAT EMULSION 20% 250 ML in EMPTY BAG 1 BAG IV SCH (17:41)
[2016-05-10] MEDS: NEUPRO 2 MG/24 HR TRANSDERM SCH (17:42)
--- NOTE | 2016-05-10 19:37 | P.PN ---
Subjective 85-year-old female was recently discharged from the hospital after being treated for an acute exacerbation of heart failure comes in to the hospital from medical [place] after patient was noted to be more lethargic in the middle of the night. Patient was hospitalized for a week for an acute bronchitis causing acute exacerbation of COPD. Patient had a weak cough hence required prolonged hospitalization at that time. Patient required minimal amounts of oxygen for comfort. Patient was however discharge on 2 L supplemental oxygen. On the day of discharge patient was able to communicate was able to breathe normally and doing well. However 5-6 hours upon discharge she apparently got more lethargic unsure if patient got hypoxic if oxygen came off her. Patient was started on BiPAP this morning the selective care unit and improved rapidly. Patient continues to have a poor cough even at this time intermittently Patient also noted to be breathing very shallow. 05/02/2016 Patient underwent a fluoroscopic study to evaluate diaphragmatic paralysis. There is some question regarding underlying parkinsonism. Patient also had an episode of choking. Patient underwent a modified barium swallow and had significant amount of penetration. Intermittent hospital course Patient apparently has not tolerated NG tube treatment. There has been some discussion about a PEG tube placement. However due to misunderstanding and ethics consult was placed. Patient apparently was supposed to undergo a PEG tube placement however that was held up. I had a prolonged discussion with the family and another family member who was admitted bedside that my previous discussion before I went off service was that patient has poor prognosis and that feeding tubes do not prolong patient life and not necessarily require them additional procedures. However, apparently the family is adamant that a PEG be placed. It is also my understanding at that time patient was refusing any IVs or NG tube placements at that time.. Currently there is a long discussion , in questioning in regards to why this tube was in place today. I tried to re-explained the situation that these patients to not do well even if the PEG tube is placed that patient's end up having episodes of aspiration and this does not necessarily decrease the morbidity. . However family appears to be adamant that this be done. PEG tube will be placed. General surgery has evaluated the patient. Patient appears to be weak today does not answer many questions. States that she wants to leave. 05/10/16 Pt apparently pulled her IV out again this am. Discussed with the family at bedside. Pt verbalizes to understanding that she will have this procedure. pt is more awake. No new other complaints. Objective - Vital Signs Vital signs: Vital Signs Temp 97.8 F 05/10/16 15:00 Pulse 78 05/10/16 15:36 Resp 16 05/10/16 15:00 BP 148/65 05/10/16 15:00 Pulse Ox 100 05/10/16 15:00 Intake & Output 05/10/16 05/10/16 05/11/16 06:59 18:59 06:59 Intake Total 910.667 Balance 910.667 Weight 63.5 kg 63.5 kg Intake: IV 284 Fat Emulsion 20% 250 ml 84 In Empty Bag 1 bag @ 21 mls/hr IV DAILY@1800 [facility] Rx#:[id number] Mvi, Adult No.4 with Vit 200 K 10 ml Trace (Conc-1Ml/ Dose) 1 ml In Amino Acid 4.25%-D10w+Lytes*E* 1,000 ml @ 50 mls/hr IV . [id number] [facility] Rx#:[id number] Intake, IV Titration 626.667 Amount Mvi, Adult No.4 with Vit 626.667 K 10 ml Trace (Conc-1Ml/ Dose) 1 ml In Amino Acid 4.25%-D10w+Lytes*E* 1,000 ml @ 50 mls/hr IV . [id number] [facility] Rx#:[id number] Other: Voiding Method Diaper Diaper Incontinent Incontinent # Voids 1 2 - Exam gen appearance flat affect is able to answer some questions Lungs wheezing appreciated transmitted from the hypopharynx, improved. Heart regular rate and rhythm systolic murmur is appreciated at the aortic region Abdomen is soft nontender no organomegaly bowel sounds are intact Lower extremities no edema is appreciated Neurologically moves all 4 extremities - Labs CBC & Chem 7: 05/09/16 06:47 05/10/16 07:57 Labs: Abnormal Lab Results - Last 24 Hours (Table) 05/10/16 05/10/16 05/10/16 Range/Units 00:04 06:11 07:57 BUN 25 H (7-17) mg/dL Creatinine 0.36 L (0.52-1.04) mg/dL Glucose 262 H (74-99) mg/dL POC Glucose (mg/dL) 222 H 306 H (75-99) mg/dL Ionized Calcium Jacobo 5.7 H (4.5-5.3) mg/dL Albumin 2.8 L (3.5-5.0) g/dL 05/10/16 05/10/16 Range/Units 11:31 17:26 BUN (7-17) mg/dL Creatinine (0.52-1.04) mg/dL Glucose (74-99) mg/dL POC Glucose (mg/dL) 121 H 240 H (75-99) mg/dL Ionized Calcium Jacobo (4.5-5.3) mg/dL Albumin (3.5-5.0) g/dL Assessment and Plan Plan: Acute on chronic hypoxic respiratory failure #2 chronic hypercapnic respiratory failure #3 history of COPD with an acute exacerbation #4 dementia #5 hypertension #6 debility currently a resident of shelter #7 dysphagia #8 parkinsonism? Plan Clear for PEG tube placement Continue PPN. Will need to moniter for refeeding syndrome. Start tube feeding when cleared by Dr Watt. Prognosis is poor. D/c rocephin, steroids.
[2016-05-11 00:31] LABS: Glucose,Whole Blood 239 mg/dL (75-99)
[2016-05-11] MEDS: INSULIN LISPRO (humaLOG) 300 UNIT/3 ML VIAL SQ SCH ×4 (00:41→17:34)
[2016-05-11] MEDS: 1: MVI, ADULT NO.4 WITH VIT K 10 ML, TRACE (CONC-1ML/DOSE) 1 ML in AMINO ACID 4.25%-D10W IV SCH ×3 (04:36)
[2016-05-11 06:09] LABS: Glucose,Whole Blood 190 mg/dL (75-99)
[2016-05-11] MEDS: BUDESONIDE 1 MG/2 ML NEBU INHALATION SCH ×2 (06:56→19:51)
[2016-05-11] MEDS: IPRATROPIUM-ALBUTEROL 3 ML NEB INHALATION SCH ×4 (06:56→19:52)
[2016-05-11] MEDS: HEPARIN SODIUM,PORCINE 5,000 UNIT/ML 1 ML VIAL SQ SCH (08:08)
[2016-05-11 08:23] LABS: Basophils % (A) 0 %; CH 30.9; CHCM 33.5; Eosinophils % (A) 1 %; HCT 39.1 % (34.0-46.0); HDW 2.33; Luc # (Auto) 0.02; Luc % (Auto) 0; Lymphocytes # (A) 0.9 k/uL (1.0-4.8); Lymphocytes % (A) 11 %; MCH 30.7 pg (25.0-35.0); MCHC 33.2 g/dL (31.0-37.0); MCV 92.5 fL (80.0-100.0); Mean Platelet Volume 8.2; Monocytes # (A) 0.2 k/uL (0-1.0); Monocytes % (A) 2 %; Neutrophils # (A) 6.9 k/uL (1.3-7.7); Neutrophils % (A) 86 %; RBC 4.23 m/uL (3.80-5.40); RDW 11.9 % (11.5-15.5); WBC (Perox) 8.23
[2016-05-11 08:33] LABS: ALT 45 U/L (9-52); AST 15 U/L (14-36); Alkaline Phosphatase 71 U/L (38-126); Anion Gap 7 mmol/L; Blood Urea Nitrogen 31 mg/dL (7-17); Calcium 8.9 mg/dL (8.4-10.2); Carbon Dioxide 28 mmol/L (22-30); Chloride 106 mmol/L (98-107); Glucose 188 mg/dL (74-99); Magnesium 2.2 mg/dL (1.6-2.3); Non-African American GFR(MDRD) >60 (>60 ml/min/1.73 sqM); Phosphorous 2.8 mg/dL (2.5-4.5); Potassium 4.5 mmol/L (3.5-5.1); Sodium 141 mmol/L (137-145); Total Bilirubin 0.5 mg/dL (0.2-1.3); Total Protein 4.9 g/dL (6.3-8.2)
[2016-05-11 10:14] LABS: Glucose,Whole Blood 128 mg/dL (75-99)
[2016-05-11] MEDS ORDERED: ACETAMINOPHEN IV (For NPO) 1,000 MG in EMPTY BAG 1 BAG IVPB PRN (11:25)
[2016-05-11 12:13] LABS: Glucose,Whole Blood 128 mg/dL (75-99)
--- NOTE | 2016-05-11 15:48 | P.PN ---
Subjective Principal diagnosis: Malnutrition Patient tolerating tube feeds at 20 mL per hour. She still appears weak. Able to verbalize but very difficult to understand her speech. Objective - Vital Signs Vital signs: Vital Signs Temp 97.7 F 05/11/16 15:00 Pulse 68 05/11/16 15:46 Resp 16 05/11/16 15:00 BP 95/52 05/11/16 15:00 Pulse Ox 100 05/11/16 15:00 Intake & Output 05/10/16 05/11/16 05/11/16 18:59 06:59 18:59 Intake Total 1089 80 Balance 1089 80 Weight 63.5 kg 64.5 kg 63.8 kg Intake: IV 1089 Amino Acid 4.25%-D10w+ 900 Lytes*E* 1,000 ml @ 100 mls/hr IV .BY DURATION [facility] Rx#:[id number] Fat Emulsion 20% 250 ml 189 In Empty Bag 1 bag @ 21 mls/hr IV DAILY@1800 [facility] Rx#:[id number] Tube Feeding 80 Other: Voiding Method Diaper Diaper Diaper Incontinent Incontinent Incontinent # Voids 2 2 # Bowel Movements 1 - Exam Abdomen: Soft, nondistended, minimal tenderness at PEG site - Labs CBC & Chem 7: 05/11/16 07:38 05/11/16 07:38 Labs: Abnormal Lab Results - Last 24 Hours (Table) 05/10/16 05/11/16 05/11/16 Range/Units 17:26 00:30 06:07 Plt Count (150-450) k/uL Lymphocytes # (1.0-4.8) k/uL BUN (7-17) mg/dL Creatinine (0.52-1.04) mg/dL Glucose (74-99) mg/dL POC Glucose (mg/dL) 240 H 239 H 190 H (75-99) mg/dL Total Protein (6.3-8.2) g/dL Albumin (3.5-5.0) g/dL 05/11/16 05/11/16 05/11/16 Range/Units 07:38 07:38 10:13 Plt Count 54 L (150-450) k/uL Lymphocytes # 0.9 L (1.0-4.8) k/uL BUN 31 H (7-17) mg/dL Creatinine 0.42 L (0.52-1.04) mg/dL Glucose 188 H (74-99) mg/dL POC Glucose (mg/dL) 128 H (75-99) mg/dL Total Protein 4.9 L (6.3-8.2) g/dL Albumin 2.6 L (3.5-5.0) g/dL 05/11/16 Range/Units 12:10 Plt Count (150-450) k/uL Lymphocytes # (1.0-4.8) k/uL BUN (7-17) mg/dL Creatinine (0.52-1.04) mg/dL Glucose (74-99) mg/dL POC Glucose (mg/dL) 128 H (75-99) mg/dL Total Protein (6.3-8.2) g/dL Albumin (3.5-5.0) g/dL Assessment and Plan (1) Malnutrition Narrative/Plan: Continue gradually advancing tube feeds as tolerated. Dr. Vázquez will be covering me over the weekend. I will resume care on Saturday. I will not ask Dr. Vázquez to see this patient unless there are surgical issues. Please contact him if needed. Status: Acute
--- NOTE | 2016-05-11 17:01 | P.PN ---
Subjective 85-year-old female was recently discharged from the hospital after being treated for an acute exacerbation of heart failure comes in to the hospital from medical [place] after patient was noted to be more lethargic in the middle of the night. Patient was hospitalized for a week for an acute bronchitis causing acute exacerbation of COPD. Patient had a weak cough hence required prolonged hospitalization at that time. Patient required minimal amounts of oxygen for comfort. Patient was however discharge on 2 L supplemental oxygen. On the day of discharge patient was able to communicate was able to breathe normally and doing well. However 5-6 hours upon discharge she apparently got more lethargic unsure if patient got hypoxic if oxygen came off her. Patient was started on BiPAP this morning the selective care unit and improved rapidly. Patient continues to have a poor cough even at this time intermittently Patient also noted to be breathing very shallow. 05/02/2016 Patient underwent a fluoroscopic study to evaluate diaphragmatic paralysis. There is some question regarding underlying parkinsonism. Patient also had an episode of choking. Patient underwent a modified barium swallow and had significant amount of penetration. Intermittent hospital course Patient apparently has not tolerated NG tube treatment. There has been some discussion about a PEG tube placement. However due to misunderstanding and ethics consult was placed. Patient apparently was supposed to undergo a PEG tube placement however that was held up. I had a prolonged discussion with the family and another family member who was admitted bedside that my previous discussion before I went off service was that patient has poor prognosis and that feeding tubes do not prolong patient life and not necessarily require them additional procedures. However, apparently the family is adamant that a PEG be placed. It is also my understanding at that time patient was refusing any IVs or NG tube placements at that time.. Currently there is a long discussion , in questioning in regards to why this tube was in place today. I tried to re-explained the situation that these patients to not do well even if the PEG tube is placed that patient's end up having episodes of aspiration and this does not necessarily decrease the morbidity. . However family appears to be adamant that this be done. PEG tube will be placed. General surgery has evaluated the patient. Patient appears to be weak today does not answer many questions. States that she wants to leave. 05/10/16 Pt apparently pulled her IV out again this am. Discussed with the family at bedside. Pt verbalizes to understanding that she will have this procedure. pt is more awake. No new other complaints. 05/11/2016. Patient was again drowsy is tolerating her tube feeds at 20 mL per hour. No residuals were noted. No other new complaints were reported by the nursing staff. I did discuss in length with the daughter and the son of the patient regarding her prognosis. Objective - Vital Signs Vital signs: Vital Signs Temp 97.7 F 05/11/16 15:00 Pulse 68 05/11/16 15:46 Resp 16 05/11/16 15:00 BP 95/52 05/11/16 15:00 Pulse Ox 100 05/11/16 15:00 Intake & Output 05/10/16 05/11/16 05/11/16 18:59 06:59 18:59 Intake Total 1089 80 Balance 1089 80 Weight 63.5 kg 64.5 kg 63.8 kg Intake: IV 1089 Amino Acid 4.25%-D10w+ 900 Lytes*E* 1,000 ml @ 100 mls/hr IV .BY DURATION [facility] Rx#:[id number] Fat Emulsion 20% 250 ml 189 In Empty Bag 1 bag @ 21 mls/hr IV DAILY@1800 [facility] Rx#:[id number] Tube Feeding 80 Other: Voiding Method Diaper Diaper Diaper Incontinent Incontinent Incontinent # Voids 2 2 # Bowel Movements 1 - Exam gen appearance flat affect is able to answer some questions Lungs wheezing appreciated transmitted from the hypopharynx, improved. Heart regular rate and rhythm systolic murmur is appreciated at the aortic region Abdomen is soft nontender no organomegaly bowel sounds are intact Lower extremities no edema is appreciated Neurologically moves all 4 extremities - Labs CBC & Chem 7: 05/11/16 07:38 05/11/16 07:38 Labs: Abnormal Lab Results - Last 24 Hours (Table) 05/10/16 05/11/16 05/11/16 Range/Units 17:26 00:30 06:07 Plt Count (150-450) k/uL Lymphocytes # (1.0-4.8) k/uL BUN (7-17) mg/dL Creatinine (0.52-1.04) mg/dL Glucose (74-99) mg/dL POC Glucose (mg/dL) 240 H 239 H 190 H (75-99) mg/dL Total Protein (6.3-8.2) g/dL Albumin (3.5-5.0) g/dL 05/11/16 05/11/16 05/11/16 Range/Units 07:38 07:38 10:13 Plt Count 54 L (150-450) k/uL Lymphocytes # 0.9 L (1.0-4.8) k/uL BUN 31 H (7-17) mg/dL Creatinine 0.42 L (0.52-1.04) mg/dL Glucose 188 H (74-99) mg/dL POC Glucose (mg/dL) 128 H (75-99) mg/dL Total Protein 4.9 L (6.3-8.2) g/dL Albumin 2.6 L (3.5-5.0) g/dL 05/11/16 Range/Units 12:10 Plt Count (150-450) k/uL Lymphocytes # (1.0-4.8) k/uL BUN (7-17) mg/dL Creatinine (0.52-1.04) mg/dL Glucose (74-99) mg/dL POC Glucose (mg/dL) 128 H (75-99) mg/dL Total Protein (6.3-8.2) g/dL Albumin (3.5-5.0) g/dL Assessment and Plan Plan: Acute on chronic hypoxic respiratory failure #2 chronic hypercapnic respiratory failure #3 history of COPD with an acute exacerbation #4 dementia #5 hypertension #6 debility currently a resident of alf #7 dysphagia #8 parkinsonism? Plan Apparently after discussion patient's family wanted to discuss further plans of care with hospice. A consult will be placed. This was a difficult situation as finally after explaining that multiple studies are shown in patients with dementia were dependent on ADLs when they have a PEG tube placed for feeding outcomes did not ultimately defer however there lifestyle defers as most patients especially in our practice get readmitted for complications which include aspiration and other respiratory complications plus ulcers UTIs. This was discussed with the family. Further recommendations are to be made after family discussed with hospice this but will be deferred as well. Goals of care should be changed to keep her comfortable at that time.
[2016-05-11] MEDS: NEUPRO 2 MG/24 HR TRANSDERM SCH (17:23)
[2016-05-11 17:33] LABS: Glucose,Whole Blood 132 mg/dL (75-99)
[2016-05-12 00:02] LABS: Glucose,Whole Blood 154 mg/dL (75-99)
[2016-05-12] MEDS: INSULIN LISPRO (humaLOG) 300 UNIT/3 ML VIAL SQ SCH ×4 (00:07→18:42)
[2016-05-12 06:26] LABS: Glucose,Whole Blood 159 mg/dL (75-99)
[2016-05-12] MEDS: BUDESONIDE 1 MG/2 ML NEBU INHALATION SCH ×2 (07:25→20:56)
[2016-05-12] MEDS: IPRATROPIUM-ALBUTEROL 3 ML NEB INHALATION SCH ×4 (07:25→20:56)
[2016-05-12 07:49] LABS: Anion Gap 7 mmol/L; Blood Urea Nitrogen 26 mg/dL (7-17); Calcium 9.4 mg/dL (8.4-10.2); Carbon Dioxide 30 mmol/L (22-30); Chloride 104 mmol/L (98-107); Glucose 183 mg/dL (74-99); Magnesium 2.1 mg/dL (1.6-2.3); Non-African American GFR(MDRD) >60 (>60 ml/min/1.73 sqM); Phosphorous 2.9 mg/dL (2.5-4.5); Potassium 4.9 mmol/L (3.5-5.1); Sodium 141 mmol/L (137-145)
[2016-05-12 12:33] LABS: Glucose,Whole Blood 168 mg/dL (75-99)
[2016-05-12 18:37] LABS: Glucose,Whole Blood 175 mg/dL (75-99)
[2016-05-12] MEDS: NEUPRO 2 MG/24 HR TRANSDERM SCH (18:42)
[2016-05-12] MEDS ORDERED: METOCLOPRAMIDE 5 MG/ML 2 ML VIAL IVP PRN (18:59)
[2016-05-12] MEDS: HEPARIN SODIUM,PORCINE 5,000 UNIT/ML 1 ML VIAL SQ SCH (19:48)
[2016-05-12] MEDS: MEMANTINE 10 MG TAB PO SCH (19:48)
[2016-05-12] MEDS: PANTOPRAZOLE 40 MG TABLET PO SCH (19:48)
--- NOTE | 2016-05-12 20:58 | PN ---
DATE OF SERVICE: 05/12/2016 This 85-year-old woman who was admitted with acute on chronic hypoxic respiratory failure with COPD acute exacerbation, also had dysphagia. The patient probably has had an episode of TIA also. The patient had a PEG tube placed. At this time the patient complaints of burping. Otherwise the patient is tolerating PEG tube feeds at 55 mL/hour at this time. PAST MEDICAL HISTORY: Reviewed. REVIEW OF SYSTEMS: Could not be taken. Current medications are reviewed and include: 1. DuoNeb q.i.d. and p.r.n. 2. Pulmicort b.i.d. 3. Catapres-TTS. 4. Nupro. PHYSICAL EXAMINATION: The patient is conscious, confused. Pulse 98, blood pressure 135/66, respirations 15, temperature 98.1, pulse ox 99% on room air. HEENT: Conjunctivae normal. NECK: No JVD. CARDIOVASCULAR: S1 and S2 muffled. RESPIRATORY: Breath sounds diminished at the bases. A few scattered rhonchi and crackles. ABDOMEN: Soft. PEG tube inserted. LEGS: No edema, no swelling. NERVOUS SYSTEM: Diffusely weak. LABS: Platelets 54, albumin is 2.6. ASSESSMENT: 1. Chronic obstructive pulmonary disease, acute exacerbation, with acute hypoxic respiratory failure, present on admission. 2. Dysphagia, status post PEG tube placement. 3. Possible transient ischemic attack. 4. Possibly Parkinsonian syndrome. 5. Possible dementia. 6. Dehydration secondary to diminished oral intake. 7. Hyponatremia hypovolemic. 8. Gait dysfunction. 9. Chronic hypoxic respiratory failure. 10. Thrombocytopenia, chronic. 11. Increased random blood sugar. 12. Hypoalbuminemia with moderate severe malnutrition. 13. FULL CODE. RECOMMENDATIONS AND DISCUSSION: This 85-year-old woman who presented with multiple complex medical issues. We will monitor the patient closely. Continue the current medications. I would recommend continue with tube feeds. Head of the bed to be raised 45 degrees and aspiration precautions. Continue the bronchodilators, continue the rest of the medication. PT/OT evaluation. Supplement vitamins. Otherwise, DVT prophylaxis. The prognosis is guarded because of multiple complex medical issues which I discussed at length with the family. The family will look into NO CODE, NO CPR options. Continue to monitor. Possible discharged to ECF or AFC home near will be convenient for the family. Once again, the prognosis is guarded because of multiple complex medical issues. Discussed with the multiple members of the family including daughter, Jessi, at the bedside. Further recommendations to follow. MTDD
[2016-05-12 23:55] LABS: Glucose,Whole Blood 163 mg/dL (75-99)
[2016-05-13] MEDS: INSULIN LISPRO (humaLOG) 300 UNIT/3 ML VIAL SQ SCH ×4 (00:04→18:13)
[2016-05-13 05:56] LABS: Glucose,Whole Blood 185 mg/dL (75-99)
[2016-05-13 07:29] LABS: Basophils % (A) 0 %; CH 31.1; CHCM 33.7; Eosinophils # (A) 0.2 k/uL (0-0.7); Eosinophils % (A) 3 %; HDW 2.29; HGB 12.8 gm/dL (11.4-16.0); Luc # (Auto) 0.05; Luc % (Auto) 1; Lymphocytes # (A) 0.9 k/uL (1.0-4.8); Lymphocytes % (A) 10 %; MCH 30.5 pg (25.0-35.0); MCHC 32.9 g/dL (31.0-37.0); MCV 92.9 fL (80.0-100.0); Mean Platelet Volume 8.4; Monocytes # (A) 0.3 k/uL (0-1.0); Monocytes % (A) 3 %; Neutrophils # (A) 7.1 k/uL (1.3-7.7); Neutrophils % (A) 83 %; RDW 12.1 % (11.5-15.5); WBC 8.5 k/uL (3.8-10.6); WBC (Perox) 9.02
[2016-05-13 07:47] LABS: Anion Gap 6 mmol/L; Blood Urea Nitrogen 22 mg/dL (7-17); Calcium 9.1 mg/dL (8.4-10.2); Carbon Dioxide 29 mmol/L (22-30); Chloride 104 mmol/L (98-107); Glucose 180 mg/dL (74-99); Non-African American GFR(MDRD) >60 (>60 ml/min/1.73 sqM); Potassium 4.7 mmol/L (3.5-5.1); Sodium 139 mmol/L (137-145)
[2016-05-13] MEDS: PANTOPRAZOLE 40 MG TABLET PO SCH ×2 (07:55→18:09)
[2016-05-13] MEDS: HEPARIN SODIUM,PORCINE 5,000 UNIT/ML 1 ML VIAL SQ SCH ×2 (07:56→19:57)
[2016-05-13] MEDS: MEMANTINE 10 MG TAB PO SCH ×2 (07:56→19:58)
[2016-05-13] MEDS: ASPIRIN 81 MG CHEW PO SCH (07:56)
[2016-05-13] MEDS: BUDESONIDE 1 MG/2 ML NEBU INHALATION SCH ×2 (08:15→19:12)
[2016-05-13] MEDS: IPRATROPIUM-ALBUTEROL 3 ML NEB INHALATION SCH ×4 (08:15→19:13)
[2016-05-13 12:06] LABS: Glucose,Whole Blood 166 mg/dL (75-99)
[2016-05-13] MEDS: THIAMINE 100 MG TAB PO SCH (12:11)
[2016-05-13] MEDS: MULTIVITAMINS, THERA 1 EACH TAB PO SCH (12:11)
[2016-05-13] MEDS: FOLIC ACID 1 MG TAB PO SCH (12:11)
[2016-05-13] MEDS: cloNIDine 0.1 MG/24HR PATCH 1 PATCH PATCH TRANSDERM SCH (16:23)
[2016-05-13 17:40] LABS: Glucose,Whole Blood 142 mg/dL (75-99)
[2016-05-13] MEDS: methylPREDNISolone SOD SUCCI 40 MG/ML 1 ML VIAL IV SCH (18:12)
[2016-05-13] MEDS: NEUPRO 2 MG/24 HR TRANSDERM SCH (18:36)
[2016-05-14 01:05] LABS: Glucose,Whole Blood 253 mg/dL (75-99)
[2016-05-14 01:05] LABS: Glucose,Whole Blood 250 mg/dL (75-99)
[2016-05-14] MEDS: INSULIN LISPRO (humaLOG) 300 UNIT/3 ML VIAL SQ SCH ×4 (01:07→18:18)
[2016-05-14 06:18] LABS: Glucose,Whole Blood 126 mg/dL (75-99)
[2016-05-14] MEDS: HEPARIN SODIUM,PORCINE 5,000 UNIT/ML 1 ML VIAL SQ SCH ×2 (08:01→20:41)
[2016-05-14] MEDS: MEMANTINE 10 MG TAB PO SCH ×2 (08:01→20:41)
[2016-05-14] MEDS: ASPIRIN 81 MG CHEW PO SCH (08:01)
[2016-05-14] MEDS: PANTOPRAZOLE 40 MG TABLET PO SCH ×2 (08:01→18:17)
[2016-05-14] MEDS: methylPREDNISolone SOD SUCCI 40 MG/ML 1 ML VIAL IV SCH ×2 (08:01→20:41)
[2016-05-14] MEDS: BUDESONIDE 1 MG/2 ML NEBU INHALATION SCH ×2 (08:15→19:47)
[2016-05-14] MEDS: IPRATROPIUM-ALBUTEROL 3 ML NEB INHALATION SCH ×4 (08:15→19:47)
[2016-05-14 08:27] LABS: Anion Gap 9 mmol/L; Blood Urea Nitrogen 24 mg/dL (7-17); Calcium 9.6 mg/dL (8.4-10.2); Carbon Dioxide 26 mmol/L (22-30); Chloride 105 mmol/L (98-107); Glucose 154 mg/dL (74-99); Non-African American GFR(MDRD) >60 (>60 ml/min/1.73 sqM); Phosphorous 3.5 mg/dL (2.5-4.5); Potassium 4.9 mmol/L (3.5-5.1); Sodium 140 mmol/L (137-145)
[2016-05-14 08:28] LABS: Basophils % (A) 0 %; CH 31.2; CHCM 33.8; Eosinophils % (A) 0 %; HCT 39.5 % (34.0-46.0); HDW 2.35; HGB 13.1 gm/dL (11.4-16.0); Luc # (Auto) 0.04; Luc % (Auto) 0; Lymphocytes # (A) 0.4 k/uL (1.0-4.8); Lymphocytes % (A) 4 %; MCH 30.8 pg (25.0-35.0); MCHC 33.2 g/dL (31.0-37.0); MCV 92.6 fL (80.0-100.0); Mean Platelet Volume 8.9; Monocytes # (A) 0.3 k/uL (0-1.0); Monocytes % (A) 3 %; Neutrophils # (A) 8.6 k/uL (1.3-7.7); Neutrophils % (A) 92 %; RBC 4.27 m/uL (3.80-5.40); RDW 12.1 % (11.5-15.5); WBC 9.4 k/uL (3.8-10.6); WBC (Perox) 9.88
--- NOTE | 2016-05-14 09:14 | PN ---
DATE OF SERVICE: 05/13/2016 This is an 85-year-old woman who was admitted with COPD acute exacerbation, with acute hypoxic respiratory failure, also had dysphagia. The patient had a PEG tube placement also. The patient is confused but able tor respond minimally at this time. The patient also had some wheezing also. PAST MEDICAL HISTORY: Reviewed. REVIEW OF SYSTEMS: Could not be taken. Current medications are reviewed and include DuoNeb q.i.d. and p.r.n., aspirin 81 mg, Pulmicort 1 mg b.i.d., folic acid, Humalog, Namenda, Protonix, vitamin B1. PHYSICAL EXAM: Patient is alert and oriented x1. Pulse 75, blood pressure 114/59, respirations 16, temperature 98.4, pulse ox is 94% on room air. HEENT: Conjunctivae normal. NECK: No jugular venous distension. CARDIOVASCULAR SYSTEM: S1, S2, muffled. RESPIRATORY: Breath sounds diminished at the bases. A few scattered rhonchi. ABDOMEN: Soft, nontender. EXTREMITIES: Legs no edema, no swelling. LABS: The platelets are 57. ASSESSMENT: 1. Chronic obstructive pulmonary disease acute exacerbation, with acute hypoxic respiratory failure with acute purulent tracheobronchitis present on admission. 2. Dysphagia, status post PEG tube placement. 3. Possible transient ischemic attack. 4. Possible Parkinsonian features. 5. Possible dementia. 6. Dehydration secondary to diminished oral intake. 7. Hyponatremia, hypovolemic. 8. Gait dysfunction. 9. Chronic hypoxic respiratory failure. 10. Thrombocytopenia, chronic. 11. Increased random blood sugar. 12. Hypoalbuminemia with moderate to severe malnutrition. 13. FULL CODE. RECOMMENDATION: In this 85-year-old woman who presented with multiple complex medical issues, will monitor the patient closely. Continue with the current medication and symptomatic treatment. Otherwise, at this time I would recommend to continue with the PEG tube feeds, aspiration precautions. I would also recommend a small dose of steroids also. Continue to monitor. Further recommendations to follow.
[2016-05-14] MEDS: FOLIC ACID 1 MG TAB PO SCH (11:54)
[2016-05-14] MEDS: MULTIVITAMINS, THERA 1 EACH TAB PO SCH (11:54)
[2016-05-14] MEDS: THIAMINE 100 MG TAB PO SCH (11:54)
[2016-05-14 11:57] LABS: Glucose,Whole Blood 184 mg/dL (75-99)
[2016-05-14 15:48] VITALS: BMI 21.4
--- NOTE | 2016-05-14 16:55 | P.PN ---
Subjective his is a 85-year-old female patient who has significant dementia. She was admitted on 05/01/2016 for complaints of increasing shortness of breath. Her chest x-ray showed a left lower lobe atelectasis and possible left pleural effusion. There was some evidence of elevated hemidiaphragm however a sniff test was negative and there is no suggestion of paralysis of the hemidiaphragm. Some chronic elevations of the left hemidiaphragm. She had also undergone a swallow evaluation and there which needed to be stopped as she had significant aspiration thin liquids as well as honey thickened liquids. She has a nasogastric tube in place and is receiving tube feedings. On 05/14/2016, the patient is being seen in follow-up. The patient had a PEG tube inserted and the exact circumstances under which the PEG tube was inserted was noted to. Were initiated on this patient and currently the patient is on 55 mL an hour of Glucerna. No reported shortness of breath. No reported aspiration noted. Her quality of left remains extremely poor and the patient is bedridden and she is oriented to person only. The patient is being considered for hospice care, however the ongoing plan for now is to send her to rehab at in [place]. She is no code meaning DNR/DNI. Objective - Vital Signs Vital signs: Vital Signs Temp 97.7 F 05/14/16 15:00 Pulse 80 05/14/16 16:31 Resp 16 05/14/16 15:00 BP 132/58 05/14/16 15:00 Pulse Ox 93 L 05/14/16 15:00 Intake & Output 05/13/16 05/14/16 05/14/16 18:59 06:59 18:59 Intake Total 660 660 220 Output Total 1 1 Balance 660 659 219 Weight 62 kg 62 kg Intake: Tube Feeding 660 660 220 Output: Stool 1 1 Other: Voiding Method Diaper Diaper Diaper Incontinent Incontinent Incontinent # Voids 1 - Labs CBC & Chem 7: 05/14/16 07:57 05/14/16 07:57 Labs: Abnormal Lab Results - Last 24 Hours (Table) 05/13/16 05/14/16 05/14/16 Range/Units 17:38 01:03 01:04 Plt Count (150-450) k/uL Neutrophils # (1.3-7.7) k/uL Lymphocytes # (1.0-4.8) k/uL BUN (7-17) mg/dL Creatinine (0.52-1.04) mg/dL Glucose (74-99) mg/dL POC Glucose (mg/dL) 142 H 250 H 253 H (75-99) mg/dL 05/14/16 05/14/16 05/14/16 Range/Units 06:16 07:57 07:57 Plt Count 71 L (150-450) k/uL Neutrophils # 8.6 H (1.3-7.7) k/uL Lymphocytes # 0.4 L (1.0-4.8) k/uL BUN 24 H (7-17) mg/dL Creatinine 0.34 L (0.52-1.04) mg/dL Glucose 154 H (74-99) mg/dL POC Glucose (mg/dL) 126 H (75-99) mg/dL 05/14/16 Range/Units 11:56 Plt Count (150-450) k/uL Neutrophils # (1.3-7.7) k/uL Lymphocytes # (1.0-4.8) k/uL BUN (7-17) mg/dL Creatinine (0.52-1.04) mg/dL Glucose (74-99) mg/dL POC Glucose (mg/dL) 184 H (75-99) mg/dL Assessment and Plan Plan: Impression: #1 Acute on chronic hypoxic respiratory failure secondary to underlying chronic obstructive pulmonary disease and aspiration. The patient currently is nothing by mouth and she has a feeding tube placed and receiving enteral feeding for nutritional support. She is extremely debilitated secondary to underlying Parkinson's disease/dementia. #2 Parkinson's disease. #3 Congestive heart failure. #4 Hypothyroidism. #5 Dementia. #6 weak cough and suspected vocal cords weakness /paralysis, along with ongoing dysphagia secondary to neuromuscular weakness. Plan: Patient is stable for now. The plan is to discharge this patient to skilled nursing with the next 24 hours. Continue with aspiration precautions. 24-hour sitter at the bedside. The steroids should be further tapered.
[2016-05-14 18:02] LABS: Glucose,Whole Blood 168 mg/dL (75-99)
[2016-05-14] MEDS: NEUPRO 2 MG/24 HR TRANSDERM SCH (18:17)
--- NOTE | 2016-05-14 20:02 | PN ---
DATE OF SERVICE: 05/14/2016 This 85 -year-old woman was admitted with COPD acute exacerbation also had significant dysphagia. PEG tube inserted. Patient able to tolerated tube feeds. Dr. Dickey as well as Dr. Watt is following the patient closely. The patient slated to go to have ECF also. The patient had a sitter last night. Past medical history reviewed. Review of systems could not be taken. The patient is dysphonic. Current medications are reviewed and include: 1. DuoNeb q.i.d. and p.r.n. 2. Aspirin 81 mg. 3. Pulmicort 1 mg b.i.d. 4. Catapres-TTS 0.1 q. 7 days. 5. Folic acid 1 mg daily. 6. Heparin 5000 subcu b.i.d. 7. Lovenox to scale. 8. Namenda 20 mg p.o. b.i.d. 9. Solu-Medrol 20 mg IV b.i.d. 10. Reglan. 11. Multivitamins. 12. Protonix. 13. Vitamin B1. 14. Tobrex eye drops. PHYSICAL EXAMINATION: Conscious but confused. Minimally verbal. Pulse 78. Blood pressure 132/58. Respiratory rate 16. Temperature 97.7. Pulse ox 93% on room air. HEENT: Conjunctivae normal. Oral mucosa moist. NECK: No jugular venous distention. No carotid bruit. No lymph node enlargement. No thyroid enlargement. CARDIOVASCULAR: S1, S2 muffled. RESPIRATORY: Breath sounds diminished at the bases. A few scattered rhonchi and no crackles. ABDOMEN: Soft. PEG tube in situ. No mass palpable. No ascites. LEGS: No edema. No swelling. CENTRAL NERVOUS SYSTEM: Higher functions as mentioned earlier. Moves all four limbs. No focal deficits. LYMPHATICS: No lymph nodes palpable in the neck, axillae or groin. SKIN: No ulcer, rash or bleeding. LABS: At this time shows platelets are 71 and other labs are noted. ASSESSMENT: 1. Chronic obstructive pulmonary disease acute exacerbation with acute respiratory failure with acute purulent tracheobronchitis, present on admission. 2. Dysphagia, status post PEG tube placement. 3. Possible transient ischemic attack. 4. Possible Parkinsonian features. 5. Possible dementia. 6. Dehydration secondary to diminished oral intake. 7. Hyponatremia hypovolemic. 8. Gait dysfunction. 9. Chronic hypoxic respiratory failure. 10. Thrombocytopenia, chronic. 11. Increased random blood sugar. 12. Hypoalbuminemia with moderate to severe malnutrition. RECOMMENDATIONS AND DISCUSSION: In this 85-year-old woman who presented with multiple complex medical issues, we will monitor the patient closely. Continue with the current medications, continue symptomatic treatment. Continue with tube feeds. Head of the bed elevated to 45 degrees. Continue the rest of the medications, bronchodilators, and short course of steroids, PT/OT evaluation, possible ECF rehab. Discontinue the sitter. The patient's sensorium appears to be improving at this time. Again, the prognosis is extremely guarded. Further recommendations to follow. Discussed with the family at length.
--- NOTE | 2016-05-14 20:20 | P.PN ---
Subjective Principal diagnosis: Malnutrition Patient without new complaints. Denies abdominal pain. Tolerating tube feeds at 55 mL per hour. Objective - Vital Signs Vital signs: Vital Signs Temp 97.7 F 05/14/16 15:00 Pulse 84 05/14/16 20:03 Resp 16 05/14/16 15:00 BP 132/58 05/14/16 15:00 Pulse Ox 93 L 05/14/16 15:00 Intake & Output 05/14/16 05/14/16 05/15/16 06:59 18:59 06:59 Intake Total 660 220 Output Total 1 1 Balance 659 219 Weight 62 kg 62 kg Intake: Tube Feeding 660 220 Output: Stool 1 1 Other: Voiding Method Diaper Diaper Incontinent Incontinent # Voids 1 - Exam Abdomen: Soft, nontender, nondistended, PEG tube bolster loosened by 0.5 cm - Labs CBC & Chem 7: 05/14/16 07:57 05/14/16 07:57 Labs: Abnormal Lab Results - Last 24 Hours (Table) 05/14/16 05/14/16 05/14/16 Range/Units 01:03 01:04 06:16 Plt Count (150-450) k/uL Neutrophils # (1.3-7.7) k/uL Lymphocytes # (1.0-4.8) k/uL BUN (7-17) mg/dL Creatinine (0.52-1.04) mg/dL Glucose (74-99) mg/dL POC Glucose (mg/dL) 250 H 253 H 126 H (75-99) mg/dL 05/14/16 05/14/16 05/14/16 Range/Units 07:57 07:57 11:56 Plt Count 71 L (150-450) k/uL Neutrophils # 8.6 H (1.3-7.7) k/uL Lymphocytes # 0.4 L (1.0-4.8) k/uL BUN 24 H (7-17) mg/dL Creatinine 0.34 L (0.52-1.04) mg/dL Glucose 154 H (74-99) mg/dL POC Glucose (mg/dL) 184 H (75-99) mg/dL 05/14/16 Range/Units 18:00 Plt Count (150-450) k/uL Neutrophils # (1.3-7.7) k/uL Lymphocytes # (1.0-4.8) k/uL BUN (7-17) mg/dL Creatinine (0.52-1.04) mg/dL Glucose (74-99) mg/dL POC Glucose (mg/dL) 168 H (75-99) mg/dL Assessment and Plan (1) Malnutrition Narrative/Plan: Continue tube feeds at goal. We'll sign off at this point. Please contact if needed. Status: Acute
[2016-05-14] MEDS: TOBRA-DEXAMET 0.3-0.1% OPHTH DROPS 2.5 ML BTL BOTH EYES SCH (20:42)
[2016-05-15] MEDS: INSULIN LISPRO (humaLOG) 300 UNIT/3 ML VIAL SQ SCH ×3 (00:30→12:39)
[2016-05-15 00:38] LABS: Glucose,Whole Blood 192 mg/dL (75-99)
[2016-05-15 06:04] LABS: Glucose,Whole Blood 239 mg/dL (75-99)
[2016-05-15] MEDS: BUDESONIDE 1 MG/2 ML NEBU INHALATION SCH (07:40)
[2016-05-15] MEDS: IPRATROPIUM-ALBUTEROL 3 ML NEB INHALATION SCH ×3 (07:40→16:37)
[2016-05-15 08:37] VITALS: RESP 18
[2016-05-15 08:47] LABS: Basophils % (A) 0 %; CH 31.4; CHCM 33.7; Eosinophils % (A) 0 %; HCT 38.2 % (34.0-46.0); HDW 2.34; HGB 12.4 gm/dL (11.4-16.0); Luc # (Auto) 0.03; Luc % (Auto) 0; Lymphocytes # (A) 0.3 k/uL (1.0-4.8); Lymphocytes % (A) 4 %; MCH 30.5 pg (25.0-35.0); MCHC 32.6 g/dL (31.0-37.0); MCV 93.6 fL (80.0-100.0); Monocytes # (A) 0.1 k/uL (0-1.0); Monocytes % (A) 2 %; Neutrophils # (A) 7.5 k/uL (1.3-7.7); Neutrophils % (A) 94 %; RBC 4.08 m/uL (3.80-5.40); RDW 12.3 % (11.5-15.5); WBC (Perox) 8.33
[2016-05-15 08:58] LABS: Anion Gap 9 mmol/L; Blood Urea Nitrogen 29 mg/dL (7-17); Calcium 9.3 mg/dL (8.4-10.2); Carbon Dioxide 28 mmol/L (22-30); Chloride 103 mmol/L (98-107); Glucose 226 mg/dL (74-99); Non-African American GFR(MDRD) >60 (>60 ml/min/1.73 sqM); Phosphorous 3.4 mg/dL (2.5-4.5); Potassium 4.8 mmol/L (3.5-5.1); Sodium 140 mmol/L (137-145)
[2016-05-15] MEDS: methylPREDNISolone SOD SUCCI 40 MG/ML 1 ML VIAL IV SCH (09:39)
[2016-05-15] MEDS: HEPARIN SODIUM,PORCINE 5,000 UNIT/ML 1 ML VIAL SQ SCH (09:39)
[2016-05-15] MEDS: MULTIVITAMINS, THERA 1 EACH TAB PO SCH (09:40)
[2016-05-15] MEDS: MEMANTINE 10 MG TAB PO SCH (09:40)
[2016-05-15] MEDS: FOLIC ACID 1 MG TAB PO SCH (09:40)
[2016-05-15] MEDS: PANTOPRAZOLE 40 MG TABLET PO SCH (09:40)
[2016-05-15] MEDS: TOBRA-DEXAMET 0.3-0.1% OPHTH DROPS 2.5 ML BTL BOTH EYES SCH (09:40)
[2016-05-15] MEDS: ASPIRIN 81 MG CHEW PO SCH (09:40)
[2016-05-15] MEDS: THIAMINE 100 MG TAB PO SCH (09:40)
--- NOTE | 2016-05-15 11:48 | XR ---
EXAMINATION TYPE: XR chest 1V portable DATE OF EXAM: 05/15/2016 11:43 AM COMPARISON: 05/05/2016 INDICATION: CHF TECHNIQUE: Single frontal view of the chest is obtained. FINDINGS: The heart size is normal. The pulmonary vasculature is normal. Minimal infiltrate may be present. Early alveolar infiltrate could be considered. Correlate for volum e overload. IMPRESSION: 1. Early minimal pulmonary edema may be present. Clinical correlation is recommended.
[2016-05-15 12:34] LABS: Glucose,Whole Blood 191 mg/dL (75-99)
--- NOTE | 2016-05-15 12:46 | DS ---
DATE OF ADMISSION: 05/01/2016 DATE OF DISCHARGE: FINAL DIAGNOSES: 1. Chronic obstructive pulmonary disease acute exacerbation, with acute purulent tracheobronchitis with acute hypoxic respiratory failure, present on admission. 2. Dysphagia, status post PEG tube placement. 3. Change in mental status with metabolic encephalopathy, acute on chronic. 4. Possible transient ischemic attack. 5. Possible Parkinsonian features. 6. Possible dementia. 7. Dehydration secondary to diminished p.o. intake. 8. Hypovolemic hyponatremia. 9. Gait dysfunction. 10. Chronic hypoxic respiratory failure. 11. Thrombocytopenia, chronic. 12. Increased random blood sugar. 13. Hypoalbuminemia with moderate to severe malnutrition. 14. NO CODE, NO CARDIOPULMONARY RESUSCITATION, NO VENTILATOR. DISCHARGE DISPOSITION: The patient will discharged in a stable condition with guarded prognosis. Total time taken 35 minutes. The patient will be transferred to [facility]. HISTORY OF PRESENT ILLNESS: This 85-year-old woman with a past medical history of multiple medical problems, admitted with COPD and as well as multiple other complex medical issues. Patient was treated symptomatically. Patient also had dysphagia. PEG tube was inserted after prolonged discussion with the family. Please refer to the previous dictation for further details. Currently the PEG tube is being monitored. The family would like to go with NO CODE, NO CPR at this time and continue to monitor. Discharge advice: 1. Diet is n.p.o. 2. Follow up with the primary physician in 2 to 3 days. 3. Follow up with Pulmonary as advised. 4. Follow up with Dr. Claudio Roca as recommended. Medications are: 1. Aspirin 81 mg per PEG daily. 2. Pulmicort 1 mg updrafts b.i.d. 3. Ceftin 500 mg per PEG b.i.d. 4. Colace 100 mg daily p.r.n. hold if the patient has diarrhea. 5. Folic acid 1 mg daily. 6. Lasix 20 mg daily. 7. Humalog scale 150 to 200 = 2 units; 201 to 250 = 4 units; 251 to 300 = 6 units; 301 to 350 = 8 units; 351 to 400 = 10 units; more than 400 call. 8. Albuterol, Atrovent updrafts q.i.d. and p.r.n. 9. Namenda 10 mg p.o. b.i.d. 10. Reglan 5 mg a.c. t.i.d. 11. Multivitamin 1 daily. 12. Protonix 40 mg b.i.d. 13. Thiamin 100 mg daily. 14. Tobradex 1 drop b.i.d. 15. Clonidine 0.1 patch q. weekly. 16. Prednisone taper, so that will be 40 mg daily for 3 days, 30 for 3 days, 20 for 3 days, 10 for 3 days.
[2016-05-15] MEDS ORDERED: FUROSEMIDE 10 MG/ML 4 ML VIAL IV STA (14:13)
[2016-05-15 15:03] VITALS: BP 116/59; TEMP 97.7
--- NOTE | 2016-05-15 15:47 | P.PN ---
Subjective This is a 85-year-old female patient who has significant dementia. She was admitted on 05/01/2016 for complaints of increasing shortness of breath. Her chest x-ray showed a left lower lobe atelectasis and possible left pleural effusion. There was some evidence of elevated hemidiaphragm however a sniff test was negative and there is no suggestion of paralysis of the hemidiaphragm. Some chronic elevations of the left hemidiaphragm. She had also undergone a swallow evaluation and there which needed to be stopped as she had significant aspiration thin liquids as well as honey thickened liquids. She has a nasogastric tube in place and is receiving tube feedings. She is seen again today 05/15/2016 in follow-up. She is awake and alert in no acute distress. She is status post PEG tube insertion and his is tolerating tube feedings at 50 MLS per hour of Glucerna. She is maintaining good O2 saturations in the upper 90s to 100% on 3 L/m per nasal cannula. She's been afebrile. She did have an additional dose of Lasix today for evidence of congestive heart failure on her chest x-ray. Objective - Vital Signs Vital signs: Vital Signs Temp 97.7 F 05/15/16 15:00 Pulse 75 05/15/16 15:00 Resp 18 05/15/16 15:00 BP 116/59 05/15/16 15:00 Pulse Ox 100 05/15/16 15:00 Intake & Output 05/14/16 05/15/16 05/15/16 18:59 06:59 18:59 Intake Total 220 220 Output Total 1 Balance 219 220 Weight 62 kg 63 kg Intake: Tube Feeding 220 220 Output: Stool 1 Other: Voiding Method Diaper Diaper Diaper Incontinent Incontinent Incontinent - Exam GENERAL EXAM: Alert, confused to time and place, comfortable in no apparent distress. HEAD: Normocephalic. EYES: Normal reaction of pupils, equal size. NOSE: Clear with pink turbinates. Nasogastric tube secured in place. THROAT: No erythema or exudates. NECK: No masses, no JVD. CHEST: No chest wall deformity. LUNGS: Equal air entry with few scattered rhonchi. Diminished in the left base. CVS: S1 and S2 normal with no audible murmurs, regular rhythm. ABDOMEN: PEG tube exit site is clean and dry., soft hypoactive bowel sounds, no guarding or rigidity. Extrema is: No significant peripheral edema. No clubbing, no cyanosis. Peripheral pulses are intact. - Labs CBC & Chem 7: 05/15/16 07:56 05/15/16 07:56 Labs: Abnormal Lab Results - Last 24 Hours (Table) 05/14/16 05/15/16 05/15/16 Range/Units 18:00 00:27 06:03 Plt Count (150-450) k/uL Lymphocytes # (1.0-4.8) k/uL BUN (7-17) mg/dL Creatinine (0.52-1.04) mg/dL Glucose (74-99) mg/dL POC Glucose (mg/dL) 168 H 192 H 239 H (75-99) mg/dL 05/15/16 05/15/16 05/15/16 Range/Units 07:56 07:56 12:32 Plt Count 83 L (150-450) k/uL Lymphocytes # 0.3 L (1.0-4.8) k/uL BUN 29 H (7-17) mg/dL Creatinine 0.33 L (0.52-1.04) mg/dL Glucose 226 H (74-99) mg/dL POC Glucose (mg/dL) 191 H (75-99) mg/dL Assessment and Plan Plan: Impression: #1 Acute on chronic hypoxic respiratory failure secondary to underlying chronic obstructive pulmonary disease, medical debility, aspiration. #2 Parkinson's disease. #3 Congestive heart failure. #4 Hypothyroidism. #5 Dementia. Plan: The patient was seen and evaluated by Dr. Dickey. The patient was definitely aspirating and her swallow evaluation had to be stopped prematurely secondary to the same. She is now status post PEG tube insertion and is tolerating her tube feedings. She remains on aspiration precautions. Out of bed is elevated. She remains a DO NOT RESUSCITATE/DO NOT INTUBATE CODE STATUS. We will follow the patient on as-needed basis.
[2016-05-15 16:50] VITALS: PULSE 76
== END 2016-05-15 17:20 | DRG 189 ==
LOC: EC 03:44 → 6SEL 05:15 → 3SUR 05-03 21:39 → 5ONC 05-09 20:43
PROVIDERS: ADMIT Internal Medicine; ATTEND Internal Medicine
PROC: 0DH63UZ Insertion of Feeding Device into Stomach, Percutaneous Approach (ICD-10-PCS; principal; 2016-05-10 14:30)
DX: J96.21 Acute and chronic respiratory failure with hypoxia (principal); E43 Unspecified severe protein-calorie malnutrition; G93.41 Metabolic encephalopathy; E87.3 Alkalosis; R13.10 Dysphagia, unspecified; J44.0 Chronic obstructive pulmonary disease with (acute) lower respiratory infection; D69.6 Thrombocytopenia, unspecified; F03.90 Unspecified dementia, unspecified severity, without behavioral disturbance, psychotic disturbance, mood disturbance, and anxiety; I50.32 Chronic diastolic (congestive) heart failure; E87.1 Hypo-osmolality and hyponatremia; J44.1 Chronic obstructive pulmonary disease with (acute) exacerbation; G45.9 Transient cerebral ischemic attack, unspecified; J98.11 Atelectasis; I11.0 Hypertensive heart disease with heart failure; G20 Parkinson's disease; E86.0 Dehydration; E86.1 Hypovolemia; J96.22 Acute and chronic respiratory failure with hypercapnia; J20.9 Acute bronchitis, unspecified; E03.9 Hypothyroidism, unspecified; K56.41 Fecal impaction; Z66 Do not resuscitate; Z74.01 Bed confinement status; Z79.82 Long term (current) use of aspirin; Z87.891 Personal history of nicotine dependence; Z96.641 Presence of right artificial hip joint
CPT/HCPCS: 36415; 36600; 43246; 71010; 71020; 74000; 74230; 76000; 80048; 80053; 82040; 82330; 82550; 82553; 82805; 83605; 83735; 83880; 84100; 84132; 84478; 84484; 85025; 85610; 85730; 93005; 94640; 94660; 94760; 99291